=== PATIENT | male | born 1960 | race Caucasian/White ===

== ENCOUNTER 2019-05-05 16:19 | Inpatient (IN) | payer MEDICARE, OTHER ==
[2019-05-05 16:49] LABS: Basophils # (A) 0.1 k/uL (0-0.2); Basophils % (A) 1 %; Eosinophils # (A) 0.2 k/uL (0-0.7); Eosinophils % (A) 2 %; HCT 52.1 % (39.0-53.0); HGB 17.5 gm/dL (13.0-17.5); Lymphocytes # (A) 1.5 k/uL (1.0-4.8); Lymphocytes % (A) 15 %; MCH 31.5 pg (25.0-35.0); MCHC 33.6 g/dL (31.0-37.0); MCV 93.9 fL (80.0-100.0); Mean Platelet Volume 8.6; Monocytes # (A) 0.4 k/uL (0-1.0); Monocytes % (A) 4 %; Neutrophils # (A) 7.4 k/uL (1.3-7.7); Neutrophils % (A) 77 %; Platelet Count 171 k/uL (150-450); RBC 5.54 m/uL (4.30-5.90); RDW 13.1 % (11.5-15.5); WBC 9.6 k/uL (3.8-10.6)
[2019-05-05 16:59] LABS: Albumin 4.5 g/dL (3.5-5.0); Calcium 9.7 mg/dL (8.4-10.2); Potassium 4.3 mmol/L (3.5-5.1); Total Bilirubin 0.7 mg/dL (0.2-1.3); Total Protein 7.3 g/dL (6.3-8.2)
[2019-05-05 17:05] LABS: Prothrombin Time 10.9 sec (9.0-12.0)
[2019-05-05] MEDS ORDERED: NITROGLYCERIN OINT 1 INCH/GM PACKET TOPICAL STA (18:00)
[2019-05-05] MEDS ORDERED: ASPIRIN 81 MG PO STA (18:00)
--- NOTE | 2019-05-05 18:05 | ED ---
General Adult HPI - General Chief complaint: Chest Pain Stated complaint: chest pain Time Seen by Provider: 05/05/19 16:20 Source: patient, RN notes reviewed Mode of arrival: ambulatory Limitations: no limitations - History of Present Illness Initial comments: This is a 59-year-old male who presents emergency Department with a past history significant for diabetes hypertension high cholesterol as well as stent his right carotid. Patient comes in today stating that he's had chest pain on and off over the last 3 days but today it was very significant P patient states he was in the right he started having chest pain became very diaphoretic and short of breath and nauseated. Patient denies any radiation of the pain. Patient states this is similar to the pain is been having over the last couple of days however today's pain was much worse. Patient currently states he only has very minimal chest pain at this time. Patient denies any shortness of breath currently. Patient denies any recent fever chills or cough per patient denies lightheadedness or dizziness. Patient denies any headache patient denies numbness weakness. Patient denies any swelling to legs or calf tenderness. - Related Data Home Medications Medication Instructions Recorded Confirmed Atenolol [Tenormin] 50 mg PO DAILY 05/05/19 05/05/19 Atorvastatin [Lipitor] 20 mg PO HS 05/05/19 05/05/19 Fenofibric Acid (Choline) 45 mg PO HS 05/05/19 05/05/19 [Trilipix] Lisinopril [Zestril] 10 mg PO HS 05/05/19 05/05/19 Pantoprazole Sodium [Protonix] 40 mg PO HS 05/05/19 05/05/19 Venlafaxine HCl [Effexor XR] 75 mg PO DAILY 05/05/19 05/05/19 Allergies Allergy/AdvReac Type Severity Reaction Status Date / Time naproxen [From Naprosyn] Allergy Rash/Hives Verified 05/05/19 18:05 Review of Systems ROS Statement: Those systems with pertinent positive or pertinent negative responses have been documented in the HPI. ROS Other: All systems not noted in ROS Statement are negative. Past Medical History Past Medical History: Hyperlipidemia, Hypertension History of Any Multi-Drug Resistant Organisms: None Reported Past Surgical History: Heart Catheterization With Stent, Orthopedic Surgery Past Psychological History: No Psychological Hx Reported Smoking Status: Never smoker Past Alcohol Use History: None Reported Past Drug Use History: Marijuana General Exam - General Exam Comments Initial Comments: GENERAL: Patient is well-developed and well-nourished. Patient is nontoxic and well- hydrated and is in mild distress. ENT: Neck is soft and supple. No significant lymphadenopathy is noted. Oropharynx is clear. Moist mucous membranes. Neck has full range of motion without eliciting any pain. EYES: The sclera were anicteric and conjunctiva were pink and moist. Extraocular movements were intact and pupils were equal round and reactive to light. Eyelids were unremarkable. PULMONARY: Unlabored respirations. Good breath sounds bilaterally. No audible rales rhonchi or wheezing was noted. CARDIOVASCULAR: There is a regular rate and rhythm without any murmurs gallops or rubs. ABDOMEN: Soft and nontender with normal bowel sounds. No palpable organomegaly was noted. There is no palpable pulsatile mass. SKIN: Skin is clear with no lesions or rashes and otherwise unremarkable. NEUROLOGIC: Patient is alert and oriented x3. Cranial nerves II through XII are grossly intact. Motor and sensory are also intact. Normal speech, volume and content. Symmetrical smile. MUSCULOSKELETAL: Normal extremities with adequate strength and full range of motion. No lower extremity swelling or edema. No calf tenderness. LYMPHATICS: No significant lymphadenopathy is noted PSYCHIATRIC: Normal psychiatric evaluation. Limitations: no limitations Course Vital Signs 05/05/19 16:21 Temperature 97.7 F Pulse Rate 70 Respiratory 18 Rate Blood Pressure 127/81 O2 Sat by Pulse 100 Oximetry Medical Decision Making - Medical Decision Making EKG shows normal sinus rhythm at 60 bpm NV interval 262 QRS is 82 QT interval 400 QTC is 400. Patient's EKG shows T-wave inversions in the lateral leads II, III, and F aVF. Repeat EKG was done patient had sinus bradycardia 50 bpm NV interval is 164 QRS is 74 QT interval 418 QTC is 392. Patient's EKG no longer showed T-wave inversions in the inferior leads. EKG signs of inverted T waves has resolved the patient's pain is considerably better. Because of this I did place the patient on heparin. I spoke with Dr. Thomas he agreed to admit the patient admitted the patient I wrote admitting orders. I continued heparin and aspirin and Nitropaste were continued on the floor and troponins were repeated every 6 hours - Lab Data Result diagrams: 05/05/19 16:37 05/05/19 16:37 Lab Results 05/05/19 05/05/19 05/05/19 Range/Units 16:37 16:37 16:37 WBC 9.6 (3.8-10.6) k/uL RBC 5.54 (4.30-5.90) m/uL Hgb 17.5 (13.0-17.5) gm/dL Hct 52.1 (39.0-53.0) % MCV 93.9 (80.0-100.0) fL MCH 31.5 (25.0-35.0) pg MCHC 33.6 (31.0-37.0) g/dL RDW 13.1 (11.5-15.5) % Plt Count 171 (150-450) k/uL Neutrophils % 77 % Lymphocytes % 15 % Monocytes % 4 % Eosinophils % 2 % Basophils % 1 % Neutrophils # 7.4 (1.3-7.7) k/uL Lymphocytes # 1.5 (1.0-4.8) k/uL Monocytes # 0.4 (0-1.0) k/uL Eosinophils # 0.2 (0-0.7) k/uL Basophils # 0.1 (0-0.2) k/uL PT 10.9 (9.0-12.0) sec INR 1.0 (<1.2) APTT 22.0 (22.0-30.0) sec Sodium 143 (137-145) mmol/L Potassium 4.3 (3.5-5.1) mmol/L Chloride 109 H (98-107) mmol/L Carbon Dioxide 23 (22-30) mmol/L Anion Gap 11 mmol/L BUN 21 H (9-20) mg/dL Creatinine 1.06 (0.66-1.25) mg/dL Est GFR (CKD-EPI)AfAm 88 (>60 ml/min/1.73 sqM) Est GFR (CKD-EPI)NonAf 76 (>60 ml/min/1.73 sqM) Glucose 126 H (74-99) mg/dL Calcium 9.7 (8.4-10.2) mg/dL Magnesium (1.6-2.3) mg/dL Total Bilirubin 0.7 (0.2-1.3) mg/dL AST 21 (17-59) U/L ALT 25 (21-72) U/L Alkaline Phosphatase 50 (38-126) U/L Troponin I (0.000-0.034) ng/mL Total Protein 7.3 (6.3-8.2) g/dL Albumin 4.5 (3.5-5.0) g/dL 05/05/19 05/05/19 Range/Units 16:37 16:37 WBC (3.8-10.6) k/uL RBC (4.30-5.90) m/uL Hgb (13.0-17.5) gm/dL Hct (39.0-53.0) % MCV (80.0-100.0) fL MCH (25.0-35.0) pg MCHC (31.0-37.0) g/dL RDW (11.5-15.5) % Plt Count (150-450) k/uL Neutrophils % % Lymphocytes % % Monocytes % % Eosinophils % % Basophils % % Neutrophils # (1.3-7.7) k/uL Lymphocytes # (1.0-4.8) k/uL Monocytes # (0-1.0) k/uL Eosinophils # (0-0.7) k/uL Basophils # (0-0.2) k/uL PT (9.0-12.0) sec INR (<1.2) APTT (22.0-30.0) sec Sodium (137-145) mmol/L Potassium (3.5-5.1) mmol/L Chloride (98-107) mmol/L Carbon Dioxide (22-30) mmol/L Anion Gap mmol/L BUN (9-20) mg/dL Creatinine (0.66-1.25) mg/dL Est GFR (CKD-EPI)AfAm (>60 ml/min/1.73 sqM) Est GFR (CKD-EPI)NonAf (>60 ml/min/1.73 sqM) Glucose (74-99) mg/dL Calcium (8.4-10.2) mg/dL Magnesium 2.1 (1.6-2.3) mg/dL Total Bilirubin (0.2-1.3) mg/dL AST (17-59) U/L ALT (21-72) U/L Alkaline Phosphatase (38-126) U/L Troponin I <0.012 (0.000-0.034) ng/mL Total Protein (6.3-8.2) g/dL Albumin (3.5-5.0) g/dL Critical Care Time Critical Care Time: Yes Total Critical Care Time: 35 Disposition Clinical Impression: Unstable angina Disposition: ADMITTED IP TO THIS HOSP Referrals: Laly Mijares MD [Primary Care Provider] - 1-2 days Time of Disposition: 18:37
[2019-05-05] MEDS ORDERED: HEPARIN SODIUM,PORCINE 5,000 UNIT/ML 1 ML VIAL IV ONE (18:35)
[2019-05-05] MEDS ORDERED: NITROGLYCERIN SL TABS 0.4 MG TAB SUBLINGUAL PRN (18:44)
[2019-05-05] MEDS ORDERED: HEPARIN SOD,PORK IN 0.45% NACL 25,000 UNIT in 0.45% NACL 1 250ML.BAG IV SCH (18:45)
--- NOTE | 2019-05-05 19:12 | XR ---
EXAMINATION TYPE: XR chest 2V DATE OF EXAM: 05/05/2019 COMPARISON: NONE HISTORY: Chest pain TECHNIQUE: Frontal and lateral views of the chest are obtained. FINDINGS: Heart and mediastinum are normal. Lungs are clear. Diaphragm is normal. There are chest le ads. Bony thorax appears normal. IMPRESSION: Normal chest
[2019-05-05] MEDS ORDERED: ATORVASTATIN 20 MG TAB PO SCH (22:30)
[2019-05-05] MEDS: NITROGLYCERIN OINT 1 INCH/GM PACKET TOPICAL SCH (22:44)
[2019-05-06 00:08] VITALS: RESP 16
[2019-05-06 04:37] LABS: Cholesterol 136 mg/dL (<200); HDL Cholesterol 37 mg/dL (40-60); LDL Cholesterol,Calculated 63 mg/dL (0-99); Triglycerides 179 mg/dL (<150)
[2019-05-06] MEDS: NITROGLYCERIN OINT 1 INCH/GM PACKET TOPICAL SCH (06:48)
[2019-05-06 08:30] VITALS: PULSE 60; TEMP 96.4
--- NOTE | 2019-05-06 08:33 | HP ---
HISTORY AND PHYSICAL A 59-year-old white male with past medical history of diabetes, hypertension, high cholesterol, stent in his right carotid artery comes in with some chest pain over the past 3 days, mostly abdominal pain with nausea, vomiting. He things he has had stomach flu. Discussed with him. His troponins are negative x3. He maybe will need a stress test prior to going home. He has hyperactive bowel sounds, possibly he has some kind of bowel infection. HOME MEDICATIONS: Home medications include: 1. Tenormin 50 daily. 2. Lipitor 20 daily. 3. Trilipix 45 mg daily. 4. Zestril 10 mg daily. 5. Protonix 40 mg daily. 6. Effexor XR 75 mg daily. ALLERGIES: NAPROSYN. REVIEW OF SYSTEMS: Fourteen point review of systems negative except for mentioned in HPI. PAST MEDICAL HISTORY: Carotid stent, hypertension, hyperlipidemia, heart catheterization, orthopedic surgery. PHYSICAL EXAMINATION: VITAL SIGNS: Stable, afebrile. CARDIOVASCULAR: S1, S2. LUNGS: Clear. GI: Increased bowel sounds x4. HEMATOLOGY: Negative Homans. PSYCH: Fair mood and affect. NEUROLOGIC: Alert and oriented x3. ASSESSMENT: 1. Possible gastroenteritis with some nausea and vomiting and diarrhea. 2. Abnormal EKG with history of carotid stent. Possibly a stress test prior to going home. Wait for Cardiology input. Continue his home medications. Abdominal ultrasound and possibly stool cultures. MMODL / IJN: [id number] /
[2019-05-06] MEDS ORDERED: ASPIRIN 325 MG TAB PO SCH (09:00)
[2019-05-06] MEDS ORDERED: VENLAFAXINE HCL ER 75 MG CAP PO SCH (09:00)
[2019-05-06] MEDS ORDERED: ATENOLOL 50 MG TAB PO SCH (09:00)
[2019-05-06 12:16] VITALS: BP 142/73
--- NOTE | 2019-05-06 14:48 | P.CRDCN ---
History of Present Illness History of present illness: This is a pleasant 59-year-old male past medical history significant for paroxysmal atrial fibrillation, hypertension, dyslipidemia, peripheral vascular disease status post carotid stent placement and marijuana use. He does not follow with a apparel stock checker for any reason. The patient states he underwent a heart catheterization approximately 5 years ago that was normal. We have been asked him in consultation secondary to chest discomfort. The patient states for the previous 2 days he has been experiencing lower abdominal discomfort. This is associated with some mild nausea. His symptoms started after eating dinner out with his . He had been tolerating this pain without worsening intensity until yesterday when the pain in his abdomen radiated up into the epigastric region and was associated with nausea and diaphoresis. He denies chest pain, shortness of breath or palpitations. Initial EKG on arrival revealed sinus mechanism with ST changes in the inferior leads, heart rate 60. Repeat EKG 2 hours later showed some improvement in the ST changes. There is no old for comparison. He is seen and examined sitting up in bed in no acute distress. He continues to feel mild discomfort in his lower abdomen. He denies chest pain, shortness of breath, dizziness or palpitations. He states he was previously diagnosed with atrial fibrillation however it resolved when his hyperthyroidism was treated and resolved. He is not on hospital librarian anti-coagulation and never has been per the patient and his . Telemetry tracings reviewed and reveal persistent sinus mechanism. Chest x-ray is negative for an acute cardiopulmonary process. Laboratory data reviewed, WBC 9.6, hemoglobin 17.5, platelets 171, d-dimer 0.26, sodium 143, potassium 4.3, creatinine 1.06, magnesium 2.1, cardiac enzymes negative 3, proBNP 507, LDL 63. Current daily cardiac medications include atenolol 50 mg daily, atorvastatin 20 mg daily, lisinopril 10 mg daily. At the time of my exam: CONSTITUTIONAL: Denies fever. Denies chills. EYES: Denies blurred vision. Denies vision changes. Denies eye pain. EARS, NOSE, MOUTH & THROAT: Denies headache. Denies sore throat. Denies ear pain. CARDIOVASCULAR: Denies chest pain. Denies shortness of breath. Denies orthopnea. Denies PND. Denies palpitations. RESPIRATORY: Denies cough. GASTROINTESTINAL: Complains of vague mild abdominal pain. Denies diarrhea. Denies constipation. Denies nausea. Denies vomiting. MUSCULOSKELETAL: Denies myalgias. INTEGUMENTARY: Denies pruitis. Denies rash. NEUROLOGIC: Denies numbness. Denies tingling. Denies weakness. PSYCHIATRIC: Denies anxiety. Denies depression. ENDOCRINE: Denies fatigue. Denies weight change. Denies polydipsia. Denies polyurina. GENITOURINARY: Denies burning, hematuria or urgency with micturation. HEMATOLOGIC: Denies history of anemia. Denies bleeding. Blood pressure 142/73 heart rate 60 afebrile and maintaining oxygen saturation on room air GENERAL: This is a 59-year-old male in no apparent distress at the time of my examination. HEENT: Head is atraumatic, normocephalic. Pupils are equal, round. Sclerae anicteric. Conjunctivae are clear. Mucous membranes of the mouth are moist. Neck is supple. There is no jugular venous distention. No carotid bruit is heard. LUNGS: Clear to auscultation no wheezes, rales or rhonchi. No chest wall tenderness is noted on palpation or with deep breathing. HEART: Regular rate and rhythm with faint systolic ejection murmur at the left sternal border, no rubs or gallops. S1 and S2 heard. ABDOMEN: Soft, nontender. Bowel sounds are heard. No organomegaly noted. EXTREMITIES: No evidence of peripheral edema and no calf tenderness noted. VASCULAR: Radial and dorsalis pedis pulses palpated, no evidence of clubbing. NEUROLOGIC: Patient is awake, alert and oriented x3. ASSESSMENT Chest pain, atypical. An acute coronary event has been ruled out. Hypertension Dyslipidemia Peripheral vascular disease s/p right carotid stent placement 5 yrs ago. Dyslipidemia PLAN An acute coronary event has been ruled out. Discontinue heparin infusion and nitro-paste. Obtain 2D echocardiogram and doppler study to assess cardiac structure and func tion. Increase activity and ambulation. No documented a-fib on this admission. If in fact he has a-fib he would require hospital librarian anti-coagulation with CHADS-VASC score of 2. REcommend outpatient ev ent monitoring. This will be coordinated through the office. Decrease aspirin to 81 mg daily. Recommend outpatient stress testing. Thank you kindly for this consultation. Nurse Practitioner note has been reviewed, I agree with a documented findings and plan of care. Patient was seen and examined. Past Medical History Past Medical History: Atrial Fibrillation, Hyperlipidemia, Hypertension Additional Past Medical History / Comment(s): borderline diabetic History of Any Multi-Drug Resistant Organisms: None Reported Past Surgical History: Heart Catheterization, Orthopedic Surgery Additional Past Surgical History / Comment(s): Carotid stent right side 5 years ago Past Anesthesia/Blood Transfusion Reactions: No Reported Reaction Past Psychological History: No Psychological Hx Reported Smoking Status: Never smoker Past Alcohol Use History: None Reported Past Drug Use History: Marijuana - Past Family History Mother Family Medical History: CVA/TIA Additional Family Medical History / Comment(s): of stroke Father Family Medical History: Coronary Artery Disease (CAD) Additional Family Medical History / Comment(s): of heart attack Medications and Allergies Home Medications Medication Instructions Recorded Confirmed Type Atenolol [Tenormin] 50 mg PO DAILY 05/05/19 05/05/19 History Atorvastatin [Lipitor] 20 mg PO HS 05/05/19 05/05/19 History Fenofibric Acid (Choline) 45 mg PO HS 05/05/19 05/05/19 History [Trilipix] Lisinopril [Zestril] 10 mg PO HS 05/05/19 05/05/19 History Pantoprazole Sodium [Protonix] 40 mg PO HS 05/05/19 05/05/19 History Venlafaxine HCl [Effexor XR] 75 mg PO DAILY 05/05/19 05/05/19 History Allergies Allergy/AdvReac Type Severity Reaction Status Date / Time naproxen [From Naprosyn] Allergy Rash/Hives Verified 05/05/19 18:05 Physical Exam Vitals: Vital Signs Temp Pulse Pulse Resp BP BP Pulse Ox 05/06/19 12:00 60 16 142/73 99 05/06/19 11:55 16 05/06/19 08:00 96.4 F L 60 16 139/80 97 05/06/19 04:47 98.0 F 64 16 141/69 98 05/06/19 00:07 98.1 F 76 16 141/94 97 05/05/19 22:39 129/93 05/05/19 22:24 98.3 F 75 15 157/87 97 05/05/19 19:14 98.2 F 50 L 16 140/90 98 05/05/19 18:30 52 L 14 127/90 100 05/05/19 18:00 53 L 14 134/85 98 05/05/19 16:21 97.7 F 70 18 127/81 100 Intake and Output 05/05/19 05/06/19 05/06/19 22:59 06:59 14:59 Intake Total 50.546 Balance 50.546 Intake: Intake, IV Titration 50.546 Amount Heparin Sod,Pork in 0.45% 50.546 NaCl 25,000 unit In 0.45 % NaCl 1 250ml.bag @ 12 UNITS/KG/HR 7.62 mls/hr IV .Q24H [facility] Rx#: [id number] Other: Voiding Method Toilet Toilet # Voids 2 1 Weight 63.503 kg 70.3 kg Results 05/05/19 16:37 05/05/19 16:37 Cardiac Enzymes 05/05/19 05/05/19 05/05/19 Range/Units 16:37 16:37 22:16 AST 21 (17-59) U/L Troponin I <0.012 <0.012 (0.000-0.034) ng/mL 05/06/19 Range/Units 04:02 AST (17-59) U/L Troponin I <0.012 (0.000-0.034) ng/mL Coagulation 05/05/19 05/06/19 05/06/19 Range/Units 16:37 00:53 07:51 PT 10.9 (9.0-12.0) sec APTT 22.0 37.2 H 44.9 H (22.0-30.0) sec Lipids 05/06/19 Range/Units 04:02 Triglycerides 179 H (<150) mg/dL Cholesterol 136 (<200) mg/dL HDL Cholesterol 37 L (40-60) mg/dL CBC 05/05/19 Range/Units 16:37 WBC 9.6 (3.8-10.6) k/uL RBC 5.54 (4.30-5.90) m/uL Hgb 17.5 (13.0-17.5) gm/dL Hct 52.1 (39.0-53.0) % Plt Count 171 (150-450) k/uL Comprehensive Metabolic Panel 05/05/19 Range/Units 16:37 Sodium 143 (137-145) mmol/L Potassium 4.3 (3.5-5.1) mmol/L Chloride 109 H (98-107) mmol/L Carbon Dioxide 23 (22-30) mmol/L BUN 21 H (9-20) mg/dL Creatinine 1.06 (0.66-1.25) mg/dL Glucose 126 H (74-99) mg/dL Calcium 9.7 (8.4-10.2) mg/dL AST 21 (17-59) U/L ALT 25 (21-72) U/L Alkaline Phosphatase 50 (38-126) U/L Total Protein 7.3 (6.3-8.2) g/dL Albumin 4.5 (3.5-5.0) g/dL Current Medications Generic Name Dose Route Start Last Admin Trade Name Freq PRN Reason Stop Dose Admin Aspirin 325 mg 05/06/19 09:00 Aspirin PO DAILY [facility] Atenolol 50 mg 05/06/19 09:00 Tenormin PO DAILY [facility] Atorvastatin Calcium 20 mg 05/05/19 22:30 05/05/19 22:44 Lipitor PO 20 mg HS [facility] Administration Fenofibrate 54 mg 05/06/19 21:00 Lofibra PO HS [facility] Heparin Sodium/Sodium Chloride 250 mls @ 7.62 mls/hr 05/05/19 18:45 05/06/19 01:48 25,000 unit/ Sodium Chloride IV 15 units/kg/hr .Q24H MICHAEL 9.525 mls/hr Titration Protocol 12 UNITS/KG/HR Lisinopril 10 mg 05/06/19 21:00 Zestril PO HS [facility] Nitroglycerin 0.4 mg 05/05/19 18:44 Nitrostat SUBLINGUAL Q5M PRN Chest Pain Nitroglycerin 1 inch 05/06/19 00:00 05/06/19 06:48 Nitro-Bid Oint TOPICAL Not Given Q6HR [facility] Pantoprazole Sodium 40 mg 05/06/19 21:00 Protonix PO HS [facility] Venlafaxine HCl 75 mg 05/06/19 09:00 Effexor Xr PO DAILY [facility] Intake and Output 05/05/19 05/06/19 05/06/19 22:59 06:59 14:59 Intake Total 50.546 Balance 50.546 Intake: Intake, IV Titration 50.546 Amount Heparin Sod,Pork in 0.45% 50.546 NaCl 25,000 unit In 0.45 % NaCl 1 250ml.bag @ 12 UNITS/KG/HR 7.62 mls/hr IV .Q24H [facility] Rx#: [id number] Other: Voiding Method Toilet Toilet # Voids 2 1 Weight 63.503 kg 70.3 kg 05/05/19 16:37 05/05/19 16:37
--- NOTE | 2019-05-06 16:12 | P.DS ---
Providers Date of admission: 05/05/19 18:44 Expected date of discharge: 05/06/19 Attending physician: Jamin Thomas Consults: 05/05/19 18:44 Consult Physician Urgent Consulting Provider: [facility] Consult Reason/Comments: Unstable angina Do you want consulting provider notified?: Yes Primary care physician: Laly Mijares Hospital Course: Final Diagnoses: -Chest pain, atypical, acute coronary event ruled out as per cardiology -Abnormal EKG, history of carotid stent, normal echo reported with outpatient stress , event monitor recommended per cardiology -Possibly gastroenteritis, nausea vomiting diarrhea subsided. -Hypertension -Dyslipidemia -Peripheral vascular disease Hospital course this is 59-year-old gentleman admitted with chest pain, hypertension, peripheral vascular disease, dyslipidemia, nausea, vomiting. Other medical issues. Evaluated by cardiology, acute coronary event ruled out. 2-D echo Doppler verbal report as normal per cardiology SCALLOP CUTTER with cardiac clearance for discharge, recommending outpatient stress test and outpatient event monitoring. GI symptoms subsided. Significant clinical improvement. Patient will be discharged home today in a stable condition with guarded prognosis. EXAM: GENERAL: Alert and oriented 3, no acute distress CARDIOVASCULAR: S1, S2 regular. No murmur RESPIRATION: Breath sounds diminished in the bases. No rhonchi or crackles. No wheezing. ABDOMEN: Soft, nontender . No guarding. no masses palpable. Bowel sounds heard. NERVOUS SYSTEM: No focal deficits. The impression and plan of care has been dictated as directed. : I performed a history and examination of this patient, discussed the same with the dictator. I agree with the dictator's note ,documented as a scribe. Any additional findings or plans will be noted. Time taken: 35 minutes Patient Condition at Discharge: Stable Plan - Discharge Summary Discharge Rx Participant: No New Discharge Prescriptions: New Aspirin EC [Ecotrin Low Dose] 81 mg PO DAILY #1 tablet.dr Mcconnell Pantoprazole Sodium [Protonix] 40 mg PO HS Atorvastatin [Lipitor] 20 mg PO HS Venlafaxine HCl [Effexor XR] 75 mg PO DAILY Lisinopril [Zestril] 10 mg PO HS Fenofibric Acid (Choline) [Trilipix] 45 mg PO HS Atenolol [Tenormin] 50 mg PO DAILY Discharge Medication List Atenolol [Tenormin] 50 mg PO DAILY 05/05/19 [History] Atorvastatin [Lipitor] 20 mg PO HS 05/05/19 [History] Fenofibric Acid (Choline) [Trilipix] 45 mg PO HS 05/05/19 [History] Lisinopril [Zestril] 10 mg PO HS 05/05/19 [History] Pantoprazole Sodium [Protonix] 40 mg PO HS 05/05/19 [History] Venlafaxine HCl [Effexor XR] 75 mg PO DAILY 05/05/19 [History] Aspirin EC [Ecotrin Low Dose] 81 mg PO DAILY #1 tablet. 05/06/19 [Rx] Follow up Appointment(s)/Referral(s): Jamin Thomas MD [STAFF PHYSICIAN] - 1 Week David Rivero MD [STAFF PHYSICIAN] - 05/29/19 3:15 pm Activity/Diet/Wound Care/Special Instructions: Pending final DC recommendations/clearance from cardiology. Confirm cardiology follow-up appointment prior to discharge. 2-D echo Doppler pending. Outpatient event monitoring to be coordinated through the cardiology office.
--- NOTE | 2019-05-06 18:00 | ECHOF ---
Referral Reason:chest pain MEASUREMENTS -------- HEIGHT: 167.6 cm WEIGHT: 63.5 kg BP: RVIDd: 2.6 cm (< 3.3) IVSd: 0.8 cm (0.6 - 1.1) LVIDd: 4.7 cm (3.9 - 5.3) LVPWd: 0.8 cm (0.6 - 1.1) IVSs: 1.6 cm LVIDs: 2.0 cm LVPWs: 1.8 cm LAESV Index (A-L): 26.25 ml/m Ao Diam: 2.8 cm (2.0 - 3.7) AV Cusp: 2.0 cm (1.5 - 2.6) LA Diam: 3.7 cm (2.7 - 3.8) MV EXCURSION: 12.495 mm (> 18.000) MV EF SLOPE: 148 mm/s (70 - 150) EPSS: 0.6 cm MV E Catracho: 0.80 m/s MV DecT: 167 ms MV A [place]: 0.48 m/s MV E/A Ratio: 1.69 AR PHT: 456 ms RAP: 5.00 mmHg RVSP: 17.18 mmHg TAPSE: 20.13 mm FINDINGS -------- Sinus rhythm. This was a technically good study. The left ventricular size is normal. Left ventricular wall thickness is normal. Overall left vent ricular systolic function is normal with, an EF between 55 - 60 %. The diastolic filling pattern is normal for the age of the patient 14.77. The right ventricle is normal in size. The right ventricular wall thickness is normal measuring < 5 mm. Normal LA size by volume 22+/-6 ml/m2. The right atrial size is normal. The aortic valve is trileaflet and appears structurally normal. There is mild aortic regurgitation. The mitral valve is normal. Mild mitral regurgitation is present. The tricuspid valve appears structurally normal. Mild tricuspid regurgitation present. Right vent ricular systolic pressure is normal at < 35 mmHg. There is no pulmonic regurgitation present. The aortic root size is normal. Normal inferior vena cava with normal inspiratory collapse consistent with estimated right atrial pre ssure of 5 mmHg. There is no pericardial effusion. CONCLUSIONS -------- 1. Sinus rhythm. 2. This was a technically good study. 3. The left ventricular size is normal. 4. Left ventricular wall thickness is normal. 5. Overall left ventricular systolic function is normal with, an EF between 55 - 60 %. 6. The diastolic filling pattern is normal for the age of the patient 14.77 7. The right ventricle is normal in size. 8. Normal LA size by volume 22+/-6 ml/m2. 9. The aortic valve is trileaflet and appears structurally normal. 10. There is mild aortic regurgitation. 11. The mitral valve is normal. 12. Mild mitral regurgitation is present. 13. The tricuspid valve appears structurally normal. 14. Mild tricuspid regurgitation present. 15. Right ventricular systolic pressure is normal at < 35 mmHg. 16. There is no pulmonic regurgitation present. 17. The aortic root size is normal. 18. Normal inferior vena cava with normal inspiratory collapse consistent with estimated right atrial pressure of 5 mmHg. 19. There is no pericardial effusion. LABORATORY TECHNICIAN: Elvia Stephenson RDCS
[2019-05-06] MEDS ORDERED: PANTOPRAZOLE 40 MG TABLET PO SCH (21:00)
[2019-05-06] MEDS ORDERED: LISINOPRIL 10 MG TAB PO SCH (21:00)
[2019-05-06] MEDS ORDERED: FENOFIBRATE 54 MG TAB PO SCH (21:00)
[2019-05-07] MEDS ORDERED: ASPIRIN 81 MG PO SCH (09:00)
== END 2019-05-06 16:46 | disposition home or self-care (01) | DRG 313 ==
LOC: EC 16:19 → 3SCARD 18:44
PROVIDERS: ADMIT Family Medicine; ATTEND Family Medicine
DX: R07.89 Other chest pain (principal); E11.51 Type 2 diabetes mellitus with diabetic peripheral angiopathy without gangrene; E78.00 Pure hypercholesterolemia, unspecified; E78.5 Hyperlipidemia, unspecified; I10 Essential (primary) hypertension; K52.9 Noninfective gastroenteritis and colitis, unspecified; Z79.899 Other long term (current) drug therapy; Z88.6 Allergy status to analgesic agent; Z95.820 Peripheral vascular angioplasty status with implants and grafts; Z82.3 Family history of stroke; Z82.49 Family history of ischemic heart disease and other diseases of the circulatory system
CPT/HCPCS: 36415; 71046; 80053; 80061; 83735; 83880; 84484; 85025; 85379; 85610; 85730; 93005; 93306; 96365; 96366; 96376; 99291

== ENCOUNTER 2020-02-09 14:37 | Emergency (ER) | payer MEDICARE, OTHER ==
[2020-02-09 14:49] VITALS: BP 130/69; PULSE 63; RESP 18; TEMP 98.5
[2020-02-09] MEDS ORDERED: CEPHALEXIN 500 MG CAP PO STA (15:56)
--- NOTE | 2020-02-09 16:01 | ED ---
General Adult HPI - General Chief complaint: Skin/Abscess/Foreign Body Stated complaint: Bug Bite on L Hand/Swelling Time Seen by Provider: 02/09/20 15:44 Source: patient, RN notes reviewed, old records reviewed Mode of arrival: ambulatory Limitations: no limitations, physical limitation - History of Present Illness Initial comments: 59-year-old male patient presents to ED for possible hand injury or infection. Patient reports that he is always using his hands and working outside. He reports that today he woke up with redness to ED dorsal aspect of his third digit left sided as well as swelling to the dorsal aspect of the hand. Denies anything bite him or any penetrating trauma that she remembers occurring. Patient also reports that he was hospitalized back in August at [facility] and they never found out why he was sick, he is requesting a covid test. Systemic: Pt denies fatigue, fever/chills. Pt denies weakness, night sweats, w eight loss. Neuro: Pt denies headache, visual disturbances, syncope or pre-syncope. HEENT: Pt denies ocular discharge or irritation, otalgia, rhinorrhea, pharyngitis or notable lymphadenopathy. Cardiopulmonary: Pt denies chest pain, SOB, heart palpitations, dyspnea on exertion. Abdominal/GI: Pt denies abdominal pain, n/v/d. : Pt denies dysuria, burning w/ urination, frequency/urgency. Denies new onset urinary or bowel incontinence. MSK: Pt denies myalgia, loss of strength or function in extremities. Neuro: Pt denies new onset weakness, paresthesias. - Related Data Home Medications Medication Instructions Recorded Confirmed Atenolol [Tenormin] 50 mg PO DAILY 05/05/19 05/05/19 Atorvastatin [Lipitor] 20 mg PO HS 05/05/19 05/05/19 Fenofibric Acid (Choline) 45 mg PO HS 05/05/19 05/05/19 [Trilipix] Lisinopril [Zestril] 10 mg PO HS 05/05/19 05/05/19 Pantoprazole Sodium [Protonix] 40 mg PO HS 05/05/19 05/05/19 Venlafaxine HCl [Effexor XR] 75 mg PO DAILY 05/05/19 05/05/19 Previous Rx's Medication Instructions Recorded Aspirin EC [Ecotrin Low Dose] 81 mg PO DAILY #1 tablet. 05/06/19 Cephalexin [Keflex] 500 mg PO Q6HR 10 Days #40 cap 02/09/20 Allergies Allergy/AdvReac Type Severity Reaction Status Date / Time naproxen [From Naprosyn] Allergy Rash/Hives Verified 02/09/20 14:49 Review of Systems ROS Statement: Those systems with pertinent positive or pertinent negative responses have been documented in the HPI. ROS Other: All systems not noted in ROS Statement are negative. Past Medical History Past Medical History: Atrial Fibrillation, Hyperlipidemia, Hypertension Additional Past Medical History / Comment(s): borderline diabetic History of Any Multi-Drug Resistant Organisms: None Reported Past Surgical History: Heart Catheterization, Heart Catheterization With Stent, Orthopedic Surgery Additional Past Surgical History / Comment(s): Carotid stent right side 5 years ago Past Anesthesia/Blood Transfusion Reactions: No Reported Reaction Past Psychological History: No Psychological Hx Reported Smoking Status: Never smoker Past Alcohol Use History: None Reported Past Drug Use History: Marijuana - Past Family History Mother Family Medical History: CVA/TIA Additional Family Medical History / Comment(s): of stroke Father Family Medical History: Coronary Artery Disease (CAD) Additional Family Medical History / Comment(s): of heart attack General Exam - General Exam Comments Initial Comments: Constitutional: NAD, AOX3, Pt has pleasant affect. HEENT: NC/AT, trachea midline, neck supple, no lymphadenopathy. External ears appear normal, without discharge. Mucous membranes moist. EOM intact. There is no scleral icterus. No pallor noted. Cardiopulmonary: RRR, no murmurs, rubs or gallops, no JVD noted. Lungs CTAB in anterior and posterior irwin. No peripheral edema. Abdominal exam: Abdomen soft and non-distended. Abdomen non-tender to palpation in all 4 quadrants. Neuro: CN II-XII grossly intact. No nuchal rigidity. No raccon eyes, no mathur sign, MSK: Left hand small amount of erythema and drainage noted on the distal aspect of the dorsal third MCP joint. Small amount of soft tissue swelling erythema is noted of the dorsum of the hand. Full active range of motion of digits. Neurovascularly intact. No flexor tenderness. Limitations: no limitations, physical limitation Course Vital Signs 02/09/20 14:43 Temperature 98.5 F Pulse Rate 63 Respiratory 18 Rate Blood Pressure 130/69 O2 Sat by Pulse 100 Oximetry Medical Decision Making - Medical Decision Making 59-year-old male patient presents to ED for evaluation of possible left hand infection. Patient will signs are stable, afebrile. He states the symptoms began this morning. Physical exam doesn't display erythema and drainage to the dorsal aspect of the third MCP joint. Full active range of motion. Plain films displayed arthropathy of the third digit, small metallic density. Patient reports that he does not remember any sort of penetrating trauma recently. This is likely nonacute. Culture was obtained. Patient was placed on Keflex 4 times a day. We'll follow up with primary care provider and have strict return precautions. Patient will also be tested for coronavirus at his request. case discussed with and pt seen by Dr. Blackwood. Disposition Clinical Impression: Infection of hand Disposition: HOME SELF-CARE Condition: Stable Instructions (If sedation given, give patient instructions): Cellulitis (ED) Additional Instructions: Take antibiotics as directed. Follow-up with primary care provider tomorrow. Return to ER if symptoms do not improve or worsen after 24 hours. Prescriptions: Cephalexin [Keflex] 500 mg PO Q6HR 10 Days #40 cap Is patient prescribed a controlled substance at d/c from ED?: No Referrals: Laly Mijares MD [Primary Care Provider] - 1-2 days
--- NOTE | 2020-02-09 16:07 | XR ---
Left hand HISTORY: Pain, trauma, bitten 3 views of the left hand Bone mineralization, joint spaces and alignment are maintained. Hooked osteophytes present at the dis clemente third metacarpal. Small metallic density present at the volar aspect of the third digit at the di stal metacarpal level. Marginal spurring present at the third metacarpophalangeal joint. There is sof t tissue swelling. IMPRESSION: Probable arthropathy change third digit, correlate for puncture site level and possible f oreign body.
[2020-02-09] MEDS ORDERED: CEPHALEXIN 500MG STARTER PACK 4 CAP BTL PO STA (16:45)
== END 2020-02-09 16:58 | disposition home or self-care (01) ==
LOC: EC 14:37
DX: Z03.818 Encounter for observation for suspected exposure to other biological agents ruled out (principal); L08.9 Local infection of the skin and subcutaneous tissue, unspecified; M19.042 Primary osteoarthritis, left hand; I48.91 Unspecified atrial fibrillation; E78.5 Hyperlipidemia, unspecified; I10 Essential (primary) hypertension; R73.03 Prediabetes; Z95.5 Presence of coronary angioplasty implant and graft; Z79.899 Other long term (current) drug therapy; Z88.6 Allergy status to analgesic agent
CPT/HCPCS: 87070; 87205; 87077; 87186; 73130; 99284; U0003

== ENCOUNTER → 2022-03-03 | Outpatient (CLI) | payer MEDICARE, OTHER ==
[2022-03-03 22:20] LABS: Basophils # (A) 0.03 X 10*3/uL (0.00-0.10); Basophils % (A) 0.4 %; Eosinophils # (A) 0.09 X 10*3/uL (0.04-0.35); Eosinophils % (A) 1.2 %; HCT 43.8 % (39.6-50.0); HGB 14.5 g/dL (13.0-17.0); Immature Grans, Automated 0.4 %; Lymphocytes # (A) 2.47 X 10*3/uL (0.90-5.00); Lymphocytes % (A) 32.2 %; MCHC 33.1 g/dL (32.0-37.0); MCV 93.8 fL (80.0-97.0); Mean Platelet Volume 11.8 fL (9.5-12.2); Monocytes # (A) 0.61 X 10*3/uL (0.20-1.00); NRBC Per 100 WBC 0 /100 WBCS (0.0-0.0); Neutrophils # (A) 4.44 X 10*3/uL (1.80-7.70); Neutrophils % (A) 57.8 %; Platelet Count 186 X 10*3/uL (140-440); RBC 4.67 X 10*6/uL (4.40-5.60); RDW 12.6 % (11.5-14.5); WBC 7.67 X 10*3/uL (4.50-10.00)
[2022-03-03 22:33] LABS: African American GFR (CKD) 90.2 (60.0-200.0); Anion Gap 10.6 mmol/L (10.00-18.00); BUN/Creat Ratio 14.12 Ratio (12.00-20.00); Blood Urea Nitrogen 14.4 mg/dL (9.0-27.0); Calcium 9.4 mg/dL (8.7-10.3); Carbon Dioxide 25.4 mmol/L (20.0-27.5); Non-African American GFR(CKD) 77.9 (60.0-200.0); Potassium 4.4 mmol/L (3.5-5.5)
[2022-03-03 23:17] LABS: INR 0.95 (0.90-1.11); Prothrombin Time 10.8 sec (9.9-11.9)
== END | disposition home or self-care (01) ==
LOC: LABWHC1 13:56
PROVIDERS: ATTEND Internal Medicine Cardiovascular Disease
DX: Z01.812 Encounter for preprocedural laboratory examination (principal); I70.213 Atherosclerosis of native arteries of extremities with intermittent claudication, bilateral legs; R07.89 Other chest pain; E78.5 Hyperlipidemia, unspecified; R00.1 Bradycardia, unspecified; I65.23 Occlusion and stenosis of bilateral carotid arteries
CPT/HCPCS: 36415; 80048; 85025; 85610

== ENCOUNTER 2023-12-10 01:19 | Inpatient (IN) | payer MEDICARE, OTHER ==
[2023-12-10 01:26] LABS: Glucose,Whole Blood 266 mg/dL (70-110)
[2023-12-10] MEDS: MIDAZOLAM 1 MG/ML 5 ML VIAL IV STA ×2 (01:31→02:54)
[2023-12-10] MEDS: ONDANSETRON 4 MG/2 ML VIAL IVP STA (01:58)
[2023-12-10 01:59] LABS: Basophils # (A) 0.1 k/uL (0-0.2); Basophils % (A) 0 %; Eosinophils % (A) 0 %; HCT 48.4 % (39.0-53.0); HGB 15.2 gm/dL (13.0-17.5); Lymphocytes # (A) 2.2 k/uL (1.0-4.8); Lymphocytes % (A) 16 %; MCH 31.5 pg (25.0-35.0); MCHC 31.4 g/dL (31.0-37.0); MCV 100.1 fL (80.0-100.0); Mean Platelet Volume 9.3; Monocytes # (A) 0.5 k/uL (0-1.0); Monocytes % (A) 4 %; Neutrophils # (A) 11.1 k/uL (1.3-7.7); Neutrophils % (A) 79 %; Platelet Count 239 k/uL (150-450); RBC 4.83 m/uL (4.30-5.90); RDW 12.8 % (11.5-15.5); WBC 14.1 k/uL (3.8-10.6)
[2023-12-10 02:11] LABS: ALT 39 U/L (4-49); AST 31 U/L (17-59); African American GFR (CKD) >90 (>60 ml/min/1.73 sqM); Albumin 4.4 g/dL (3.5-5.0); Alcohol <10 mg/dL; Alkaline Phosphatase 80 U/L (38-126); Blood Urea Nitrogen 11 mg/dL (9-20); Calcium 8.1 mg/dL (8.4-10.2); Chloride 97 mmol/L (98-107); Glucose 295 mg/dL (74-99); Non-African American GFR(CKD) >90 (>60 ml/min/1.73 sqM); Potassium 3.5 mmol/L (3.5-5.1); Sodium 131 mmol/L (137-145); Total Bilirubin 0.6 mg/dL (0.2-1.3); Total Protein 6.8 g/dL (6.3-8.2)
[2023-12-10 02:21] LABS: Carbon Dioxide <5 mmol/L (22-30)
[2023-12-10 02:22] LABS: INR 0.9 (<1.2); Prothrombin Time 10.5 sec (10.0-12.5)
[2023-12-10 02:23] LABS: Partial Thromboplastin Time 18.1 sec (22.0-30.0)
[2023-12-10] MEDS: METOCLOPRAMIDE 5 MG/ML 2 ML VIAL IVP STA (02:26)
[2023-12-10] MEDS: diphenhydrAMINE 50 MG/ML 1 ML VIAL IVP STA (02:26)
[2023-12-10] MEDS: LORazepam 2 MG/ML INJ IV STA (02:35)
[2023-12-10 03:11] LABS: Acetaminophen <10.0 ug/mL; Salicylate <1.0 mg/dL
--- NOTE | 2023-12-10 03:32 | ED ---
Seizure HPI - General Chief Complaint: Seizure Stated Complaint: Seizure Time Seen by Provider: 12/10/23 01:30 Source: EMS Mode of arrival: EMS - History of Present Illness Initial Comments: 63-year-old male with past medical history of A-fib, hypertension, hyperlipidem ia, carotid disease with stent who presents emergency department after a seizure. Long-term significant other is at bedside and helps provide the history. States that he was complaining that he did not feel well last night and was having some nausea. He ambulated to the bathroom. When he came back and laid in bed he had a full tonic-clonic seizure which lasted approximately 3 minutes. She states he was foaming at the mouth. EMS was called. Upon EMS transport the patient was postictal and became extremely combative. He presents here and is agitated, kicking, attempting to leave. He was given 5 mg of IM Versed by EMS. No history of seizure-like activity. No history of recent alcohol use. Patient has no lateralizing weakness. No fevers. No head injury. Patient is on Plavix. No other alleviating, precipitating or modifying factors - Related Data Home Medications Medication Instructions Recorded Confirmed Atorvastatin [Lipitor] 20 mg PO HS 05/05/19 12/10/23 Venlafaxine HCl [Effexor XR] 150 mg PO DAILY 02/09/20 12/10/23 Aspirin 81 mg PO DAILY 12/10/23 12/10/23 Lisinopril-Hctz 20-25 mg 1 tab PO DAILY 12/10/23 12/10/23 [Zestoretic 20-25] Omeprazole Magnesium [PriLOSEC OTC] 20 mg PO DAILY 12/10/23 12/10/23 amLODIPine [Norvasc] 10 mg PO DAILY 12/10/23 12/10/23 Previous Rx's Medication Instructions Recorded Apixaban [Eliquis] 5 mg PO BID #90 tab 12/17/23 Metoprolol Tartrate [Lopressor] 50 mg PO BID #90 tab 12/17/23 ceFAZolin [Kefzol] 2 gm IVP Q8HR 10 Days ml 12/17/23 Allergies Allergy/AdvReac Type Severity Reaction Status Date / Time naproxen [From Naprosyn] Allergy Rash/Hives Verified 12/10/23 07:48 Review of Systems ROS Statement: Those systems with pertinent positive or pertinent negative responses have been documented in the HPI. ROS Other: All systems not noted in ROS Statement are negative. Past Medical History Past Medical History: Atrial Fibrillation, Hyperlipidemia, Hypertension Additional Past Medical History / Comment(s): borderline diabetic History of Any Multi-Drug Resistant Organisms: MRSA Date of last positivie culture/infection: 02/09/20 MDRO Source:: HAND MRSA Past Surgical History: Heart Catheterization, Heart Catheterization With Stent, Orthopedic Surgery Additional Past Surgical History / Comment(s): Carotid stent right side 5 years ago Past Anesthesia/Blood Transfusion Reactions: No Reported Reaction Past Psychological History: No Psychological Hx Reported Smoking Status: Never smoker Past Alcohol Use History: None Reported Past Drug Use History: Marijuana - Past Family History Mother Family Medical History: CVA/TIA Additional Family Medical History / Comment(s): of stroke Father Family Medical History: Coronary Artery Disease (CAD) Additional Family Medical History / Comment(s): of heart attack General Exam Limitations: altered mental status General appearance: in distress, other (Agitated) Head exam: Present: atraumatic, normocephalic, normal inspection Eye exam: Present: normal appearance, PERRL, EOMI. Absent: scleral icterus, conjunctival injection, periorbital swelling ENT exam: Present: normal exam, mucous membranes moist Neck exam: Present: normal inspection. Absent: tenderness, meningismus, lymphadenopathy Respiratory exam: Present: normal lung sounds bilaterally. Absent: respiratory distress, wheezes, rales, rhonchi, stridor Extremities exam: Present: normal inspection, full ROM, normal capillary refill. Absent: tenderness, pedal edema, joint swelling, calf tenderness Neurological exam: Present: altered Psychiatric exam: Present: agitated Course Vital Signs 12/10/23 12/10/23 12/10/23 01:27 01:37 02:37 Temperature 98.3 F Pulse Rate 124 H 141 H 135 H Respiratory 16 27 H 26 H Rate Blood Pressure 170/98 170/88 170/97 O2 Sat by Pulse 93 L 92 L 96 Oximetry 12/10/23 12/10/23 12/10/23 03:30 04:30 05:30 Temperature Pulse Rate 142 H 142 H 122 H Respiratory 24 21 24 Rate Blood Pressure 135/84 108/71 119/66 O2 Sat by Pulse 96 95 95 Oximetry 12/10/23 12/10/23 12/10/23 07:58 09:51 10:35 Temperature Pulse Rate 130 H 134 H 123 H Respiratory 18 18 18 Rate Blood Pressure 151/95 127/83 112/68 O2 Sat by Pulse 96 96 97 Oximetry 12/10/23 12/10/23 12/10/23 13:00 14:54 17:18 Temperature 99.5 F Pulse Rate 88 90 100 Respiratory 18 18 18 Rate Blood Pressure 104/55 105/60 120/74 O2 Sat by Pulse 97 96 97 Oximetry 12/10/23 12/10/23 12/10/23 19:42 20:00 21:00 Temperature Pulse Rate 106 H 63 73 Respiratory 14 20 17 Rate Blood Pressure 123/60 129/60 123/73 O2 Sat by Pulse 97 100 97 Oximetry 12/10/23 12/10/23 12/11/23 22:00 23:00 00:00 Temperature Pulse Rate 80 76 70 Respiratory 18 18 16 Rate Blood Pressure 114/81 132/80 111/53 O2 Sat by Pulse 97 97 97 Oximetry 12/11/23 12/11/23 12/11/23 01:00 02:00 03:00 Temperature Pulse Rate 74 83 76 Respiratory 16 16 18 Rate Blood Pressure 129/73 130/85 121/61 O2 Sat by Pulse 98 97 98 Oximetry 12/11/23 12/11/23 12/11/23 04:00 07:50 08:15 Temperature 98.6 F Pulse Rate 76 86 83 Respiratory 18 16 17 Rate Blood Pressure 138/79 168/81 142/66 O2 Sat by Pulse 98 97 99 Oximetry 12/11/23 12/11/23 12/11/23 09:00 10:15 11:02 Temperature Pulse Rate 74 64 78 Respiratory 17 17 18 Rate Blood Pressure 144/74 155/99 169/68 O2 Sat by Pulse 95 98 96 Oximetry 12/11/23 12/11/23 12/11/23 12:05 13:05 14:10 Temperature 98.6 F Pulse Rate 73 84 85 Respiratory 17 19 17 Rate Blood Pressure 148/75 146/71 O2 Sat by Pulse 97 98 97 Oximetry 12/11/23 12/11/23 12/11/23 15:03 16:08 17:04 Temperature 98.8 F Pulse Rate 75 85 71 Respiratory 17 18 19 Rate Blood Pressure 144/66 165/94 167/86 O2 Sat by Pulse 98 94 L 96 Oximetry 12/11/23 17:23 Temperature 97.6 F Pulse Rate Respiratory Rate Blood Pressure O2 Sat by Pulse Oximetry Medical Decision Making - Medical Decision Making Was pt. sent in by a medical professional or institution (GENTRY Castaneda, READING PROFESSOR, urgent care, hospital, or residential...) When possible be specific @ -No Did you speak to anyone other than the patient for history (EMS, parent, family, police, friend...)? What history was obtained from this source @ -Spoke with EMS for history Did you review nursing and triage notes (agree or disagree)? Why? @ -I reviewed and agree with nursing and triage notes Were old charts reviewed (outside hosp., previous admission, EMS record, old EKG, old radiological studies, urgent care reports/EKG's, residential records)? Report findings @ -No old charts were reviewed Differential Diagnosis (chest pain, altered mental status, abdominal pain women, abdominal pain men, vaginal bleeding, weakness, fever, dyspnea, syncope, headache, dizziness, GI bleed, back pain, seizure, CVA, palpatations, mental health, musculoskeletal)? @ -Differential Altered Mental Status: Hypoglycemia, DKA, hypercapnia, ETOH, overdose, CO poisoning, trauma, myxedema coma, HTN encephalopathy, infection, encephalitis, psychosis, intercranial hemorrhage, hepatic encephalopathy, meningitis, CVA, this is not meant to be an all-inclusive list EKG interpreted by me (3pts min.). @ -Yes and demonstrates a flutter with a rate of 131. QRS 90. QTc of 409. ST elevation aVL. ST depression 2, 3, aVF as well as V3 through V6 X-rays interpreted by me (1pt min.). @ -Yes and demonstrates no acute process CT interpreted by me (1pt min.). @ -Yes and demonstrates no acute process U/S interpreted by me (1pt. min.). @ -None done What testing was considered but not performed or refused? (CT, X-rays, U/S, labs)? Why? @ -None What meds were considered but not given or refused? Why? @ -None Did you discuss the management of the patient with other professionals (damion fried i.e. , GENTRY, READING PROFESSOR, lab, RT, psych nurse, director of social work, adventure education teacher, teacher, environmental protection officer, counseling case manager)? Give summary @ -Spoke with Dr. Mercedes at 5:18 AM Was smoking cessation discussed for >3mins.? @ -No Was critical care preformed (if so, how long)? @ -No Were there social determinants of health that impacted care today? How? (Homelessness, low income, unemployed, alcoholism, drug addiction, transportation, low edu. Level, literacy, decrease access to med. care, fci, rehab)? @ -No Was there de-escalation of care discussed even if they declined (Discuss DNR or withdrawal of care, Hospice)? DNR status @ -No What co-morbidities impacted this encounter? (DM, HTN, Smoking, COPD, CAD, Cancer, CVA, ARF, Chemo, Hep., AIDS, mental health diagnosis, sleep apnea, morbid obesity)? @ -None Was patient admitted / discharged? Hospital course, mention meds given and route, prescriptions, significant lab abnormalities, going to OR and other pertinent info. @ -Upon arrival patient was seen and evaluated in room 6. Thorough history and physical exam was performed. Patient is agitated and flailing through his whole exam and therefore he was given 10 mg of Versed by myself. He is taken for CT of his brain which is negative. He is placed back in the room and laboratory studies are conducted. Patient remains agitated throughout his whole stay and does not return to his baseline. I did speak with Dr. Hager in regards to him. He recommends an EEG which I ordered. I spoke with Dr. Kurtz who will admit the patient. Large differential at this time for patient's new onset seizure Undiagnosed new problem with uncertain prognosis? @ -Yes Drug Therapy requiring intensive monitoring for toxicity (Heparin, Nitro, Insulin, Cardizem)? @ -No Were any procedures done? @ -No Diagnosis/symptom? @ -Acute encephalopathy, new onset seizure, new onset A-fib with RVR, abnormal EKG, elevated troponin Acute, or Chronic, or Acute on Chronic? @ -Acute Uncomplicated (without systemic symptoms) or Complicated (systemic symptoms)? @ -Complicated Side effects of treatment? @ -No Exacerbation, Progression, or Severe Exacerbation? @ -No Poses a threat to life or bodily function? How? (Chest pain, USA, SD, pneumonia, PE, COPD, DKA, ARF, appy, cholecystitis, CVA, Diverticulitis, Homicidal, Suicidal, threat to staff... and all critical care pts) @ -Yes as patient has not returned to his baseline - Lab Data Result diagrams: 12/15/23 06:52 12/17/23 06:37 Lab Results 12/10/23 12/10/23 12/10/23 Range/Units 01:25 01:39 01:39 WBC 14.1 H (3.8-10.6) k/uL RBC 4.83 (4.30-5.90) m/uL Hgb 15.2 (13.0-17.5) gm/dL Hct 48.4 (39.0-53.0) % MCV 100.1 H (80.0-100.0) fL MCH 31.5 (25.0-35.0) pg MCHC 31.4 (31.0-37.0) g/dL RDW 12.8 (11.5-15.5) % Plt Count 239 (150-450) k/uL MPV 9.3 Neutrophils % 79 % Lymphocytes % 16 % Monocytes % 4 % Eosinophils % 0 % Basophils % 0 % Neutrophils # 11.1 H (1.3-7.7) k/uL Lymphocytes # 2.2 (1.0-4.8) k/uL Monocytes # 0.5 (0-1.0) k/uL Eosinophils # 0.0 (0-0.7) k/uL Basophils # 0.1 (0-0.2) k/uL PT 10.5 (10.0-12.5) sec INR 0.9 (<1.2) APTT 18.1 L (22.0-30.0) sec VBG pH (7.31-7.41) VBG pCO2 (37-51) mmHg VBG HCO3 (24-28) mmol/L Sodium (137-145) mmol/L Potassium (3.5-5.1) mmol/L Chloride (98-107) mmol/L Carbon Dioxide (22-30) mmol/L Anion Gap mmol/L BUN (9-20) mg/dL Creatinine (0.66-1.25) mg/dL Est GFR (CKD-EPI)AfAm (>60 ml/min/1.73 sqM) Est GFR (CKD-EPI)NonAf (>60 ml/min/1.73 sqM) Glucose (74-99) mg/dL POC Glucose (mg/dL) 266 H (70-110) mg/dL POC Glu Pony Ride Operator ID Romy Minaya Lactic Ac Sepsis Rflx Plasma Lactic Acid Abdias (0.7-2.0) mmol/L Calcium (8.4-10.2) mg/dL Total Bilirubin (0.2-1.3) mg/dL AST (17-59) U/L ALT (4-49) U/L Alkaline Phosphatase (38-126) U/L Troponin I (0.000-0.034) ng/mL Total Protein (6.3-8.2) g/dL Albumin (3.5-5.0) g/dL TSH (0.465-4.680) mIU/L Urine Color Urine Appearance (Clear) Urine pH (5.0-8.0) Ur Specific Diagonal (1.001-1.035) Urine Protein (Negative) Urine Glucose (UA) (Negative) Urine Ketones (Negative) Urine Blood (Negative) Urine Nitrite (Negative) Urine Bilirubin (Negative) Urine Urobilinogen (<2.0) mg/dL Ur Leukocyte Esterase (Negative) Urine RBC (0-5) /hpf Urine WBC (0-5) /hpf Ur Squamous Epith Cells (0-4) /hpf Hyaline Casts (0-2) /lpf Urine Mucus (None) /hpf Salicylates mg/dL Urine Opiates Screen (NotDetected) Ur Oxycodone Screen (NotDetected) Urine Methadone Screen (NotDetected) Acetaminophen ug/mL Ur Barbiturates Screen (NotDetected) U Tricyclic Antidepress (NotDetected) Ur Phencyclidine Scrn (NotDetected) Ur Amphetamines Screen (NotDetected) U Methamphetamines Scrn (NotDetected) U Benzodiazepines Scrn (NotDetected) Urine Cocaine Screen (NotDetected) U Marijuana (THC) Screen (NotDetected) Serum Alcohol mg/dL 12/10/23 12/10/23 12/10/23 Range/Units 01:39 01:39 01:39 WBC (3.8-10.6) k/uL RBC (4.30-5.90) m/uL Hgb (13.0-17.5) gm/dL Hct (39.0-53.0) % MCV (80.0-100.0) fL MCH (25.0-35.0) pg MCHC (31.0-37.0) g/dL RDW (11.5-15.5) % Plt Count (150-450) k/uL MPV Neutrophils % % Lymphocytes % % Monocytes % % Eosinophils % % Basophils % % Neutrophils # (1.3-7.7) k/uL Lymphocytes # (1.0-4.8) k/uL Monocytes # (0-1.0) k/uL Eosinophils # (0-0.7) k/uL Basophils # (0-0.2) k/uL PT (10.0-12.5) sec INR (<1.2) APTT (22.0-30.0) sec VBG pH (7.31-7.41) VBG pCO2 (37-51) mmHg VBG HCO3 (24-28) mmol/L Sodium 131 L (137-145) mmol/L Potassium 3.5 (3.5-5.1) mmol/L Chloride 97 L (98-107) mmol/L Carbon Dioxide <5 L* (22-30) mmol/L Anion Gap mmol/L BUN 11 (9-20) mg/dL Creatinine 0.80 (0.66-1.25) mg/dL Est GFR (CKD-EPI)AfAm >90 (>60 ml/min/1.73 sqM) Est GFR (CKD-EPI)NonAf >90 (>60 ml/min/1.73 sqM) Glucose 295 H (74-99) mg/dL POC Glucose (mg/dL) (70-110) mg/dL POC Glu Pony Ride Operator ID Lactic Ac Sepsis Rflx Plasma Lactic Acid Abdias 16.1 H* (0.7-2.0) mmol/L Calcium 8.1 L (8.4-10.2) mg/dL Total Bilirubin 0.6 (0.2-1.3) mg/dL AST 31 (17-59) U/L ALT 39 (4-49) U/L Alkaline Phosphatase 80 (38-126) U/L Troponin I 0.017 (0.000-0.034) ng/mL Total Protein 6.8 (6.3-8.2) g/dL Albumin 4.4 (3.5-5.0) g/dL TSH (0.465-4.680) mIU/L Urine Color Urine Appearance (Clear) Urine pH (5.0-8.0) Ur Specific Diagonal (1.001-1.035) Urine Protein (Negative) Urine Glucose (UA) (Negative) Urine Ketones (Negative) Urine Blood (Negative) Urine Nitrite (Negative) Urine Bilirubin (Negative) Urine Urobilinogen (<2.0) mg/dL Ur Leukocyte Esterase (Negative) Urine RBC (0-5) /hpf Urine WBC (0-5) /hpf Ur Squamous Epith Cells (0-4) /hpf Hyaline Casts (0-2) /lpf Urine Mucus (None) /hpf Salicylates mg/dL Urine Opiates Screen (NotDetected) Ur Oxycodone Screen (NotDetected) Urine Methadone Screen (NotDetected) Acetaminophen ug/mL Ur Barbiturates Screen (NotDetected) U Tricyclic Antidepress (NotDetected) Ur Phencyclidine Scrn (NotDetected) Ur Amphetamines Screen (NotDetected) U Methamphetamines Scrn (NotDetected) U Benzodiazepines Scrn (NotDetected) Urine Cocaine Screen (NotDetected) U Marijuana (THC) Screen (NotDetected) Serum Alcohol <10 mg/dL 12/10/23 12/10/23 12/10/23 Range/Units 01:39 02:23 03:15 WBC (3.8-10.6) k/uL RBC (4.30-5.90) m/uL Hgb (13.0-17.5) gm/dL Hct (39.0-53.0) % MCV (80.0-100.0) fL MCH (25.0-35.0) pg MCHC (31.0-37.0) g/dL RDW (11.5-15.5) % Plt Count (150-450) k/uL MPV Neutrophils % % Lymphocytes % % Monocytes % % Eosinophils % % Basophils % % Neutrophils # (1.3-7.7) k/uL Lymphocytes # (1.0-4.8) k/uL Monocytes # (0-1.0) k/uL Eosinophils # (0-0.7) k/uL Basophils # (0-0.2) k/uL PT (10.0-12.5) sec INR (<1.2) APTT (22.0-30.0) sec VBG pH (7.31-7.41) VBG pCO2 (37-51) mmHg VBG HCO3 (24-28) mmol/L Sodium (137-145) mmol/L Potassium (3.5-5.1) mmol/L Chloride (98-107) mmol/L Carbon Dioxide (22-30) mmol/L Anion Gap mmol/L BUN (9-20) mg/dL Creatinine (0.66-1.25) mg/dL Est GFR (CKD-EPI)AfAm (>60 ml/min/1.73 sqM) Est GFR (CKD-EPI)NonAf (>60 ml/min/1.73 sqM) Glucose (74-99) mg/dL POC Glucose (mg/dL) (70-110) mg/dL POC Glu Pony Ride Operator ID Lactic Ac Sepsis Rflx Y Plasma Lactic Acid Abdias (0.7-2.0) mmol/L Calcium (8.4-10.2) mg/dL Total Bilirubin (0.2-1.3) mg/dL AST (17-59) U/L ALT (4-49) U/L Alkaline Phosphatase (38-126) U/L Troponin I (0.000-0.034) ng/mL Total Protein (6.3-8.2) g/dL Albumin (3.5-5.0) g/dL TSH 2.280 (0.465-4.680) mIU/L Urine Color Colorless Urine Appearance Clear (Clear) Urine pH 5.0 (5.0-8.0) Ur Specific Diagonal 1.009 (1.001-1.035) Urine Protein Trace H (Negative) Urine Glucose (UA) 4+ H (Negative) Urine Ketones 1+ H (Negative) Urine Blood Small H (Negative) Urine Nitrite Negative (Negative) Urine Bilirubin Negative (Negative) Urine Urobilinogen <2.0 (<2.0) mg/dL Ur Leukocyte Esterase Negative (Negative) Urine RBC 5 (0-5) /hpf Urine WBC 3 (0-5) /hpf Ur Squamous Epith Cells <1 (0-4) /hpf Hyaline Casts 9 H (0-2) /lpf Urine Mucus Rare H (None) /hpf Salicylates <1.0 mg/dL Urine Opiates Screen Not Detected (NotDetected) Ur Oxycodone Screen Not Detected (NotDetected) Urine Methadone Screen Not Detected (NotDetected) Acetaminophen <10.0 ug/mL Ur Barbiturates Screen Not Detected (NotDetected) U Tricyclic Antidepress Not Detected (NotDetected) Ur Phencyclidine Scrn Not Detected (NotDetected) Ur Amphetamines Screen Not Detected (NotDetected) U Methamphetamines Scrn Not Detected (NotDetected) U Benzodiazepines Scrn Not Detected (NotDetected) Urine Cocaine Screen Not Detected (NotDetected) U Marijuana (THC) Screen Detected H (NotDetected) Serum Alcohol mg/dL 12/10/23 Range/Units 03:23 WBC (3.8-10.6) k/uL RBC (4.30-5.90) m/uL Hgb (13.0-17.5) gm/dL Hct (39.0-53.0) % MCV (80.0-100.0) fL MCH (25.0-35.0) pg MCHC (31.0-37.0) g/dL RDW (11.5-15.5) % Plt Count (150-450) k/uL MPV Neutrophils % % Lymphocytes % % Monocytes % % Eosinophils % % Basophils % % Neutrophils # (1.3-7.7) k/uL Lymphocytes # (1.0-4.8) k/uL Monocytes # (0-1.0) k/uL Eosinophils # (0-0.7) k/uL Basophils # (0-0.2) k/uL PT (10.0-12.5) sec INR (<1.2) APTT (22.0-30.0) sec VBG pH 7.18 L* (7.31-7.41) VBG pCO2 49 (37-51) mmHg VBG HCO3 18 L (24-28) mmol/L Sodium (137-145) mmol/L Potassium (3.5-5.1) mmol/L Chloride (98-107) mmol/L Carbon Dioxide (22-30) mmol/L Anion Gap mmol/L BUN (9-20) mg/dL Creatinine (0.66-1.25) mg/dL Est GFR (CKD-EPI)AfAm (>60 ml/min/1.73 sqM) Est GFR (CKD-EPI)NonAf (>60 ml/min/1.73 sqM) Glucose (74-99) mg/dL POC Glucose (mg/dL) (70-110) mg/dL POC Glu Pony Ride Operator ID Lactic Ac Sepsis Rflx Plasma Lactic Acid Abdias (0.7-2.0) mmol/L Calcium (8.4-10.2) mg/dL Total Bilirubin (0.2-1.3) mg/dL AST (17-59) U/L ALT (4-49) U/L Alkaline Phosphatase (38-126) U/L Troponin I (0.000-0.034) ng/mL Total Protein (6.3-8.2) g/dL Albumin (3.5-5.0) g/dL TSH (0.465-4.680) mIU/L Urine Color Urine Appearance (Clear) Urine pH (5.0-8.0) Ur Specific Diagonal (1.001-1.035) Urine Protein (Negative) Urine Glucose (UA) (Negative) Urine Ketones (Negative) Urine Blood (Negative) Urine Nitrite (Negative) Urine Bilirubin (Negative) Urine Urobilinogen (<2.0) mg/dL Ur Leukocyte Esterase (Negative) Urine RBC (0-5) /hpf Urine WBC (0-5) /hpf Ur Squamous Epith Cells (0-4) /hpf Hyaline Casts (0-2) /lpf Urine Mucus (None) /hpf Salicylates mg/dL Urine Opiates Screen (NotDetected) Ur Oxycodone Screen (NotDetected) Urine Methadone Screen (NotDetected) Acetaminophen ug/mL Ur Barbiturates Screen (NotDetected) U Tricyclic Antidepress (NotDetected) Ur Phencyclidine Scrn (NotDetected) Ur Amphetamines Screen (NotDetected) U Methamphetamines Scrn (NotDetected) U Benzodiazepines Scrn (NotDetected) Urine Cocaine Screen (NotDetected) U Marijuana (THC) Screen (NotDetected) Serum Alcohol mg/dL Disposition Clinical Impression: New onset seizure, Atrial fibrillation with RVR, Lactic acid acidosis Disposition: ADMITTED IP TO THIS HOSP Condition: Serious Is patient prescribed a controlled substance at d/c from ED?: No Time of Disposition: 05:30 Decision to Admit Reason: Admit from EC Decision Date: 12/10/23 Decision Time: 05:30
[2023-12-10 03:38] LABS: Appearance,Urine Clear (Clear); Bilirubin,Urine Negative (Negative); Blood,Urine Small (Negative); Color,Urine Colorless; Glucose,Urine (UA) 4+ (Negative); Hyaline Casts,Urine 9 /lpf (0-2); Ketones,Urine 1+ (Negative); Leukocyte Esterase,Urine Negative (Negative); Mucus,Urine Rare /hpf; Nitrite,Urine Negative (Negative); Protein,Urine Trace (Negative); RBC,Urine 5 /hpf (0-5); Specific Gravity,Urine 1.009 (1.001-1.035); Squamous Epithelial Cell,Urine <1 /hpf (0-4); Urobilinogen,Urine <2.0 mg/dL (<2.0); WBC,Urine 3 /hpf (0-5)
[2023-12-10 03:45] LABS: VBG PH 7.18 (7.31-7.41)
[2023-12-10] MEDS: SODIUM CHLORIDE 0.9% 2,000 ML IV STA (03:49)
[2023-12-10 03:55] LABS: Amphetamine Screen,Urine Not Detected (NotDetected); Barbiturate Screen,Urine Not Detected (NotDetected); Benzodiazepines Screen,Urine Not Detected (NotDetected); Cocaine Screen,Urine Not Detected (NotDetected); Methadone Screen, Urine Not Detected (NotDetected); Opiate Screen,Urine Not Detected (NotDetected); Oxycodone Screen, Urine Not Detected (NotDetected); Phencyclidine Screen,Urine Not Detected (NotDetected); Tricyclic Antidepressant,Urine Not Detected (NotDetected); Urn Cannabinoid Scrn Detected (NotDetected)
[2023-12-10] MEDS: METOPROLOL TARTRATE 5 MG/5 ML VIAL IVP SCH (04:27)
--- NOTE | 2023-12-10 04:32 | XR ---
EXAM: XR Chest, 1 View CLINICAL HISTORY: ITS.REASON XR Reason: altered mental status TECHNIQUE: Frontal view of the chest. COMPARISON: No relevant prior studies available. IMPRESSION: 1. No acute cardiopulmonary abnormality.
--- NOTE | 2023-12-10 04:49 | CT ---
EXAM: CT Head Without Intravenous Contrast CLINICAL HISTORY: ITS.REASON CT Reason: ams TECHNIQUE: Axial computed tomography images of the head/brain without intravenous contrast. This CT exam was performed using one or more of the following dose reduction techniques: automated exposure control, adjustment of the mA and/or kV according to patient size, and/or use of iterative reconstruction technique. COMPARISON: No relevant prior studies available. FINDINGS: Brain: Remote ischemic injury of the left capsule. No hemorrhage. No significant white matter disease. No edema. Ventricles: Mild ventricular megaly. Bones/joints: Unremarkable. No acute fracture. Soft tissues: Unremarkable. Sinuses: Unremarkable as visualized. No acute sinusitis. Mastoid air cells: Unremarkable as visualized. No mastoid effusion. IMPRESSION: No evidence of acute intracranial pathology. EXAM: CT Cervical Spine Without Intravenous Contrast CLINICAL HISTORY: ITS.REASON CT Reason: ams TECHNIQUE: Axial computed tomography images of the cervical spine without intravenous contrast. This CT exam was performed using one or more of the following dose reduction techniques: automated exposure control, adjustment of the mA and/or kV according to patient size, and/or use of iterative reconstruction technique. COMPARISON: No relevant prior studies available. FINDINGS: Vertebrae: Unremarkable. No acute fracture. Discs/spinal canal/neural foramina: No acute findings. There is a critical spinal canal stenosis at C3-4 and C5-6. Soft tissues: Unremarkable. IMPRESSION: No evidence of acute cervical spine pathology. Critical spinal canal stenosis at C3-4 and C5-6. Recommend MRI of the cervical spine to evaluate for myelopathy.
[2023-12-10] MEDS ORDERED: NALOXONE 0.4 MG/ML 1 ML VIAL IV PRN (05:31)
[2023-12-10] MEDS ORDERED: ONDANSETRON 4 MG/2 ML VIAL IVP PRN (05:31)
--- NOTE | 2023-12-10 05:51 | P.HPIM ---
History of Present Illness H&P Date: 12/10/23 Patient is a 63-year-old male with a PMH of A-fib not on anticoagulation, carotid artery disease status post stenting, hypertension, and hyperlipidemia who was brought to the emergency room via EMS after a witnessed seizure at home. The history is obtained by the patient's long-term girlfriend at the bedside who reports that the patient was doing well until this evening when he complained of feeling somewhat nauseous and not quite like himself. When he reportedly came back into bed, he proceeded to have a tonic-clonic seizure lasting 3 to 4 minutes during which time he was foaming at the mouth. The patient's girlfriend activated EMS who upon arrival found the patient to be in a postictal state, confused and agitated. Upon arrival in the ED, the patient was reportedly very combative and had to be sedated via Versed and Ativan IV push. No meaningful history could be obtained from the patient is that he was continuing to be altered and combative. The patient's partner also report that he has a prior history of alcohol abuse but has been sober for 9 years. Head/cervical spine CT in the emergency room revealed no acute abnormalities aside from cervical spine stenosis at C3-4 and C5-6 with MRI C-spine recommended. EKG revealed A-fib at 131 bpm with findings consistent with LVH as reviewed by me. Chest x-ray was unremarkable. Laboratory evaluation was remarkable for leukocytosis of 14.1, VBG pH 7.18, sodium 131, chloride 97, CO2 less than 5, lactic acid 16.1, with urine toxicology positive for marijuana. ED documentation reviewed and case discussed with ED provider. Review of systems: Unable to obtain, patient agitated and confused Physical examination: Vital signs reviewed General: non toxic, no distress, appears at stated age, normal weight Derm: no unusual rashes/lesions, warm Head: atraumatic, normocephalic, symmetric Eyes: EOMI, no lid lag, anicteric sclera, pupils equal round reactive to light ENT: Nose and ears atraumatic Neck: No cervical lymphadenopathy, trachea midline, supple Mouth: no lip lesion, mucus membranes moist Cardiovascular: S1S2 reg, no murmur, positive dorsalis pedis pulse bilateral, no edema Lungs: CTA bilateral, no rhonchi, no rales, no accessory muscle use Abdominal: soft, nontender to palpation, no guarding Ext: muscle strength 5 out of 5 in all 4 extremities grossly, no gross muscle atrophy, no contractures, Neuro: Patient in restraints, oriented only to self but moving all extremities with no obvious focal deficits noted Psych: Oriented only to self, lethargic Assessment: Seizure, new onset Altered mental status, likely due to postictal state Lactic acidosis Anion gap acidosis Leukocytosis, likely due to acute stressor with no signs of active infection at this time Cervical canal stenosis Chronic conditions: Hypertension, hyperlipidemia, A-fib Imaging: Head/cervical spine CT in the emergency room revealed no acute abnormalities aside from cervical spine stenosis at C3-4 and C5-6 with MRI C-spine recommende d. EKG revealed A-fib at 131 bpm with findings consistent with LVH as reviewed by me. Chest x-ray was unremarkable. Data Review: Laboratory evaluation was remarkable for leukocytosis of 14.1, VBG pH 7.18, sodium 131, chloride 97, CO2 less than 5, lactic acid 16.1, with urine toxicology positive for marijuana. Plan: Neurology consulted Neurochecks and fall precautions Monitor lactic acid levels for resolution Consider cervical spine MRI Continue with home medications once reconciled DVT prophylaxis: Lovenox subcu The patient is admitted with an anticipated less than 2 midnight stay for evaluation of seizure CODE STATUS: Full Code Discussed with: Girlfriend Anticipated discharge place: Home Past Medical History Past Medical History: Atrial Fibrillation, Hyperlipidemia, Hypertension Additional Past Medical History / Comment(s): borderline diabetic History of Any Multi-Drug Resistant Organisms: MRSA Date of last positivie culture/infection: 02/09/20 MDRO Source:: HAND MRSA Past Surgical History: Heart Catheterization, Heart Catheterization With Stent, Orthopedic Surgery Additional Past Surgical History / Comment(s): Carotid stent right side 5 years ago Past Anesthesia/Blood Transfusion Reactions: No Reported Reaction Past Psychological History: No Psychological Hx Reported Smoking Status: Never smoker Past Alcohol Use History: None Reported Past Drug Use History: Marijuana - Past Family History Mother Family Medical History: CVA/TIA Additional Family Medical History / Comment(s): of stroke Father Family Medical History: Coronary Artery Disease (CAD) Additional Family Medical History / Comment(s): of heart attack Medications and Allergies Home Medications Medication Instructions Recorded Confirmed Type Atorvastatin [Lipitor] 20 mg PO HS 05/05/19 02/09/20 History Fenofibric Acid (Choline) 45 mg PO HS 05/05/19 02/09/20 History [Trilipix] atenoloL [Tenormin] 50 mg PO DAILY 05/05/19 02/09/20 History lisinopriL [Zestril] 15 mg PO HS 05/05/19 02/09/20 History Aspirin EC [Ecotrin Low Dose] 81 mg PO DAILY #1 tablet. 05/06/19 02/09/20 Rx Cephalexin [Keflex] 500 mg PO Q6HR 10 Days #40 cap 02/09/20 Rx Omeprazole [PriLOSEC] 40 mg PO DAILY 02/09/20 02/09/20 History Venlafaxine HCl [Effexor XR] 150 mg PO DAILY 02/09/20 02/09/20 History Allergies Allergy/AdvReac Type Severity Reaction Status Date / Time naproxen [From Naprosyn] Allergy Rash/Hives Verified 09/25/22 15:34 Physical Exam Vitals: Vital Signs Temp Pulse Resp BP Pulse Ox 12/10/23 01:27 98.3 F 124 H 16 170/98 93 L Intake and Output 12/09/23 12/09/23 12/10/23 14:59 22:59 06:59 Other: Weight 58.967 kg Results CBC & Chem 7: 12/10/23 01:39 12/10/23 01:39 Labs: Abnormal Lab Results - Last 24 Hours (Table) 12/10/23 12/10/23 12/10/23 Range/Units 01:25 01:39 01:39 WBC 14.1 H (3.8-10.6) k/uL MCV 100.1 H (80.0-100.0) fL Neutrophils # 11.1 H (1.3-7.7) k/uL APTT 18.1 L (22.0-30.0) sec VBG pH (7.31-7.41) VBG HCO3 (24-28) mmol/L Sodium (137-145) mmol/L Chloride (98-107) mmol/L Carbon Dioxide (22-30) mmol/L Glucose (74-99) mg/dL POC Glucose (mg/dL) 266 H (70-110) mg/dL Plasma Lactic Acid Abdias (0.7-2.0) mmol/L Calcium (8.4-10.2) mg/dL Urine Protein (Negative) Urine Glucose (UA) (Negative) Urine Ketones (Negative) Urine Blood (Negative) Hyaline Casts (0-2) /lpf Urine Mucus (None) /hpf U Marijuana (THC) Screen (NotDetected) 12/10/23 12/10/23 12/10/23 Range/Units 01:39 01:39 03:15 WBC (3.8-10.6) k/uL MCV (80.0-100.0) fL Neutrophils # (1.3-7.7) k/uL APTT (22.0-30.0) sec VBG pH (7.31-7.41) VBG HCO3 (24-28) mmol/L Sodium 131 L (137-145) mmol/L Chloride 97 L (98-107) mmol/L Carbon Dioxide <5 L* (22-30) mmol/L Glucose 295 H (74-99) mg/dL POC Glucose (mg/dL) (70-110) mg/dL Plasma Lactic Acid Abdias 16.1 H* (0.7-2.0) mmol/L Calcium 8.1 L (8.4-10.2) mg/dL Urine Protein Trace H (Negative) Urine Glucose (UA) 4+ H (Negative) Urine Ketones 1+ H (Negative) Urine Blood Small H (Negative) Hyaline Casts 9 H (0-2) /lpf Urine Mucus Rare H (None) /hpf U Marijuana (THC) Screen Detected H (NotDetected) 12/10/23 Range/Units 03:23 WBC (3.8-10.6) k/uL MCV (80.0-100.0) fL Neutrophils # (1.3-7.7) k/uL APTT (22.0-30.0) sec VBG pH 7.18 L* (7.31-7.41) VBG HCO3 18 L (24-28) mmol/L Sodium (137-145) mmol/L Chloride (98-107) mmol/L Carbon Dioxide (22-30) mmol/L Glucose (74-99) mg/dL POC Glucose (mg/dL) (70-110) mg/dL Plasma Lactic Acid Abdias (0.7-2.0) mmol/L Calcium (8.4-10.2) mg/dL Urine Protein (Negative) Urine Glucose (UA) (Negative) Urine Ketones (Negative) Urine Blood (Negative) Hyaline Casts (0-2) /lpf Urine Mucus (None) /hpf U Marijuana (THC) Screen (NotDetected)
[2023-12-10] MEDS: DILTIAZEM 125 MG in SODIUM CHLORIDE 0.9% 100 ML IV SCH (06:13)
[2023-12-10] MEDS: DILTIAZEM DRIP BOLUS FROM BAG 1 MG SOLN IV ONE (06:13)
[2023-12-10] MEDS: SODIUM BICARB 8.4% 50 ML SYR (1 MEQ/ML) IV STA (08:16)
[2023-12-10] MEDS: ENOXAPARIN 40 MG/0.4 ML SYRINGE SQ SCH (08:17)
[2023-12-10] MEDS: ASPIRIN 81 MG PO STA (10:47)
[2023-12-10] MEDS: HEPARIN SODIUM 1,000 UN/ML (10ML VL) IV ONE (10:50)
[2023-12-10] MEDS: HEPARIN SOD,PORK IN 0.45% NACL 25,000 UNIT in 0.45% NACL 1 250ML.BAG IV SCH (10:51)
[2023-12-10 11:48] LABS: Basophils % (A) 0 %; Eosinophils # (A) 0.1 k/uL (0-0.7); Eosinophils % (A) 0 %; HGB 14.3 gm/dL (13.0-17.5); Lymphocytes # (A) 1.3 k/uL (1.0-4.8); Lymphocytes % (A) 7 %; MCH 30.9 pg (25.0-35.0); MCHC 32.4 g/dL (31.0-37.0); MCV 95.4 fL (80.0-100.0); Mean Platelet Volume 8.4; Monocytes # (A) 0.8 k/uL (0-1.0); Monocytes % (A) 5 %; Neutrophils # (A) 15.6 k/uL (1.3-7.7); Neutrophils % (A) 87 %; Platelet Count 183 k/uL (150-450); RBC 4.61 m/uL (4.30-5.90); RDW 12.8 % (11.5-15.5)
[2023-12-10 11:57] LABS: Prothrombin Time 11.3 sec (10.0-12.5)
[2023-12-10 12:03] LABS: ALT 25 U/L (4-49); AST 75 U/L (17-59); African American GFR (CKD) >90 (>60 ml/min/1.73 sqM); Albumin 3.8 g/dL (3.5-5.0); Alkaline Phosphatase 70 U/L (38-126); Anion Gap 8 mmol/L; Blood Urea Nitrogen 11 mg/dL (9-20); Calcium 8.7 mg/dL (8.4-10.2); Carbon Dioxide 24 mmol/L (22-30); Chloride 104 mmol/L (98-107); Glucose 108 mg/dL (74-99); Non-African American GFR(CKD) >90 (>60 ml/min/1.73 sqM); Potassium 3.5 mmol/L (3.5-5.1); Sodium 136 mmol/L (137-145); Total Bilirubin 0.7 mg/dL (0.2-1.3); Total Protein 6.5 g/dL (6.3-8.2)
--- NOTE | 2023-12-10 12:29 | P.CNNES ---
History of Present Illness Consult date: 12/10/23 Requesting physician: Rena Abdalla Reason for Consult: New onset seizure History of Present Illness: Patient is a 63-year-old male came to the hospital by ambulance early this morning at 1:19 AM for new onset seizure. Patient's was also present, who provided with a history. Patient's mentioned that patient was feeling tired all day yesterday and slept most of the time. He took 2 hours nap during the day, and then slept again from 4 to 6 PM. He got up at 7 PM and felt like will throw up. He has not eaten all day since breakfast. From 7 PM until about 2 AM, he woke up a few times to pass urine. At around 1:30 AM to 2 AM, patient's heard him throwing up in the bathroom. She checked on him in the bathroom and he was bumping into the hernandez, but shuffling gait. She laid him in the bed. Shortly after while he was in the bed, patient had a seizure, in which his left arm clenched up by the cheek and the right arm straightened up, his both legs were locked. He was sweating, foaming out of the mouth, mumbling. The seizure-like activity lasted for about 2 minutes. There was no tongue bite or loss of control of urine. Subsequently he became postictal, very confused, agitated, mumbling incoherent words. He called his with other names like "joseph, Spring Amado". She called 911. As per EMS flowsheet, when they arrived, found patient laying in his bed. Patient's states he was not feeling well today so he did not eat much. Patient's states that he got up to go to the bathroom and began vomiting. Patient got back into the bed and she states that he "stiffened up to the point where I could not even move his legs or arms". Patient remained in that state for approximately 3 minutes. Patient began drooling and "foaming at the mouth" according to the . When EMS arrived patient was unresponsive and withdraws to pain. Patient was not speaking and extremely agitated rolling [id number] in bed. Patient's mentioned that he has no history of seizures and patient does not drink alcohol in 9 years. Patient was vomiting multiple times. Patient was postictal, being physically violent by punching gargling, scratching and kicking. Patient randomly screams "mommy", or "daddy" but nothing else coherent was said. Patient's vitals at the scene was blood pressure not able to check because patient not cooperative. Pulse was 145 respiration 24 saturation 94%, EKG shows atrial fibrillation. Temperature 98.0 axillary. GCS was 9. Blood glucose 176. Patient was given oxygen, Versed 5 mg IM, Zofran. Vital signs arrival blood pressure 170/98, subsequent 170/88, pulse rate 124 temperature 98.3. Blood test shows sodium 131 potassium 3.5, renal functions and hepatic panel is normal. Lactate was 16.1. Troponin negative TSH normal. UA negative. Urine drug screen positive for marijuana. Blood alcohol level negative. CT head showed no acute intracranial process. I personally reviewed CT head agree with the findings. CT of the cervical spine showed no evidence of acute cervical spine pathology. Critical spinal canal stenosis at C3-4 and C5- 6. Recommend MRI of the cervical spine to evaluate for myelopathy. EKG showed atrial flutter/tachycardia. Home medications include Lipitor 20 mg, Effexor 150 mg daily, Zestoretic, Plavix 75 mg, aspirin 81 mg, Prilosec and amlodipine. Patient denies any family history of epilepsy. No personal history of concussions, or febrile seizures in childhood. Patient's mom had a stroke. Patient has history of smoking 1 pack/day for 10 years, quit 15 years ago. He has stopped drinking alcohol about 7 or 8 years ago. He used to be a heavy drinker before. He smokes marijuana occasionally. Review of Systems Constitutional: Reports sweats, Denies chills, Denies fever Eyes: bilateral blurred vision (Glasses), denies diplopia, denies pain, denies loss of vision Ears: bilateral: decreased hearing (Played in the [employer] 4 years.), deny: earache Ears, nose, mouth and throat: Denies headache, Denies sore throat, Denies vertigo Cardiovascular: Reports lightheadedness (Little bit), Denies chest pain, Denies shortness of breath Respiratory: Denies cough, Denies excessive sputum Gastrointestinal: Reports diarrhea, Reports nausea, Reports vomiting (Only yesterday, not today), Denies abdominal pain Genitourinary: Reports urinary frequency, Denies incontinence, Denies urinary he sitancy Musculoskeletal: Denies gait dysfunction, Denies low back pain, Denies muscle weakness, Denies neck pain Integumentary: Denies pruritus, Denies rash Neurological: Reports as per HPI Psychiatric: Reports anxiety, Reports depression Hematologic/Lymphatic: Denies easy bleeding, Denies easy bruising Past Medical History Past Medical History: Atrial Fibrillation, Hyperlipidemia, Hypertension Additional Past Medical History / Comment(s): borderline diabetic History of Any Multi-Drug Resistant Organisms: MRSA Date of last positivie culture/infection: 02/09/20 MDRO Source:: HAND MRSA Past Surgical History: Heart Catheterization, Heart Catheterization With Stent, Orthopedic Surgery Additional Past Surgical History / Comment(s): Carotid stent right side 5 years ago Past Anesthesia/Blood Transfusion Reactions: No Reported Reaction Past Psychological History: No Psychological Hx Reported Smoking Status: Never smoker Past Alcohol Use History: None Reported Past Drug Use History: Marijuana - Past Family History Mother Family Medical History: CVA/TIA Additional Family Medical History / Comment(s): of stroke Father Family Medical History: Coronary Artery Disease (CAD) Additional Family Medical History / Comment(s): of heart attack Medications and Allergies Home Medications Medication Instructions Recorded Confirmed Type Atorvastatin [Lipitor] 20 mg PO HS 05/05/19 12/10/23 History Venlafaxine HCl [Effexor XR] 150 mg PO DAILY 02/09/20 12/10/23 History Aspirin 81 mg PO DAILY 12/10/23 12/10/23 History Clopidogrel [Plavix] 75 mg PO DAILY 12/10/23 12/10/23 History Lisinopril-Hctz 20-25 mg 1 tab PO DAILY 12/10/23 12/10/23 History [Zestoretic 20-25] Omeprazole Magnesium [PriLOSEC OTC] 20 mg PO DAILY 12/10/23 12/10/23 History amLODIPine [Norvasc] 10 mg PO DAILY 12/10/23 12/10/23 History Allergies Allergy/AdvReac Type Severity Reaction Status Date / Time naproxen [From Naprosyn] Allergy Rash/Hives Verified 12/10/23 07:48 Physical Examination - Vital Signs Vital Signs: Vital Signs Temp Pulse Resp BP Pulse Ox 12/10/23 07:58 130 H 18 151/95 96 04/29/24 05:30 122 H 24 119/66 95 12/10/23 04:30 142 H 21 108/71 95 12/10/23 03:30 142 H 24 135/84 96 12/10/23 02:37 135 H 26 H 170/97 96 12/10/23 01:37 141 H 27 H 170/88 92 L 12/10/23 01:27 98.3 F 124 H 16 170/98 93 L Intake and Output 12/09/23 12/10/23 12/10/23 22:59 06:59 14:59 Other: Weight 58.967 kg Patient is an elderly male, who is alert and awake, but slightly encephalopathic. Patient is alert awake oriented to time place and person. He states it is December 2023 and that he is in [facility] imported on [place] and knows name of the current president. Speech and language functions are normal. Speech sometimes appears slurred, mumbling, but no obvious aphasia or dysarthria. Patient can name and repeat very well. Attention, concentration is slightly decreased and fund of knowledge is adequate. On cranial nerve examination, pupils are equal, round and reacting to light, visual irwin are full on confrontation, with no neglect on double simultaneous stimulation. Extraocular muscles are intact with no nystagmus. Face is symmetr ic, tongue protrudes to the midline. Palatal elevation and sensation normal, hearing is slightly decreased and shoulder shrug normal, facial sensation normal. On muscle strength testing, there is no pronator drift and the strength is normal in arms and legs distally and proximally, except hip flexion which is 5- bilaterally. Deep tendon reflexes are symmetric 1+ in the biceps, 1+ brachioradialis, 2+ at the knees, plantars are upgoing bilaterally. Sensory to touch is equal with no neglect on double simultaneous stimulation. Cerebellar function showed no ataxia for [id number] testing. No dysdiadochokinesia. No ataxia for [id number] testing on either side. Tone and bulk of muscles normal. Gait deferred.. On general examination, there is no carotid bruit or murmur, S1-S2 audible. Chest is clear on consultation. Abdomen is soft nontender. No organomegaly, bowel sounds present. Peripheral pulses are present. No peripheral edema. Patient does have some scabs/bruises. Results - Laboratory Findings CBC and BMP: 12/10/23 11:27 12/10/23 11:27 Abnormal Lab Findings: Abnormal Labs 12/10/23 12/10/23 12/10/23 01:25 01:39 01:39 WBC 14.1 H MCV 100.1 H Neutrophils # 11.1 H APTT 18.1 L VBG pH VBG HCO3 Sodium Chloride Carbon Dioxide Glucose POC Glucose (mg/dL) 266 H Plasma Lactic Acid Abdias Calcium Troponin I Urine Protein Urine Glucose (UA) Urine Ketones Urine Blood Hyaline Casts Urine Mucus U Marijuana (THC) Screen 12/10/23 12/10/23 12/10/23 01:39 01:39 03:15 WBC MCV Neutrophils # APTT VBG pH VBG HCO3 Sodium 131 L Chloride 97 L Carbon Dioxide <5 L* Glucose 295 H POC Glucose (mg/dL) Plasma Lactic Acid Abdias 16.1 H* Calcium 8.1 L Troponin I Urine Protein Trace H Urine Glucose (UA) 4+ H Urine Ketones 1+ H Urine Blood Small H Hyaline Casts 9 H Urine Mucus Rare H U Marijuana (THC) Screen Detected H 12/10/23 12/10/23 03:23 08:13 WBC MCV Neutrophils # APTT VBG pH 7.18 L* VBG HCO3 18 L Sodium Chloride Carbon Dioxide Glucose POC Glucose (mg/dL) Plasma Lactic Acid Abdias Calcium Troponin I 0.255 H* Urine Protein Urine Glucose (UA) Urine Ketones Urine Blood Hyaline Casts Urine Mucus U Marijuana (THC) Screen Assessment and Plan Assessment: * New onset seizure with prolonged postictal state. Exact cause of seizure remains uncertain. * History of atrial fibrillation/flutter, currently not on anticoagulation. * Lactic acidosis, likely due to seizure. * Hyponatremia sodium 131 * Elevated troponin 0.255 * Abnormal CT cervical spine, with reported critical stenosis at C3-4 and C5-6. * Marijuana use * Ex tobacco use Plan: * Patient has presented with new onset seizure of unclear etiology. Patient does have mild hyponatremia but probably would not result in a seizure. Patient has been feeling lightheaded and somnolent whole day before seizure. * MRI of the brain with and without contrast rule out any structural abnormality. * CT of the cervical spine showed critical spinal stenosis at C3-4 and C5-6. We will check MRI of the cervical spine. * EEG was performed today, which is mildly abnormal due to intermittent background slowing, suggestive of mild encephalopathy. No focal, lateralized or epileptiform activity was seen. * Hold off on antiepileptic medication at this time because of normal EEG. * Cardiology consultation for reported possible atrial flutter/fibrillation, currently not on anticoagulation. Patient also has elevated cardiac enzymes. We will defer to cardiology regarding anticoagulation. * Patient takes aspirin and Plavix at home it appears. He does not remember if he takes Plavix, although as per medication bottle, the last 30 days refill was done on 11/04/2023, and only 3 tablets are left in the bottle. He sometimes forgets to taking the medication. * Patient and his informed of [place] state law of no driving unless seizure-free for 6 months, climbing ladders, operating dangerous machinery or unsupervised swimming. * Neurology will follow. Thank you for the consult. Time with Patient: Greater than 30
[2023-12-10 12:38] LABS: Creatine Kinase 3275 U/L (55-170)
[2023-12-10] MEDS: METOPROLOL TARTRATE 25 MG TAB PO SCH (13:24)
[2023-12-10] MEDS: LACTATED RINGERS 1,000 ML IV SCH (13:24)
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
[2023-12-10] MEDS: HEPARIN SODIUM 1,000 UN/ML (10ML VL) IV PRN (17:47)
--- NOTE | 2023-12-10 20:32 | EEG ---
ELECTROENCEPHALOGRAM REPORT PREAMBLE: This is a 63-year-old male with new-onset seizure. The patient was given Ativan, was also given some Versed. EEG FINDINGS: This is a 21-channel digital EEG recorded with video component, utilizing 10/20 international system with referential and bipolar montages. Background consists of moderately well-developed and regulated, predominantly 8-9 hertz alpha activity, low amplitude, seen in posterior head region. Background is posterior dominant and seems to be slightly reactive to eye opening and closing. Intermittent 2 to 3 hertz generalized delta waves were seen sporadically. The patient was somewhat restless and agitated during the study as well. Hyperventilation and photic stimulation were not done. Deeper stages of sleep were not seen. No focal or generalized epileptiform activity was seen. IMPRESSION: Mildly abnormal EEG due to intermittent background slowing, suggestive of mild encephalopathy. No focal, lateralized, or epileptiform activity was seen. MMGAL / EVELINN: [id number] /
[2023-12-10] MEDS: ATORVASTATIN 20 MG TAB PO SCH (21:10)
[2023-12-11] MEDS: ASPIRIN 81 MG PO SCH (08:16)
[2023-12-11] MEDS: APIXABAN 5 MG TAB PO SCH (09:13)
[2023-12-11] MEDS: lisinopriL 10 MG TAB PO SCH (09:14)
[2023-12-11 09:27] LABS: Basophils % (A) 0 %; Eosinophils % (A) 0 %; HCT 41.5 % (39.0-53.0); HGB 13.9 gm/dL (13.0-17.5); Lymphocytes # (A) 1.7 k/uL (1.0-4.8); Lymphocytes % (A) 20 %; MCH 31.6 pg (25.0-35.0); MCHC 33.4 g/dL (31.0-37.0); MCV 94.5 fL (80.0-100.0); Monocytes # (A) 0.6 k/uL (0-1.0); Monocytes % (A) 7 %; Neutrophils # (A) 6.2 k/uL (1.3-7.7); Neutrophils % (A) 72 %; Platelet Count 158 k/uL (150-450); RBC 4.39 m/uL (4.30-5.90); RDW 13.1 % (11.5-15.5); WBC 8.7 k/uL (3.8-10.6)
[2023-12-11 09:32] LABS: INR 1.1 (<1.2); Partial Thromboplastin Time 52.8 sec (22.0-30.0); Prothrombin Time 11.4 sec (10.0-12.5)
[2023-12-11 10:00] LABS: African American GFR (CKD) >90 (>60 ml/min/1.73 sqM); Anion Gap 8 mmol/L; Blood Urea Nitrogen 16 mg/dL (9-20); Calcium 8.4 mg/dL (8.4-10.2); Carbon Dioxide 24 mmol/L (22-30); Chloride 105 mmol/L (98-107); Glucose 102 mg/dL (74-99); Non-African American GFR(CKD) >90 (>60 ml/min/1.73 sqM); Potassium 3.4 mmol/L (3.5-5.1); Sodium 137 mmol/L (137-145)
[2023-12-11 10:11] LABS: Creatine Kinase 2258 U/L (55-170)
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
--- NOTE | 2023-12-11 14:24 | P.PN ---
Subjective Progress Note Date: 12/11/23 Hospital Course: 63-year-old male with history of hypertension, CAD status post stent, A-fib, h ypertension, dyslipidemia presented after witnessed seizure. Head/cervical spine CT in the emergency room revealed no acute abnormalities aside from cervical spine stenosis at C3-4 and C5-6 with MRI C-spine recommended. EKG revealed A- fib at 131 bpm with findings consistent with LVH. Chest x-ray was unremarkable. Laboratory evaluation was remarkable for leukocytosis of 14.1, VBG pH 7.18, sodium 131, chloride 97, CO2 less than 5, lactic acid 16.1, with urine toxicology positive for marijuana. Patient also had elevated troponin, CK elevated at 3000. Started on IV fluids, heparin drip, cardiology consulted. EEG did not show any epileptiform activity. MRI pending. Echocardiogram pending. Patient started on Eliquis. Heparin drip discontinued. Subjective: Patient seen and examined at bedside. No acute events overnight. Pertinent positives and negatives as discussed above, a complete review of systems was performed and all other systems are negative. Vitals Signs Reviewed. General: Nontoxic, no distress, appears at stated age Derm: Warm, dry Head: Atraumatic, normocephalic, symmetric Eyes: EOMI, no lid lag, anicteric sclera Mouth: No lip lesion, mucus membranes moist Cardiovascular: S1S2 reg, no murmur Lungs: CTA bilateral, no rhonchi, no rales, no accessory muscle use Abdominal: Soft, nontender to palpation, no guarding, no appreciable organomegaly Ext: No gross muscle atrophy, no edema, no contractures Neuro: CN II-XI grossly intact, no focal neuro deficits Psych: Alert, oriented, appropriate affect Data Reviewed Today: Pertinent Labs: WBC 8.7, hemoglobin 13.9, potassium 3.4, creatinine 0.73, magnesium 2, CK 2258 Imaging: EKG independently interpreted from last night, shows normal sinus rhythm. Assessment and Plan: Active: New onset seizures Acute rhabdomyolysis Atrial fibrillation with RVR Hypokalemia Elevated troponin likely nonischemic - Discussed management with neurology, pending MRI - Cardiology note reviewed, heparin drip discontinued, started on Eliquis 5 twice daily, continue aspirin 81 mg, Plavix discontinued, started on lisinopril 10 mg, echocardiogram pending - Continue metoprolol 25 twice daily - Potassium 20 mill equivalent given today - Continue on lactated Ringer's 150 cc an hour - Continue to monitor BMP and magnesium Resolved: Leukocytosis Lactic acidosis Metabolic acidosis Chronic: History of CAD status post stent Dyslipidemia Hypertension DVT ppx: Eliquis Code status: Full code Anticipated discharge place: Pending clinical course Anticipated discharge time: Pending clinical course Objective - Vital Signs Vital signs: Vital Signs Temp 98.6 F 12/11/23 14:10 Pulse 85 12/11/23 14:10 Resp 17 12/11/23 14:10 BP 146/71 12/11/23 14:10 Pulse Ox 97 12/11/23 14:10 FiO2 Intake & Output 12/10/23 12/11/23 12/11/23 18:59 06:59 18:59 Intake Total 71.379 52.419 0 Balance 71.379 52.419 0 Intake: Intake, IV Titration 71.379 52.419 0 Amount Diltiazem 125 mg In 22.083 0 Sodium Chloride 0.9% 100 ml @ 5 MG/HR 5 mls/hr IV .Q24H [facility] Rx#:[id number] Heparin Sod,Pork in 0.45% 49.296 52.419 NaCl 25,000 unit In 0.45 % NaCl 1 250ml.bag @ 12 UNITS/KG/HR 7.076 mls/hr IV .Q24H [facility] Rx#: [id number] - Labs CBC & Chem 7: 12/11/23 08:41 12/11/23 08:41 Labs: Abnormal Lab Results - Last 24 Hours (Table) 12/10/23 12/11/23 12/11/23 Range/Units 15:56 00:05 08:41 APTT 42.6 H 40.3 H (22.0-30.0) sec Potassium 3.4 L (3.5-5.1) mmol/L Glucose 102 H (74-99) mg/dL Creatine Kinase 2258 H* (55-170) U/L 12/11/23 Range/Units 08:41 APTT 52.8 H (22.0-30.0) sec Potassium (3.5-5.1) mmol/L Glucose (74-99) mg/dL Creatine Kinase (55-170) U/L Microbiology - Last 24 Hours (Table) 12/10/23 08:28 Blood Culture Gram Stain - Preliminary Blood Blood Culture - Preliminary Molecular ID
[2023-12-11] MEDS: POTASSIUM CHLORIDE ER 20 MEQ TAB.ER PO STA (14:38)
--- NOTE | 2023-12-11 16:46 | P.PN ---
Subjective Progress Note Date: 12/11/23 Patient was seen for follow-up. Patient is doing much better. He walked to the bathroom with no issues. He is noticing some blood in the urine. His speech is back to normal. Patient is still awaiting test results. Objective - Vital Signs Vital signs: Vital Signs Temp 98.8 F 12/11/23 16:08 Pulse 85 12/11/23 16:08 Resp 18 12/11/23 16:08 BP 165/94 12/11/23 16:08 Pulse Ox 94 L 12/11/23 16:08 FiO2 Intake & Output 12/10/23 12/11/23 12/11/23 18:59 06:59 18:59 Intake Total 71.379 52.419 0 Balance 71.379 52.419 0 Intake: Intake, IV Titration 71.379 52.419 0 Amount Diltiazem 125 mg In 22.083 0 Sodium Chloride 0.9% 100 ml @ 5 MG/HR 5 mls/hr IV .Q24H [facility] Rx#:[id number] Heparin Sod,Pork in 0.45% 49.296 52.419 NaCl 25,000 unit In 0.45 % NaCl 1 250ml.bag @ 12 UNITS/KG/HR 7.076 mls/hr IV .Q24H [facility] Rx#: [id number] - Exam Patient's mental status, speech and language functions are normal. Affect is normal. Rest of the examination is nonfocal. - Labs CBC & Chem 7: 12/11/23 08:41 12/11/23 08:41 Labs: Abnormal Lab Results - Last 24 Hours (Table) 12/11/23 12/11/23 12/11/23 Range/Units 00:05 08:41 08:41 APTT 40.3 H 52.8 H (22.0-30.0) sec Potassium 3.4 L (3.5-5.1) mmol/L Glucose 102 H (74-99) mg/dL Creatine Kinase 2258 H* (55-170) U/L Microbiology - Last 24 Hours (Table) 12/10/23 08:28 Blood Culture Gram Stain - Preliminary Blood Blood Culture - Preliminary Molecular ID Assessment and Plan Assessment: * New onset seizure with prolonged postictal state. Exact cause of seizure remains uncertain. * History of atrial fibrillation/flutter, currently not on anticoagulation. * Lactic acidosis, likely due to seizure. * Rhabdomyolysis, likely due to seizure. Most recent CPK 2258. * Hyponatremia sodium 131 * Elevated troponin 0.255 * Abnormal CT cervical spine, with reported critical stenosis at C3-4 and C5-6. * Marijuana use * Ex tobacco use Plan: * Patient has presented with new onset seizure of unclear etiology. Patient does have mild hyponatremia but probably would not result in a seizure. Patient has been feeling lightheaded and somnolent whole day before seizure. * MRI of the brain with and without contrast rule out any structural abnormal ity. * CT of the cervical spine showed critical spinal stenosis at C3-4 and C5-6. We will check MRI of the cervical spine. * 2D echo completed, results pending. * EEG 12/10/2023, which is mildly abnormal due to intermittent background slowing, suggestive of mild encephalopathy. No focal, lateralized or epileptiform activity was seen. * Hold off on antiepileptic medication at this time because of normal EEG. * Cardiology input appreciated. Patient was initially placed on heparin for elevated cardiac enzymes. Now the heparin has been discontinued and patient started on Eliquis 5 mg twice daily. Also on aspirin 81 mg daily. Plavix discontinued. (Prior to arrival patient was on aspirin and Plavix) * Patient and his informed of [place] state law of no driving unless seizure-free for 6 months, climbing ladders, operating dangerous machinery or unsupervised swimming.
[2023-12-11] MEDS: amLODIPine 10 MG TAB PO SCH (21:13)
[2023-12-11] MEDS: ACETAMINOPHEN TAB 325 MG TAB PO PRN (21:13)
--- NOTE | 2023-12-12 06:53 | CA ---
Transthoracic Echo Report Name: Reagan Lloyd Age: 63 Gender: M : 1960 Exam Date: 12/11/2023 10:48 Exam Location: [facility] Ht (in): 66 Wt (lb): 130 Ordering Physician: Xiomara Dixon Attending/Referring Phys: [id number], Zack Db2 Developer Susan Yates RDCS Procedure CPT: Indications: Elevated troponins, AF Cardiac Hx: Technical Quality: Fair Contrast 1: Total Dose (mL): Contrast 2: Total Dose (mL): MEASUREMENTS (Male / Female) Normal Values 2D ECHO LV Diastolic Diameter PLAX 3.6 cm 4.2 - 5.9 / 3.9 - 5.3 cm LV Systolic Diameter PLAX 2.3 cm IVS Diastolic Thickness 1.4 cm 0.6 - 1.0 / 0.6 - 0.9 cm LVPW Diastolic Thickness 1.4 cm 0.6 - 1.0 / 0.6 - 0.9 cm LV Relative Wall Thickness 0.8 RV Internal Dim ED PLAX 3.6 cm LA Volume 54.6 cm??? 18 - 58 / 22 - 52 cm??? LA Volume Index 33.0 cm???/m??? 16 - 28 cm???/m??? M-MODE Aortic Root Diameter MM 3.2 cm LA Systolic Diameter MM 4.5 cm LA Ao Ratio MM 1.4 AV Cusp Separation MM 1.5 cm DOPPLER AV Peak Velocity 148.0 cm/s AV Peak Gradient 8.8 mmHg AV Mean Velocity 89.2 cm/s AV Mean Gradient 3.7 mmHg AV Velocity Time Integral 25.8 cm LVOT Peak Velocity 99.7 cm/s LVOT Peak Gradient 4.0 mmHg LVOT Velocity Time Integral 22.0 cm MV Area PHT 3.9 cm??? Mitral E Point Velocity 86.6 cm/s Mitral A Point Velocity 70.2 cm/s Mitral E to A Ratio 1.2 MV Deceleration Time 192.5 ms MV E' Velocity 6.7 cm/s Mitral E to MV E' Ratio 12.9 TR Peak Velocity 152.1 cm/s TR Peak Gradient 9.3 mmHg Right Ventricular Systolic Press 14.3 mmHg FINDINGS Left Ventricle Mildly increased left ventricular wall thickness. Left ventricular cavity size normal. Normal left ventricular systolic function with no obvious regional wall motion abnormalities. Left ventricular ejection fraction is estimated at 55-60 %. Grade 1 diastolic dysfunction. Right Ventricle Normal right ventricular size and function. Right ventricular systolic pressure within normal limits. Right Atrium Normal right atrial size. Left Atrium Mildly increased left atrial volume. Mitral Valve Structurally normal mitral valve. Mild mitral annular calcification. Mild mitral regurgitation. Aortic Valve Trileaflet aortic valve. No aortic valve stenosis or regurgitation. Tricuspid Valve Structurally normal tricuspid valve. Mild tricuspid regurgitation. Pulmonic Valve Structurally normal pulmonic valve. Pericardium No pericardial effusion. Aorta Normal size aortic root and proximal ascending aorta. CONCLUSIONS Normal LV systolic function with impaired relaxation of the LV Mild mitral regurgitation No evidence of pericardial effusion Normal pulmonary artery systolic pressure Previewed by: Dr. Phil Jessica MD (Electronically Signed) Final Date: 12 Dec 2023 06:52
[2023-12-12] MEDS: POTASSIUM CHLORIDE ER 20 MEQ TAB.ER PO STA (12:21)
[2023-12-12] MEDS: hydroCHLOROthiazide 25 MG TAB PO SCH (12:21)
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
--- NOTE | 2023-12-12 16:44 | P.PN ---
Subjective Progress Note Date: 12/12/23 Hospital Course: 63-year-old male with history of hypertension, CAD status post stent, A-fib, hypertension, dyslipidemia presented after witnessed seizure. Head/cervical spine CT in the emergency room revealed no acute abnormalities aside from cervical spine stenosis at C3-4 and C5-6 with MRI C-spine recommended. EKG revealed A-fib at 131 bpm with findings consistent with LVH. Chest x-ray was unremarkable. Laboratory evaluation was remarkable for leukocytosis of 14.1, VBG pH 7.18, sodium 131, chloride 97, CO2 less than 5, lactic acid 16.1, with urine toxicology positive for marijuana. Patient also had elevated troponin, CK elevated at 3000. Started on IV fluids, heparin drip, cardiology consulted. EEG did not show any epileptiform activity. Echo showed EF55-60% with G1DD. MRI brain and C-spine pending. Patient started on Eliquis and heparin drip discontinued. Repeat BCx are also positive for gram positive cocci in clusters. Patient seen and examined at bedside. No acute events overnight. Vitals Signs Reviewed. General: Nontoxic, no distress, appears at stated age Derm: Warm, dry Head: Atraumatic, normocephalic, symmetric Eyes: EOMI, no lid lag, anicteric sclera Mouth: No lip lesion, mucus membranes moist Cardiovascular: S1S2 reg, no murmur Lungs: CTA bilateral, no rhonchi, no rales, no accessory muscle use Ext: No gross muscle atrophy, no edema, no contractures Neuro: no focal neuro deficits Psych: Alert, oriented, appropriate affect Assessment and Plan: Active: New onset seizures Acute rhabdomyolysis Atrial fibrillation with RVR Hypokalemia Elevated troponin likely nonischemic - Pending MRI brain and c-spine - Cardiology note reviewed, heparin drip discontinued, started on Eliquis 5 twice daily, continue aspirin 81 mg, Plavix discontinued, started on lisinopril 10 mg, add HCTZ 25 mg PO QD - Continue metoprolol 25 twice daily - DC IVF and encourage hydration by mouth - 40 meq PO KCl ordered today - Continue to monitor BMP and magnesium Positive blood culture - x2 - Likely contaminant - Repeat BCx ordered for tomorrow Resolved: Leukocytosis Lactic acidosis Metabolic acidosis Chronic: History of CAD status post stent Dyslipidemia Hypertension DVT ppx: Eliquis Code status: Full code Anticipated discharge place: Pending clinical course Anticipated discharge time: Pending clinical course Objective - Vital Signs Vital signs: Vital Signs Temp 98.8 F 12/12/23 12:20 Pulse 83 12/12/23 12:20 Resp 16 12/12/23 12:20 BP 169/80 12/12/23 12:20 Pulse Ox 98 12/12/23 12:20 FiO2 Intake & Output 12/11/23 12/12/23 12/12/23 18:59 06:59 18:59 Intake Total 0 240 Balance 0 240 Weight 58.967 kg Intake: Intake, IV Titration 0 Amount Diltiazem 125 mg In 0 Sodium Chloride 0.9% 100 ml @ 5 MG/HR 5 mls/hr IV .Q24H [facility] Rx#:[id number] Oral 240 Other: Voiding Method Toilet Toilet # Voids 1 - Labs CBC & Chem 7: 12/11/23 08:41 12/11/23 08:41 Labs: Microbiology - Last 24 Hours (Table) 12/11/23 14:36 Blood Culture Gram Stain - Preliminary Blood 12/10/23 08:28 Blood Culture Gram Stain - Preliminary Blood Blood Culture - Preliminary Coagulase Negative Staph Molecular ID 12/10/23 08:30 Blood Culture - Preliminary Blood
--- NOTE | 2023-12-12 16:49 | MR ---
EXAMINATION TYPE: MR brain wo/w shane cat DATE OF EXAM: 12/12/2023 4:35 PM CLINICAL INDICATION:Male, 63 years old with history of New onset seizure, spinal stenosis.; PHH, New onset seizure, spinal stenosis. COMPARISON: 12/10/2023. TECHNIQUE: Multi planar, multi sequence imaging was performed through the brain including: T1, T2, Inversion rec overy, Diffusion weighted imaging, and gradient echo imaging. No gadolinium was given. Multi planar, multi sequence imaging was performed utilizing: T1-weighted, T2-weighted, and turbo inv ersion recovery imaging of the cervical spine. IV Contrast: 6 cc Gadavist FINDINGS: The cordero-white junctions, ventricular system, basal cisterns appear unremarkable. Scattered foci ar eas of high T2 signal intensity are seen within the periventricular white matter. Midline structures show no abnormality. Diffusion-weighted imaging shows no evidence of restricted diffusion. The suscep tibility weighted images do not reveal any evidence for micro-hemorrhage. The bone marrow signal is within normal limits. Paranasal sinuses and mastoid air cells: Left maxillary sinus retention cyst Visualized orbits: Orbital contents are intact. Alignment: The cervical vertebral bodies have preserved heights. Alignment is within normal limits gi lety patient positioning. Bones: Multilevel disc space narrowing and osteophyte formation with facet and uncovertebral joint ar thropathy. Cord: The spinal cord is unremarkable with regards to their signal intensity and morphology. Discs: Multilevel disc desiccation is present. C2-C3: No significant disc pathology. The spinal canal is patent. No neural foraminal stenosis. C3-C4: A disc osteophyte complex is present with mild to moderate spinal canal stenosis. Bilateral f acet and uncovertebral joint arthropathy are present with moderate to severe right and mild to modera te left neural foraminal stenosis. C4-C5: A disc osteophyte complex is present with moderate spinal canal stenosis. Bilateral facet and uncovertebral joint arthropathy are present with mild to moderate left and moderate right neural for aminal stenosis. C5-C6: No significant disc pathology. The spinal canal is patent. Bilateral facet and uncovertebral joint arthropathy are present with severe bilateral neural foraminal stenosis. C6-C7: No significant disc pathology. The spinal canal is patent. Bilateral facet and uncovertebral joint arthropathy are present with mild to moderate bilateral neural foraminal stenosis. C7-T1: No significant disc pathology. The spinal canal is patent. No neural foraminal stenosis. Other: None. IMPRESSION: 1. No evidence of intracranial mass or acute/subacute infarct. 2. Nonspecific white matter changes, likely secondary to small vessel ischemic disease. 3. No evidence for disc herniation. 4. Moderate disc degeneration with associated osteoarthritic changes with multilevel neural foramina l stenosis worse at C5-6 with severe bilateral, C4-C5 with moderate right, moderate severe right C3-C 4. 5. Moderate spinal canal stenosis at C4-C5 cord signal is maintained.
[2023-12-12] MEDS: lisinopriL 10 MG TAB PO SCH (20:54)
[2023-12-13 09:40] LABS: African American GFR (CKD) >90 (>60 ml/min/1.73 sqM); Anion Gap 13 mmol/L; Blood Urea Nitrogen 15 mg/dL (9-20); Calcium 9.1 mg/dL (8.4-10.2); Carbon Dioxide 23 mmol/L (22-30); Chloride 98 mmol/L (98-107); Glucose 115 mg/dL (74-99); Non-African American GFR(CKD) >90 (>60 ml/min/1.73 sqM); Potassium 3.7 mmol/L (3.5-5.1); Sodium 134 mmol/L (137-145)
[2023-12-13 09:48] LABS: Creatine Kinase 2494 U/L (55-170)
--- NOTE | 2023-12-13 10:31 | P.PN ---
Subjective Progress Note Date: 12/12/23 Patient was seen for follow-up. Patient is laying in the bed. He appears very comfortable. States he is back to normal. Patient does having a mild headache 2/10, but nothing bothering. His also admits that he is back to baseline. Objective - Vital Signs Vital signs: Vital Signs Temp 98.8 F 12/12/23 12:20 Pulse 83 12/12/23 17:10 Resp 16 12/12/23 17:10 BP 163/73 12/12/23 17:10 Pulse Ox 98 12/12/23 17:10 FiO2 Intake & Output 12/11/23 12/12/23 12/12/23 18:59 06:59 18:59 Intake Total 0 1510 Balance 0 1510 Weight 58.967 kg Intake: Intake, IV Titration 0 Amount Diltiazem 125 mg In 0 Sodium Chloride 0.9% 100 ml @ 5 MG/HR 5 mls/hr IV .Q24H [facility] Rx#:[id number] Oral 1510 Other: Voiding Method Toilet Toilet # Voids 1 3 - Exam Patient's mental status, speech and language functions are normal. Affect is normal. Rest of the examination is nonfocal. - Labs CBC & Chem 7: 12/11/23 08:41 12/13/23 08:11 Labs: Microbiology - Last 24 Hours (Table) 12/10/23 08:30 Blood Culture - Preliminary Blood 12/11/23 14:36 Blood Culture Gram Stain - Preliminary Blood 12/10/23 08:28 Blood Culture Gram Stain - Preliminary Blood Blood Culture - Preliminary Coagulase Negative Staph Molecular ID Assessment and Plan Assessment: * New onset seizure with prolonged postictal state. Exact cause of seizure remains uncertain. 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 * Lactic acidosis, likely due to seizure. * Rhabdomyolysis, likely due to seizure. Most recent CPK 2258. * Hyponatremia sodium 131, now resolved * Elevated troponin 0.255 * Abnormal CT cervical spine, with reported critical stenosis at C3-4 and C5-6. * Marijuana use * Ex tobacco use Plan: * Patient has presented with new onset seizure of unclear etiology. Patient does have mild hyponatremia but probably would not result in a seizure. Patient has been feeling lightheaded and somnolent whole day before seizure. * MRI of the brain with and without contrast was performed, which is normal with no evidence of intracranial mass or acute/subacute infarct. Nonspecific white matter changes, likely secondary to small vessel ischemic disease. I personally reviewed MRI agree with the findings. * EEG 12/10/2023, which is mildly abnormal due to intermittent background slowing, suggestive of mild encephalopathy. No focal, lateralized or epileptiform activity was seen. * As patient's workup is normal including EEG and MRI, therefore recommendation is not to place on antiepileptic medication. * Patient was suggested that if he wants further testing, he may follow-up with neurologist and undergo prolonged, 2-1/2 or even 24 hours EEG for further evaluation. * We discussed about lumbar puncture, but patient just recently discontinued Plavix on arrival. He has to be off Plavix for 7 days before LP can be considered. His believes that he is back to baseline. MRI of the brain normal. * If he has a second unprovoked seizure, then would be an indication for antiepileptic medication. * Patient and his informed of [place] state law of no driving unless seizure-free for 6 months, climbing ladders, operating dangerous machinery or unsupervised swimming. * Patient was recommended to avoid seizure triggers like sleep deprivation, alcohol or use of any medication that lowers seizure threshold. Patient denies any alcohol use. * MRI of the cervical spine revealed no evidence of disc herniation. Moderate disc degeneration with associated osteoarthritic changes with multilevel neural foraminal stenosis worse at C5-6 with severe bilateral, C4-5 with moderate right, moderate to severe right C3-4. Moderate spinal canal stenosis at C4-5, however cord signal is maintained. I personally reviewed MRI agree with the findings. Patient may follow-up with orthopedic spine as needed, outpatient. * 2D echo revealed normal left ventricular systolic function with impaired relaxation. EF is 55 to 60%. Grade 1 diastolic dysfunction. No obvious regional wall motion abnormalities. Mildly increased left atrial volume. * Check carotid Doppler to cover the syncopal/syncope workup * Patient has rhabdomyolysis, most recent CPK 2258. Will recheck in the morning. * Cardiology input appreciated. Patient was initially placed on heparin for elevated cardiac enzymes. Now the heparin has been discontinued and patient started on Eliquis 5 mg twice daily. Also on aspirin 81 mg daily. Plavix discontinued. (Prior to arrival patient was on aspirin and Plavix)
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
--- NOTE | 2023-12-13 11:17 | US ---
EXAMINATION TYPE: US carotid duplex BILAT DATE OF EXAM: 12/13/2023 Exam done portable COMPARISON: NONE CLINICAL INDICATION: Male, 63 years old with history of Syncope vs seizure; TECHNIQUE: Carotid duplex ultrasound examination. Indirect Doppler criteria was utilized. FINDINGS: EXAM MEASUREMENTS: RIGHT: Peak Systolic Velocity (PSV) cm/sec ----- Right CCA: 51.1 ----- Right ICA: 79.4 stent stent appears patent. ----- Right ECA: 88.7 ICA/CCA ratio: 1.6 RIGHT: End Diastole cm/sec ----- Right CCA: 18.8 ----- Right ICA: 28.6 ----- Right ECA: 12.0 LEFT: Peak Systolic Velocity (PSV) cm/sec ----- Left CCA: 92.7 ----- Left ICA: 138.4 ----- Left ECA: 116.7 ICA/CCA ratio: 1.5 LEFT: End Diastole cm/sec ----- Left CCA: 16.3 ----- Left ICA: 32.8 ----- Left ECA: 14.6 VERTEBRALS (direction of flow): Right Vertebral: Antegrade Left Vertebral: Antegrade Rhythm: Normal No significant stenosis IMPRESSION: 1. Less than 50% stenosis of the right carotid bifurcations. 2. 50-69% stenosis of the left carotid bifurcation by peak systolic velocity. Criteria for Assigning % of Stenosis / Diameter reduction (Estimation based on the indirect measurements of the internal carotid artery velocities (ICA PSV). 1. Normal (no stenosis)=ICA PSV < 125 cm/s: ratio < 2.0: ICA EDV<40 cm/s. 2. Less than 50% stenosis=ICA PSV < 125 cm/s: ratio < 2.0: ICA EDV<40 cm/s. 3. 50 to 69% stenosis=ICA PSV of 125 to 230 cm/s: ration 2.0 ? 4.0: ICA EDV 40-100 cm/s. 4. Greater than 70% stenosis to near occlusion= ICA PSV > 230 cm/s: ratio > 4.0: ICA EDV > 100 cm/s. 5. Near occlusion= ICA PSV velocities may be low or undetectable: variable ratio and ICA EDV. 6. Total occlusion=unable to detect flow.
--- NOTE | 2023-12-13 12:04 | P.PN ---
Subjective Progress Note Date: 12/13/23 63-year-old male with history of hypertension, CAD status post stent, A-fib, hypertension, dyslipidemia presented after witnessed seizure. Head/C-spine CT in the emergency room revealed no acute abnormalities aside from cervical spine stenosis at C3-4 and C5-6 with MRI C-spine recommended. EKG revealed A-fib at 131 bpm with findings consistent with LVH. Chest x-ray was unremarkable. Laboratory evaluation was remarkable for leukocytosis of 14.1, VBG pH 7.18, sodium 131, chloride 97, CO2 less than 5, lactic acid 16.1, with urine toxicology positive for marijuana. Patient also had elevated troponin, CK elevated at 3000. Started on IV fluids, heparin drip, cardiology consulted. EEG did not show any epileptiform activity. Echo showed EF55-60% with G1DD. MRI brain and C-spine showed no acute infarct moderate spinal canal stenosis C4-C5. Patient started on Eliquis and heparin drip discontinued. Initial blood cultures coagulase negative staph, repeat blood cultures are positive for presumptive staph. Patient started on Cefzolin 1g IV TID and ID consulted. Patient seen and examined at bedside. No acute events overnight. Feeling well. Carotid doppler shows < 50% R carotid and 50-69% L carotid stenosis. BMP shows Na 134, Cr 0.64, glu 115. CPK 2494. Vitals Signs Reviewed. General: Nontoxic, no distress, appears at stated age Derm: Warm, dry Head: Atraumatic, normocephalic, symmetric Eyes: EOMI, no lid lag, anicteric sclera Mouth: No lip lesion, mucus membranes moist Cardiovascular: S1S2 reg, no murmur Lungs: CTA bilateral, no rhonchi, no rales, no accessory muscle use Ext: No gross muscle atrophy, no edema, no contractures Neuro: no focal neuro deficits Psych: Alert, oriented, appropriate affect New onset seizures: Neurology recommends no antiepileptic medication. Patient a nd his informed of [place] state law of no driving unless seizure-free for 6 months, climbing ladders, operating dangerous machinery or unsupervised swimming. Acute rhabdomyolysis: Trending down. Renal function within normal limits. Encourage hydration by mouth. Atrial fibrillation with RVR: Metoprolol 25 mg PO BID. Eliquis 5 mg PO BID. Elevated troponin likely nonischemic: Likely due to acute rhabdomyolysis. Cardiology cleared the patient for discharge. Gram positive bacteremia: Most recent BCx presumptive staph. Started on Cefzolin 1g IV TID. ID consulted. Cervical spinal canal stenosis: No FND. Orthopedic Sx outpatient follow up. Carotid stenosis: Outpatient Vascular Sx follow up. Resolved: Leukocytosis, Lactic acidosis, Hypokalemia Chronic: History of CAD, HLD, HTN CODE STATUS: FULL CODE DVT Prophylaxis: Eliquis GI Prophylaxis: Designated medical POA if patient is not able to make medical decisions for themselves: I have reviewed the following splunk consultant notes: Cardiology, Neurology I have reviewed the results of the following tests: Carotid doppler, BMP. CPK. I have ordered the following tests: Repeat BCx taken today. I have discussed the care of this patient with the following independent historian: Significant other I have independently interpreted the following test below: I have discussed the management of this patient with the following physician: Objective - Vital Signs Vital signs: Vital Signs Temp 98.1 F 12/13/23 08:00 Pulse 88 12/13/23 08:00 Resp 16 12/13/23 08:00 BP 157/60 12/13/23 08:00 Pulse Ox 100 12/13/23 08:00 FiO2 Intake & Output 12/12/23 12/13/23 12/13/23 18:59 06:59 18:59 Intake Total 1510 Balance 1510 Intake: Oral 1510 Other: Voiding Method Toilet Toilet Toilet # Voids 3 - Labs CBC & Chem 7: 12/11/23 08:41 12/13/23 08:11 Labs: Abnormal Lab Results - Last 24 Hours (Table) 12/13/23 Range/Units 08:11 Sodium 134 L (137-145) mmol/L Creatinine 0.64 L (0.66-1.25) mg/dL Glucose 115 H (74-99) mg/dL Creatine Kinase 2494 H* (55-170) U/L Microbiology - Last 24 Hours (Table) 12/10/23 08:28 Blood Culture Gram Stain - Final Blood Blood Culture - Final Coagulase Negative Staph Molecular ID 12/11/23 14:36 Blood Culture Gram Stain - Preliminary Blood Blood Culture - Preliminary Presumptive Staph aureus 12/11/23 14:44 Blood Culture - Preliminary Blood 12/10/23 08:30 Blood Culture - Preliminary Blood
[2023-12-13 13:30] LABS: Basophils % (A) 0 %; Eosinophils % (A) 0 %; HCT 43.9 % (39.0-53.0); HGB 14.6 gm/dL (13.0-17.5); Lymphocytes # (A) 0.8 k/uL (1.0-4.8); Lymphocytes % (A) 10 %; MCHC 33.3 g/dL (31.0-37.0); MCV 96.1 fL (80.0-100.0); Mean Platelet Volume 9.3; Monocytes # (A) 0.4 k/uL (0-1.0); Monocytes % (A) 5 %; Neutrophils # (A) 6.1 k/uL (1.3-7.7); Neutrophils % (A) 83 %; Platelet Count 165 k/uL (150-450); RBC 4.56 m/uL (4.30-5.90); RDW 12.7 % (11.5-15.5); WBC 7.4 k/uL (3.8-10.6)
[2023-12-13] MEDS: VENLAFAXINE HCL ER 150 MG CAP PO SCH (16:33)
--- NOTE | 2023-12-13 21:45 | P.CONS ---
History of Present Illness - Reason for Consult Consult date: 12/13/23 Bacteremia Requesting physician: Carline Natarajan - Chief Complaint Seizures not feeling well x few days - History of Present Illness Patient is a 63-year-old male past medical history significant for hypertension hyperlipidemia atrial fibrillation previous history of MRSA infection to the hand presenting to the hospital for 10/20/2023 after apparently the patient did have a seizure activity patient apparently woke up from a deep sleep went to the bathroom did have an episode of vomiting and subsequently patient was noted to be thrashing around concerning for a tonic-clonic seizure EMS was called and patient was noticed to be postictal and become extremely combative while the patient has been brought into the hospital on arrival to the ER patient did have a low-grade fever of 99.5 F no fever have been noted subsequently to that patient was not tachycardic hypotensive or hypoxic and no need for supplemental oxygen he did have a white count of 18,000 on admission subsequent normalized kidney function was normal liver isms are normal CK and troponin mildly elevated urine was negative urine testing was positive for marijuana patient did have a blood cultures obtained one of them came back positive with a coagulase-negative staph blood culture repeated the next day on 12/11/2023 coming back positive for Staph aureus, that has prompted this infect ious disease consultation patient currently denies having any headache or URI symptoms no chest pain or shortness with occasional cough no further nausea vomiting abdominal pain denies any diarrhea or constipation patient apparently mentioned has been working outside working on giftee and has some skin maceration patient upper back area with the patient attributing to wasp bites currently denies having any significant pain itching or drainage to those area or any drainage patient workup so far include chest x-ray that was negative for acute cardiopulmonary disease process patient did have a echocardiogram that was negative for any vegetation Review of Systems Positive point and negatives has been mentioned in the HPI, complete review of systems was performed and all other systems are negative Past Medical History Past Medical History: Atrial Fibrillation, Hyperlipidemia, Hypertension Additional Past Medical History / Comment(s): borderline diabetic History of Any Multi-Drug Resistant Organisms: MRSA Year Discovered:: 02/09/20 MDRO Source:: HAND MRSA Past Surgical History: Heart Catheterization, Heart Catheterization With Stent, Orthopedic Surgery Additional Past Surgical History / Comment(s): Carotid stent right side, [facility] for femur fracture and removed later Past Anesthesia/Blood Transfusion Reactions: No Reported Reaction Date of Last Stent Placement:: 2007 Past Psychological History: No Psychological Hx Reported Smoking Status: Former smoker Past Alcohol Use History: None Reported Past Drug Use History: Marijuana - Past Family History Mother Family Medical History: CVA/TIA Additional Family Medical History / Comment(s): of stroke Father Family Medical History: Coronary Artery Disease (CAD) Additional Family Medical History / Comment(s): of heart attack Medications and Allergies Home Medications Medication Instructions Recorded Confirmed Type Atorvastatin [Lipitor] 20 mg PO HS 05/05/19 12/10/23 History Venlafaxine HCl [Effexor XR] 150 mg PO DAILY 02/09/20 12/10/23 History Aspirin 81 mg PO DAILY 12/10/23 12/10/23 History Lisinopril-Hctz 20-25 mg 1 tab PO DAILY 12/10/23 12/10/23 History [Zestoretic 20-25] Omeprazole Magnesium [PriLOSEC OTC] 20 mg PO DAILY 12/10/23 12/10/23 History amLODIPine [Norvasc] 10 mg PO DAILY 12/10/23 12/10/23 History Apixaban [Eliquis] 5 mg PO BID #90 tab 12/17/23 Rx Metoprolol Tartrate [Lopressor] 50 mg PO BID #90 tab 12/17/23 Rx ceFAZolin [Kefzol] 2 gm IVP Q8HR 10 Days ml 12/17/23 Rx Allergies Allergy/AdvReac Type Severity Reaction Status Date / Time naproxen [From Naprosyn] Allergy Rash/Hives Verified 12/10/23 07:48 Physical Exam Vitals: Vital Signs Temp Pulse Pulse Resp BP Pulse Ox 12/13/23 08:00 98.1 F 88 16 157/60 100 12/13/23 04:00 98.2 F 91 18 149/70 98 12/13/23 02:00 84 19 12/13/23 00:00 98.5 F 84 18 148/73 99 12/12/23 20:00 98.4 F 87 19 181/92 98 12/12/23 17:10 83 16 163/73 98 12/12/23 12:20 98.8 F 83 16 169/80 98 Intake and Output 12/12/23 12/13/2324 22:59 06:59 14:59 Intake Total 480 Balance 480 Intake: Oral 480 Other: Voiding Method Toilet Toilet Toilet # Voids 3 GENERAL DESCRIPTION: Elderly male lying in bed, no distress. No tachypnea or accessory muscle of respiration use. HEENT: Shows Pallor , no scleral icterus. Oral mucous membrane is dry. No pharyngeal erythema or thrush NECK: Trachea central, no thyromegaly. LUNGS: Unlabored breathing. Clear to auscultation anteriorly. No wheeze or crackle. HEART: S1, S2, regular rate and rhythm. No loud murmur ABDOMEN: Soft, no tenderness , guarding or rigidity, no organomegaly EXTREMITIES: No edema of feet. SKIN: Upper back area did have some bite spence and some surrounding redness NEUROLOGICAL: The patient is awake, alert, oriented x3, mood and affect normal. Results CBC & Chem 7: 12/15/23 06:52 12/17/23 06:37 Labs: Abnormal Lab Results - Last 24 Hours (Table) 12/13/23 Range/Units 08:11 Sodium 134 L (137-145) mmol/L Creatinine 0.64 L (0.66-1.25) mg/dL Glucose 115 H (74-99) mg/dL Creatine Kinase 2494 H* (55-170) U/L Microbiology - Last 24 Hours (Table) 12/10/23 08:28 Blood Culture Gram Stain - Final Blood Blood Culture - Final Coagulase Negative Staph Molecular ID 12/11/23 14:36 Blood Culture Gram Stain - Preliminary Blood Blood Culture - Preliminary Presumptive Staph aureus 12/11/23 14:44 Blood Culture - Preliminary Blood 12/10/23 08:30 Blood Culture - Preliminary Blood Assessment and Plan (1) MSSA bacteremia Status: Acute Code(s): R78.81 - BACTEREMIA; B95.61 - METHICILLIN SUSCEP STAPH INFCT CAUSING DIS CLASSD [id number] SNOMED Code(s): 863841818 Plan: 1patient with bacteremia one of the blood which grew staph epi could be a skin contaminant however patient is also growing Staph aureus which is never a contaminant source could be skin and soft tissue as the patient did have multiple scratches and bite spence on the upper back area and so far workup has been negative for any deep infection chest x-ray was negative echocardiogram did not show any evidence of vegetation abdominal soft on clinical examination 2-blood cultures will be repeated document clearance of bacteremia and check inflammatory markers 3-cefazolin 2 g every 8 hour antibiotic dose adjusted 4-we will check a WBC scan to guide further diagnostic procedure Multiple question concern answered We will follow on clinical condition and cultures to further adjust medication if needed Thank you for this consultation we will follow the patient along with you Dictation was produced using D[employer] dictation software. please excuse any gra mmatical, word or spelling errors. Time with Patient: Greater than 30
[2023-12-14] MEDS: METOPROLOL TARTRATE 25 MG TAB PO STA (09:08)
--- NOTE | 2023-12-14 10:56 | P.PN ---
Subjective Progress Note Date: 12/13/23 Patient was seen for follow-up. Patient is laying in the bed. He appears very comfortable. States he is back to normal. Patient continues to have headache 5/10. He believes it is from the stress. Also believes that because he has not been taking his Effexor, therefore may be withdrawal from that. He has been resumed on Effexor. No fever or chills. Patient has positive blood cultures therefore still in the hospital. ID has been consulted. Patient has multiple small wounds on the body. One of them is in the posterior neck region, which he states that sometimes drains. No real abscess was noticed. Also has some rash over the left thigh region, and smaller area in the right thigh region. Overall it appears more like herpetic lesion, but it is bilateral. Patient believes these lesions are from from the wasp stung, when it happened while he was working outside. Objective - Vital Signs Vital signs: Vital Signs Temp 98.1 F 12/13/23 08:00 Pulse 86 12/13/23 16:00 Resp 16 12/13/23 16:00 BP 136/71 12/13/23 16:00 Pulse Ox 97 12/13/23 16:00 FiO2 Intake & Output 12/12/23 12/13/23 12/13/23 18:59 06:59 18:59 Intake Total 1510 118 Balance 1510 118 Intake: Oral 1510 118 Other: Voiding Method Toilet Toilet Toilet # Voids 3 3 - Exam Patient's mental status, speech and language functions are normal. Affect is normal. Rest of the examination is nonfocal. - Labs CBC & Chem 7: 12/13/23 08:11 12/13/23 08:11 Labs: Abnormal Lab Results - Last 24 Hours (Table) 12/13/23 12/13/23 12/13/23 Range/Units 08:11 08:11 08:11 Lymphocytes # 0.8 L (1.0-4.8) k/uL Sodium 134 L (137-145) mmol/L Creatinine 0.64 L (0.66-1.25) mg/dL Glucose 115 H (74-99) mg/dL Creatine Kinase 2494 H* (55-170) U/L C-Reactive Protein 1.1 H (<1.0) mg/dL Microbiology - Last 24 Hours (Table) 12/10/23 08:30 Blood Culture - Preliminary Blood 12/10/23 08:28 Blood Culture Gram Stain - Final Blood Blood Culture - Final Coagulase Negative Staph Molecular ID 12/11/23 14:36 Blood Culture Gram Stain - Preliminary Blood Blood Culture - Preliminary Presumptive Staph aureus 12/11/23 14:44 Blood Culture - Preliminary Blood Assessment and Plan Assessment: * New onset seizure with prolonged postictal state. Exact cause of seizure remains uncertain. 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 * Lactic acidosis, likely due to seizure. * Positive blood cultures with presumptive Staph aureus. Exact source is uncertain. * Rhabdomyolysis, likely due to seizure. Most recent CPK 2258. * Hyponatremia sodium 131, now resolved * Elevated troponin 0.255 * Abnormal CT cervical spine, with reported critical stenosis at C3-4 and C5-6. * Marijuana use * Ex tobacco use Plan: * Patient has presented with new onset seizure of unclear etiology. Patient does have mild hyponatremia but probably would not result in a seizure. Patient has been feeling lightheaded and somnolent whole day before seizure. * MRI of the brain with and without contrast was performed, which is normal with no evidence of intracranial mass or acute/subacute infarct. Nonspecific white matter changes, likely secondary to small vessel ischemic disease. I personally reviewed MRI agree with the findings. * EEG 12/10/2023, which is mildly abnormal due to intermittent background slowing, suggestive of mild encephalopathy. No focal, lateralized or epileptiform activity was seen. * As patient's workup is normal including EEG and MRI, therefore recommendation is not to place on antiepileptic medication. * Patient was suggested that if he wants further testing, he may follow-up with neurologist and undergo prolonged, 2-1/2 or even 24 hours EEG for further evaluation. * We discussed about lumbar puncture, but patient just recently discontinued Plavix on arrival. He has to be off Plavix for 7 days before LP can be considered. His believes that he is back to baseline. MRI of the brain normal. * If he has a second unprovoked seizure, then would be an indication for antiepileptic medication. * Patient and his were informed of [place] state law of no driving unless seizure-free for 6 months, climbing ladders, operating dangerous machinery or unsupervised swimming. * Patient was recommended to avoid seizure triggers like sleep deprivation, alcohol or use of any medication that lowers seizure threshold. Patient denies any alcohol use. * MRI of the cervical spine revealed no evidence of disc herniation. Moderate disc degeneration with associated osteoarthritic changes with multilevel neural foraminal stenosis worse at C5-6 with severe bilateral, C4-5 with moderate right, moderate to severe right C3-4. Moderate spinal canal stenosis at C4-5, however cord signal is maintained. I personally reviewed MRI agree with the findings. Patient may follow-up with orthopedic spine as needed, outpatient. * 2D echo revealed normal left ventricular systolic function with impaired relaxation. EF is 55 to 60%. Grade 1 diastolic dysfunction. No obvious regional wall motion abnormalities. Mildly increased left atrial volume. * Carotid Doppler revealed less than 50% stenosis of the right carotid bifurcation. 50 to 69% stenosis of the left carotid bifurcation. Antegrade flow in both vertebral arteries. * Patient on aspirin and Eliquis. * Patient has positive blood cultures and Staph aureus is suspected. Infectious disease on board. Patient on cefazolin. WBC scan ordered. * Patient has rhabdomyolysis, most recent CPK 2258. Will recheck in the morning. * Cardiology input appreciated. Patient was initially placed on heparin for elevated cardiac enzymes. Now the heparin has been discontinued and patient started on Eliquis 5 mg twice daily. Also on aspirin 81 mg daily. Plavix discontinued. (Prior to arrival patient was on aspirin and Plavix)
--- NOTE | 2023-12-14 11:45 | P.PN ---
Subjective Progress Note Date: 12/14/23 63-year-old male with history of hypertension, CAD status post stent, A-fib, hypertension, dyslipidemia presented after witnessed seizure. Head/C-spine CT in the emergency room revealed no acute abnormalities aside from cervical spine stenosis at C3-4 and C5-6 with MRI C-spine recommended. EKG revealed A-fib at 131 bpm with findings consistent with LVH. Chest x-ray was unremarkable. Laboratory evaluation was remarkable for leukocytosis of 14.1, VBG pH 7.18, sodium 131, chloride 97, CO2 less than 5, lactic acid 16.1, with urine toxicology positive for marijuana. Patient also had elevated troponin, CK elevated at 3000. Started on IV fluids, heparin drip, cardiology consulted. EEG did not show any epileptiform activity. Echo showed EF55-60% with G1DD. MRI brain and C-spine showed no acute infarct moderate spinal canal stenosis C4-C5. Patient started on Eliquis and heparin drip discontinued. Initial blood cultures coagulase negative staph, repeat blood cultures are positive for presumptive staph. Patient started on Cefzolin 1g IV TID and ID consulted. ID recommended WBC scan. Patient seen and examined at bedside. No acute events overnight. Tachycardic with HR in the 120s this morning, given Metoprolol 25 mg PO by Cardiology. EKG ordered, sinus bradycardia with ST depression. Repeat blood cultures have been ordered. WBC scan is pending. General: Nontoxic, no distress, appears at stated age Derm: Warm, dry Head: Atraumatic, normocephalic, symmetric Eyes: EOMI, no lid lag, anicteric sclera Mouth: No lip lesion, mucus membranes moist Cardiovascular: S1S2 reg, no murmur Lungs: CTA bilateral, no rhonchi, no rales, no accessory muscle use Ext: No gross muscle atrophy, no edema, no contractures Neuro: no focal neuro deficits Psych: Alert, oriented, appropriate affect New onset seizures: Neurology recommends no antiepileptic medication. Patient and his informed of [place] state law of no driving unless seizure-free for 6 months, climbing ladders, operating dangerous machinery or unsupervised swimming. Acute rhabdomyolysis: Trending down. Renal function within normal limits. Encourage hydration by mouth. Atrial fibrillation with RVR: Metoprolol 25 mg PO BID. Eliquis 5 mg PO BID. Elevated troponin likely nonischemic: Likely due to acute rhabdomyolysis. Cardiology cleared the patient for discharge. Gram positive bacteremia: Most recent BCx presumptive staph. Started on Cefzolin 2g IV TID. Repeat BCx. WBC scan. ID consulted. Cervical spinal canal stenosis: No FND. Orthopedic Sx outpatient follow up. Carotid stenosis: Outpatient Vascular Sx follow up. Resolved: Leukocytosis, Lactic acidosis, Hypokalemia Chronic: History of CAD, HLD, HTN Patient will likely need PICC line and IV antibiotics on discharge. ID on board. PICC line unable to be done until Sunday. CODE STATUS: FULL CODE DVT Prophylaxis: Eliquis GI Prophylaxis: Designated medical POA if patient is not able to make medical decisions for themselves: I have reviewed the following [employer] consultant notes: Cardiology, Neurology, ID I have reviewed the results of the following tests: I have ordered the following tests: Repeat BCx pending. I have discussed the care of this patient with the following independent historian: I have independently interpreted the following test below: EKG I have discussed the management of this patient with the following physician: Dr. Stanford Objective - Vital Signs Vital signs: Vital Signs Temp 98.7 F 12/14/23 07:42 Pulse 120 H 12/14/23 07:42 Resp 16 12/14/23 07:42 BP 119/66 12/14/23 07:42 Pulse Ox 93 L 12/14/23 07:42 FiO2 Intake & Output 12/13/23 12/14/23 12/14/23 18:59 06:59 18:59 Intake Total 118 Balance 118 Intake: Oral 118 Other: Voiding Method Toilet Toilet # Voids 3 2 - Labs CBC & Chem 7: 12/13/23 08:11 12/13/23 08:11 Labs: Abnormal Lab Results - Last 24 Hours (Table) 12/13/23 12/13/23 12/13/23 Range/Units 08:11 08:11 08:11 Lymphocytes # 0.8 L (1.0-4.8) k/uL ESR 23 H (0-20) mm/Hr Sodium 134 L (137-145) mmol/L Creatinine 0.64 L (0.66-1.25) mg/dL Glucose 115 H (74-99) mg/dL Creatine Kinase 2494 H* (55-170) U/L C-Reactive Protein (<1.0) mg/dL 12/13/23 Range/Units 08:11 Lymphocytes # (1.0-4.8) k/uL ESR (0-20) mm/Hr Sodium (137-145) mmol/L Creatinine (0.66-1.25) mg/dL Glucose (74-99) mg/dL Creatine Kinase (55-170) U/L C-Reactive Protein 1.1 H (<1.0) mg/dL Microbiology - Last 24 Hours (Table) 12/11/23 14:44 Blood Culture - Preliminary Blood 12/10/23 08:30 Blood Culture - Preliminary Blood
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
--- NOTE | 2023-12-14 15:58 | NM ---
EXAMINATION TYPE: NM WBC whole body DATE OF EXAM: 12/14/2023 COMPARISON: NONE CLINICAL INDICATION: Male, 63 years old with history of bacteremia , source; TECHNIQUE: Following administration of 15.3 mCi Tc99m Ceretec. Images obtained 3 hours post injecti on. FINDINGS: Normal physiological tracer activity is noted in the liver and spleen and in the bone marrow of the a xial and appendicular skeleton. No suspicious additional focus of radiotracer accumulation. IMPRESSION: Normal white blood cell scan. No evidence for abnormal tracer activity. No discrete abnormality for fever of unknown origin location.
[2023-12-14] MEDS: METOPROLOL TARTRATE 50 MG TAB PO SCH (20:03)
--- NOTE | 2023-12-15 07:44 | P.PN ---
Subjective Progress Note Date: 12/14/23 Principal diagnosis: Reason for follow-up is MSSA bacteremia Patient is a 63-year-old male past medical history significant for hypertension hyperlipidemia atrial fibrillation previous history of MRSA infection to the hand presenting to the hospital for 10/20/2023 after apparently the patient did have a seizure activity, patient also have a positive blood culture with MSSA prompting this consultation. On today's evaluation that is 12/14/2023, patient has been afebrile, patient is breathing comfortably and is currently on room air, patient denies having any significant cough no chest pain shortness of breath, patient denies nausea vomiting or diarrhea and no abdominal pain. No CBC was done today blood culture repeat currently pending 1 blood culture with coagulase-negative staph underwent with MSSA Objective - Vital Signs Vital signs: Vital Signs Temp 98.1 F 12/14/23 12:00 Pulse 67 12/14/23 12:00 Resp 16 12/14/23 12:00 BP 108/68 12/14/23 12:00 Pulse Ox 98 12/14/23 12:00 FiO2 Intake & Output 12/13/23 12/14/23 12/14/23 18:59 06:59 18:59 Intake Total 118 118 Balance 118 118 Intake: Oral 118 118 Other: Voiding Method Toilet Toilet Toilet # Voids 3 2 3 - Exam GENERAL DESCRIPTION: An elderly male lying in bed in no distress RESPIRATORY SYSTEM: Unlabored breathing , decreased breath sounds at bases HEART: S1 S2 regular rate and rhythm , ABDOMEN: Soft , no tenderness EXTREMITIES: No edema feet - Labs CBC & Chem 7: 12/13/23 08:11 12/13/23 08:11 Labs: Abnormal Lab Results - Last 24 Hours (Table) 12/13/23 12/13/23 12/13/23 Range/Units 08:11 08:11 08:11 Lymphocytes # 0.8 L (1.0-4.8) k/uL ESR 23 H (0-20) mm/Hr C-Reactive Protein 1.1 H (<1.0) mg/dL Microbiology - Last 24 Hours (Table) 12/11/23 14:36 Blood Culture Gram Stain - Final Blood Blood Culture - Final Staphylococcus aureus 12/11/23 14:44 Blood Culture - Preliminary Blood 12/10/23 08:30 Blood Culture - Preliminary Blood Assessment and Plan (1) MSSA bacteremia Current Visit: Yes Status: Acute Code(s): R78.81 - BACTEREMIA; B95.61 - METHICILLIN SUSCEP STAPH INFCT CAUSING DIS CLASSD [id number] SNOMED Code(s): 580611046 Plan: 1patient with bacteremia one of the blood which grew staph epi could be a skin contaminant however patient is also growing Staph aureus which is never a contaminant source could be skin and soft tissue as the patient did have multiple scratches and bite spence on the upper back area and so far workup has been negative for any deep infection chest x-ray was negative echocardiogram did not show any evidence of vegetation abdominal soft on clinical examination 2-blood cultures has been repeated to document clearance of bacteremia, WBC scan is currently in progress 3-cefazolin 2 g every 8 hour while waiting for the workup to be completed Dictation was produced using [employer] dictation software. please excuse any grammatical, word or spelling errors. Time with Patient: Less than 30
[2023-12-15 07:46] LABS: HCT 45.5 % (39.0-53.0); HGB 15.1 gm/dL (13.0-17.5); MCH 31.2 pg (25.0-35.0); MCHC 33.2 g/dL (31.0-37.0); MCV 93.8 fL (80.0-100.0); Mean Platelet Volume 8.8; Platelet Count 195 k/uL (150-450); RBC 4.85 m/uL (4.30-5.90); RDW 12.6 % (11.5-15.5); WBC 7.6 k/uL (3.8-10.6)
[2023-12-15 07:50] LABS: African American GFR (CKD) >90 (>60 ml/min/1.73 sqM); Anion Gap 9 mmol/L; Blood Urea Nitrogen 29 mg/dL (9-20); Carbon Dioxide 27 mmol/L (22-30); Chloride 97 mmol/L (98-107); Glucose 109 mg/dL (74-99); Non-African American GFR(CKD) >90 (>60 ml/min/1.73 sqM); Potassium 4.2 mmol/L (3.5-5.1); Sodium 133 mmol/L (137-145)
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
--- NOTE | 2023-12-15 13:23 | P.PN ---
Subjective Progress Note Date: 12/15/23 Hospital Course: 63-year-old male with history of hypertension, CAD status post stent, A-fib, h ypertension, dyslipidemia presented after witnessed seizure. Head/C-spine CT in the emergency room revealed no acute abnormalities aside from cervical spine stenosis at C3-4 and C5-6 with MRI C-spine recommended. EKG revealed A-fib at 131 bpm with findings consistent with LVH. Chest x-ray was unremarkable. Laboratory evaluation was remarkable for leukocytosis of 14.1, VBG pH 7.18, sodium 131, chloride 97, CO2 less than 5, lactic acid 16.1, with urine toxicology positive for marijuana. Patient also had elevated troponin, CK elevated at 3000. Started on IV fluids, heparin drip, cardiology consulted. Renal function stable. EEG did not show any epileptiform activity. Echo showed EF55-60% with G1DD. MRI brain and C-spine showed no acute infarct moderate spinal canal stenosis C4-C5. Patient started on Eliquis and heparin drip discontinued. Initial blood cultures coagulase negative staph, repeat blood cultures are positive for presumptive staph. Patient started on Cefzolin 1g IV TID and ID consulted. ID recommended WBC scan, which was normal. Pending PICC line placement. Subjective: Patient seen and examined at bedside. No acute events overnight. Pertinent positives and negatives as discussed above, a complete review of systems was performed and all other systems are negative. Vitals Signs Reviewed. General: Nontoxic, no distress, appears at stated age Derm: Warm, dry Head: Atraumatic, normocephalic, symmetric Eyes: EOMI, no lid lag, anicteric sclera Mouth: No lip lesion, mucus membranes moist Cardiovascular: S1S2 reg, no murmur Lungs: CTA bilateral, no rhonchi, no rales, no accessory muscle use Abdominal: Soft, nontender to palpation, no guarding, no appreciable organomegaly Ext: No gross muscle atrophy, no edema, no contractures Neuro: CN II-XI grossly intact, no focal neuro deficits Psych: Alert, oriented, appropriate affect Data Reviewed Today: Pertinent Labs: Hemoglobin 15.1, sodium 133, creatinine 0.83 Imaging: No new imaging Assessment and Plan: MSSA bacteremia -Repeat blood cultures negative -On Cefzolin 2g IV TID -WBC scan negative -ID following, recommending PICC line, placement on Sunday New onset seizures -Neurology recommends no antiepileptic medication. Patient and his informed of [place] state law of no driving unless seizure-free for 6 months, climbing ladders, operating dangerous machinery or unsupervised swimming. Acute rhabdomyolysis -Initially down trended, then up trended slightly, repeat CK pending -Renal function within normal limits. Encourage hydration by mouth Atrial fibrillation with RVR Elevated troponin, likely secondary to acute rhabdo Hypertension -Metoprolol 50 mg PO BID. Eliquis 5 mg PO BID. -Cardiology note reviewed, stable from their standpoint -On amlodipine 10, hydrochlorothiazide 25, lisinopril 10 twice daily Cervical spinal canal stenosis -Orthopedic Sx outpatient follow up. Carotid stenosis -Outpatient Vascular Sx follow up. Resolved: Leukocytosis, Lactic acidosis, Hypokalemia Chronic: History of CAD, HLD, depression DVT ppx: Eliquis Code status: Full code Anticipated discharge place: Home Anticipated discharge time: Likely Sunday Objective - Vital Signs Vital signs: Vital Signs Temp 97.8 F 12/15/23 12:39 Pulse 55 L 12/15/23 12:39 Resp 18 12/15/23 12:39 BP 101/57 12/15/23 12:39 Pulse Ox 98 12/15/23 12:39 FiO2 Intake & Output 12/14/23 12/15/23 12/15/23 18:59 06:59 18:59 Intake Total 118 20 Balance 118 20 Intake: IV 20 Invasive Line 4 20 Oral 118 Other: Voiding Method Toilet Toilet Toilet # Voids 3 2 - Labs CBC & Chem 7: 12/15/23 06:52 12/15/23 06:52 Labs: Abnormal Lab Results - Last 24 Hours (Table) 12/15/23 Range/Units 06:52 Sodium 133 L (137-145) mmol/L Chloride 97 L (98-107) mmol/L BUN 29 H (9-20) mg/dL Glucose 109 H (74-99) mg/dL Microbiology - Last 24 Hours (Table) 12/11/23 14:44 Blood Culture - Preliminary Blood 12/13/23 08:11 Blood Culture - Preliminary Blood 12/11/23 14:36 Blood Culture Gram Stain - Final Blood Blood Culture - Final Staphylococcus aureus
[2023-12-15 15:46] VITALS: BMI 20.9
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
--- NOTE | 2023-12-16 10:49 | P.PN ---
Subjective Progress Note Date: 12/16/23 Patient is a patient is a 63-year-old male with a history of hypertension, coronary artery disease, A-fib, hypertension, and dyslipidemia who initially presented for witnessed seizure. Patient's hospital course was complicated by MSSA bacteremia. Currently awaiting PICC line placement. Patient seen and examined at bedside. He has no complaints. Feeling well. Anxious to go home. Denies any chest pain, shortness of breath, nausea, vomiting, diarrhea Vital signs reviewed General: Nontoxic, no distress, appears at stated age Cardiovascular: S1S2 reg, no murmur Lungs: CTA bilateral, no rhonchi, no rales, no accessory muscle use Abdominal: Soft, nontender to palpation, no guarding Ext: No gross muscle atrophy, no edema b/l lower extremities, no contractures Neuro: CN II-XI grossly intact, no focal neuro deficits Psych: Alert, oriented, appropriate affect Assessment/Plan: MSSA bacteremia, felt to be related to multiple superficial wounds -Repeat blood cultures negative -On Cefzolin 2g IV piggyback every 8 hours day #4 -WBC scan negative -Plan is for PICC line on 12/17/2023 -Patient has 100% coverage for office treatment with [facility] and should be able to receive outpatient IV antibiotics -Await further infectious disease recommendations. Note reviewed from 12/13 continue with cefazolin 2 g IV every 8 hours New onset seizures -Neurology recommends no antiepileptic medication. They have signed off -Patient and his have been informed of [place] law of no driving unless seizure-free for 6 months. Atrial fibrillation with RVR Elevated troponin, likely secondary to acute rhabdo Hypertension HLD -Metoprolol 50 mg PO BID. Eliquis 5 mg PO BID. Lipitor 20 mg HS. -Amlodipine 10mg daily, hydrochlorothiazide 25, lisinopril 10 twice daily -Cardiology note reviewed: Stable for discharge from cardiac standpoint Cervical spinal canal stenosis -follow-up if symptoms develop with ortho spine Carotid stenosis -F/U outpatient with Dr. kruger Resolved: Leukocytosis, Lactic acidosis, Hypokalemia, Acute rhabdomyolysis Chronic: History of CAD, HLD, depression Imaging Reviewed: Tagged white blood cell scan: Normal, no evidence of tracer activity Carotid Dopplers: 50-60 (send stenosis in the left carotid bifurcation, less than 50% in the right MRI brain and cervical spine: No acute intracranial mass, acute/subacute infarct, small vessel ischemic disease, moderate disc degeneration with arthritic changes at C5-6, C4-5, and C3-4 with moderate spinal canal stenosis at C4-C5 with cord signal maintained Echocardiogram: Ejection fraction 55 to 60% with grade 1 diastolic dysfunction EEG: Mildly abnormal due to intermittent background slowing suggestive of encephalopathy. No epileptiform activity Data Review: No new labs available for today. Will repeat basic metabolic profile in a.m. due to worsening hyponatremia noted from 12/14 DVT prophylaxis: Eliquis Anticipated discharge date: In a.m. Anticipated discharge place: Home This dictation was prepared using [employer] voice recognition software. Though every attempt is made to correct errors during dictation some may still exist. Objective - Vital Signs Vital signs: Vital Signs Temp 98.2 F 12/16/23 08:00 Pulse 74 12/16/23 08:00 Resp 20 12/16/23 08:00 BP 132/72 12/16/23 08:00 Pulse Ox 99 12/16/23 08:00 FiO2 Intake & Output 12/15/23 12/16/23 12/16/23 18:59 06:59 18:59 Intake Total 20 540 Balance 20 540 Weight 58.967 kg Intake: IV 20 Invasive Line 4 20 Oral 540 Other: Voiding Method Toilet Toilet # Voids 2 2 - Labs CBC & Chem 7: 12/15/23 06:52 12/15/23 06:52 Labs: Abnormal Lab Results - Last 24 Hours (Table) 12/15/23 Range/Units 06:52 Creatine Kinase 657 H (55-170) U/L Microbiology - Last 24 Hours (Table) 12/13/23 08:11 Blood Culture - Preliminary Blood 12/10/23 08:30 Blood Culture - Final Blood
--- NOTE | 2023-12-16 17:34 | P.PN ---
Subjective Progress Note Date: 12/15/23 Principal diagnosis: Reason for follow-up is MSSA bacteremia Patient is a 63-year-old male past medical history significant for hypertension hyperlipidemia atrial fibrillation previous history of MRSA infection to the hand presenting to the hospital for 10/20/2023 after apparently the patient did have a seizure activity, patient also have a positive blood culture with MSSA prompting this consultation. On today's evaluation that is 12/15/2023,the patient denies any fever or any chills, patient is breathing comfortably on room air, the patient denies chest pain shortness of breath and no significant cough, patient denies abdominal pain, no nausea vomiting or diarrhea. Patient white count is 7.6, creatinine 0.83 Objective - Vital Signs Vital signs: Vital Signs Temp 97.8 F 12/15/23 08:54 Pulse 86 12/15/23 08:54 Resp 18 12/15/23 08:54 BP 145/76 12/15/23 08:54 Pulse Ox 97 12/15/23 08:54 FiO2 Intake & Output 12/14/23 12/15/23 12/15/23 18:59 06:59 18:59 Intake Total 118 10 Balance 118 10 Intake: IV 10 Invasive Line 4 10 Oral 118 Other: Voiding Method Toilet Toilet Toilet # Voids 3 2 - Exam GENERAL DESCRIPTION: An elderly male lying in bed in no distress RESPIRATORY SYSTEM: Unlabored breathing , decreased breath sounds at bases HEART: S1 S2 regular rate and rhythm , ABDOMEN: Soft , no tenderness EXTREMITIES: No edema feet - Labs CBC & Chem 7: 12/15/23 06:52 12/15/23 06:52 Labs: Abnormal Lab Results - Last 24 Hours (Table) 12/15/23 Range/Units 06:52 Sodium 133 L (137-145) mmol/L Chloride 97 L (98-107) mmol/L BUN 29 H (9-20) mg/dL Glucose 109 H (74-99) mg/dL Microbiology - Last 24 Hours (Table) 12/11/23 14:44 Blood Culture - Preliminary Blood 12/13/23 08:11 Blood Culture - Preliminary Blood 12/11/23 14:36 Blood Culture Gram Stain - Final Blood Blood Culture - Final Staphylococcus aureus Assessment and Plan (1) MSSA bacteremia Current Visit: Yes Status: Acute Code(s): R78.81 - BACTEREMIA; B95.61 - METHICILLIN SUSCEP STAPH INFCT CAUSING DIS CLASSD [id number] SNOMED Code(s): 709232171 Plan: 1patient with bacteremia one of the blood which grew staph epi could be a skin contaminant however patient is also growing Staph aureus which is never a contaminant source could be skin and soft tissue as the patient did have multiple scratches and bite spence on the upper back area and so far workup has been negative for any deep infection chest x-ray was negative echocardiogram did not show any evidence of vegetation abdominal soft on clinical examination 2-blood cultures has been repeated to document clearance of bacteremia, WBC scan negative 3-cefazolin 2 g every 8 hour plan will be for a midline once he clear his bacteremia Dictation was produced using [employer] dictation software. please excuse any grammatical, word or spelling errors. Time with Patient: Less than 30
--- NOTE | 2023-12-16 17:35 | P.PN ---
Subjective Progress Note Date: 12/16/23 Principal diagnosis: Reason for follow-up is MSSA bacteremia Patient is a 63-year-old male past medical history significant for hypertension hyperlipidemia atrial fibrillation previous history of MRSA infection to the hand presenting to the hospital for 10/20/2023 after apparently the patient did have a seizure activity, patient also have a positive blood culture with MSSA prompting this consultation. On today's evaluation that is 12/16/2023,the patient remains to be afebrile, patient is on room air not requiring supplemental oxygen and denies any shortness of breath no chest pain or cough.Patient denies having any nausea or vomiting, no abdominal pain and no diarrhea has been reported. No new diet has been obtained today blood culture repeat has been negative so far Objective - Vital Signs Vital signs: Vital Signs Temp 98.3 F 12/16/23 16:00 Pulse 60 12/16/23 16:00 Resp 20 12/16/23 16:00 BP 114/68 12/16/23 16:00 Pulse Ox 100 12/16/23 16:00 FiO2 Intake & Output 12/15/23 12/16/23 12/16/23 18:59 06:59 18:59 Intake Total 20 758 Balance 20 758 Weight 58.967 kg Intake: IV 20 Invasive Line 4 20 Intake, IV Titration 100 Amount ceFAZolin 2 gm In Sodium 100 Chloride 0.9% 50 ml @ 100 mls/hr IVPB Q8HR [facility] Rx# :[id number] Oral 658 Other: Voiding Method Toilet Toilet # Voids 2 2 - Exam GENERAL DESCRIPTION: An elderly male lying in bed in no distress RESPIRATORY SYSTEM: Unlabored breathing , decreased breath sounds at bases HEART: S1 S2 regular rate and rhythm , ABDOMEN: Soft , no tenderness EXTREMITIES: No edema feet - Labs CBC & Chem 7: 12/15/23 06:52 12/15/23 06:52 Labs: Microbiology - Last 24 Hours (Table) 12/13/23 08:11 Blood Culture - Preliminary Blood 12/10/23 08:30 Blood Culture - Final Blood Assessment and Plan (1) MSSA bacteremia Current Visit: Yes Status: Acute Code(s): R78.81 - BACTEREMIA; B95.61 - METHICILLIN SUSCEP STAPH INFCT CAUSING DIS CLASSD ELSR SNOMED Code(s): 115832481 Plan: 1patient with bacteremia one of the blood which grew staph epi could be a skin contaminant however patient is also growing Staph aureus which is never a contaminant source could be skin and soft tissue as the patient did have multiple scratches and bite spence on the upper back area and so far workup has been negative for any deep infection chest x-ray was negative echocardiogram did not show any evidence of vegetation abdominal soft on clinical examination 2-WBC scan negative and the patient to be blood culture has been negative 3-patient to continue with cefazolin we will get a midline in the a.m. plan is for total course of IV cefazolin on discharge Dictation was produced using [employer] dictation software. please excuse any grammatical, word or spelling errors. Time with Patient: Less than 30
--- NOTE | 2023-12-17 00:51 | P.PN ---
Subjective Progress Note Date: 12/16/23 Patient was seen for follow-up. Patient is laying in the bed. He appears very comfortable. States he is back to normal. Patient denies any headache at this time. No fever or chills. Patient has positive blood cultures therefore still in the hospital. ID has been consulted. Patient currently on cefazolin. Patient has multiple small wounds on the body. One of them is in the posterior neck region, which he states that sometimes drains. No real abscess was noticed. Also has some rash over the left thigh region, and smaller area in the right thigh region. Overall it appears more like herpetic lesion, but it is bilateral. Patient believes these lesions are from from the wasp stung, when it happened while he was working outside. Objective - Vital Signs Vital signs: Vital Signs Temp 98.2 F 12/16/23 19:24 Pulse 74 12/16/23 19:24 Resp 16 12/16/23 19:24 BP 136/74 12/16/23 19:24 Pulse Ox 97 12/16/23 19:24 FiO2 Intake & Output 12/16/23 12/16/23 12/17/23 06:59 18:59 06:59 Intake Total 758 Balance 758 Intake: Intake, IV Titration 100 Amount ceFAZolin 2 gm In Sodium 100 Chloride 0.9% 50 ml @ 100 mls/hr IVPB Q8HR [facility] Rx# :[id number] Oral 658 Other: Voiding Method Toilet Toilet # Voids 2 - Exam Patient's mental status, speech and language functions are normal. Affect is normal. Rest of the examination is nonfocal. - Labs CBC & Chem 7: 12/15/23 06:52 12/15/23 06:52 Labs: Microbiology - Last 24 Hours (Table) 12/11/23 14:44 Blood Culture - Final Blood 12/13/23 08:11 Blood Culture - Preliminary Blood Assessment and Plan Assessment: * New onset seizure with prolonged postictal state. Exact cause of seizure remains uncertain. Possibly due to metabolic encephalopathy, which is of multifactorial etiology as mentioned below. 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 * Lactic acidosis, likely due to seizure. * Positive blood cultures with presumptive Staph aureus. Exact source is uncertain. * Rhabdomyolysis, likely due to seizure. Most recent CPK 657. * Hyponatremia sodium 131, fluctuating, most recent 133 * Elevated troponin 0.255 * Abnormal CT cervical spine, with reported critical stenosis at C3-4 and C5-6. * Marijuana use * Ex tobacco use Plan: * Patient has presented with new onset seizure of unclear etiology. Patient does have mild hyponatremia but probably would not result in a seizure. Patient has been feeling lightheaded and somnolent whole day before seizure. * MRI of the brain with and without contrast was performed, which is normal with no evidence of intracranial mass or acute/subacute infarct. Nonspecific white matter changes, likely secondary to small vessel ischemic disease. I personally reviewed MRI agree with the findings. * EEG 12/10/2023, which is mildly abnormal due to intermittent background slowing, suggestive of mild encephalopathy. No focal, lateralized or epileptiform activity was seen. * As patient's workup is normal including EEG and MRI, therefore recommendation is not to place on antiepileptic medication. * Patient was suggested that if he wants further testing, he may follow-up with neurologist and undergo prolonged, 2-1/2 or even 24 hours EEG for further evaluation. * We discussed about lumbar puncture, but patient is currently on Eliquis for atrial fibrillation. MRI of the brain normal. Patient's headache has resolved. Do not believe need for lumbar puncture at this time. ID also following. * If he has a second unprovoked seizure, then would be an indication for antiepileptic medication. * Patient and his were informed of [place] state law of no driving unless seizure-free for 6 months, climbing ladders, operating dangerous machinery or unsupervised swimming. * Patient was recommended to avoid seizure triggers like sleep deprivation, alcohol or use of any medication that lowers seizure threshold. Patient denies any alcohol use. * MRI of the cervical spine revealed no evidence of disc herniation. Moderate disc degeneration with associated osteoarthritic changes with multilevel neural foraminal stenosis worse at C5-6 with severe bilateral, C4-5 with moderate right, moderate to severe right C3-4. Moderate spinal canal stenosis at C4-5, however cord signal is maintained. I personally reviewed MRI agree with the findings. Patient may follow-up with orthopedic spine as needed, outpatient. * 2D echo revealed normal left ventricular systolic function with impaired relaxation. EF is 55 to 60%. Grade 1 diastolic dysfunction. No obvious regional wall motion abnormalities. Mildly increased left atrial volume. * Carotid Doppler revealed less than 50% stenosis of the right carotid bifurcation. 50 to 69% stenosis of the left carotid bifurcation. Antegrade flow in both vertebral arteries. * Recommend follow-up carotid Doppler in 6 months. * Patient on Eliquis. * Patient has positive blood cultures and Staph aureus is suspected. Infectious disease on board. Patient on cefazolin. WBC scan negative. * Patient has rhabdomyolysis, most recent CPK 2258. Most recent 657. * Cardiology input appreciated. Patient was initially placed on heparin for elevated cardiac enzymes. Now the heparin has been discontinued and patient started on Eliquis 5 mg twice daily. Aspirin has been discontinued by cardiology due to hematuria. Start Pepcid. * Neurologically, no further workup indicated. We will sign off. Please reconsult neurology if any concerns. Dr. Mercedes starting service in the morning.
[2023-12-17 07:23] LABS: African American GFR (CKD) >90 (>60 ml/min/1.73 sqM); Anion Gap 5 mmol/L; Blood Urea Nitrogen 26 mg/dL (9-20); Calcium 8.8 mg/dL (8.4-10.2); Carbon Dioxide 27 mmol/L (22-30); Chloride 102 mmol/L (98-107); Glucose 147 mg/dL (74-99); Non-African American GFR(CKD) >90 (>60 ml/min/1.73 sqM); Potassium 3.6 mmol/L (3.5-5.1); Sodium 134 mmol/L (137-145)
[2023-12-17] MEDS: FAMOTIDINE 20 MG TAB PO SCH (08:36)
[2023-12-17 10:34] VITALS: TEMP 98.2
--- NOTE | 2023-12-17 11:14 | P.DS ---
Providers Date of admission: 12/10/23 07:50 Expected date of discharge: 12/17/23 Attending physician: Felicity Kurtz MD Consults: 12/10/23 05:31 Consult Physician Urgent Consulting Provider: Justus Mercedes Consult Reason/Comments: new onset seizure Do you want consulting provider notified?: Already Contacted 12/13/23 08:24 Consult Physician Routine Consulting Provider: Michelle Stanford Consult Reason/Comments: bacteremia Do you want consulting provider notified?: Yes 12/14/23 10:43 Consult Physician Routine Consulting Provider: Marcial Tomas Consult Reason/Comments: afib Do you want consulting provider notified?: Already Contacted Primary care physician: Laly Mijares Hospital Course: Discharge Diagnosis: MSSA bacteremia New onset seizures Acute rhabdomyolysis Atrial fibrillation with RVR Elevated troponin, likely secondary to acute rhabdo Hypertension Cervical spinal canal stenosis Carotid stenosis Leukocytosis Lactic acidosis Hypokalemia Hospital Course: 63-year-old male with history of hypertension, CAD status post stent, A-fib, hypertension, dyslipidemia presented after witnessed seizure. Head/C-spine CT in the emergency room revealed no acute abnormalities aside from cervical spine stenosis at C3-4 and C5-6 with MRI C-spine recommended. EKG revealed A-fib at 131 bpm with findings consistent with LVH. Chest x-ray was unremarkable. Laboratory evaluation was remarkable for leukocytosis of 14.1, VBG pH 7.18, sodium 131, chloride 97, CO2 less than 5, lactic acid 16.1, with urine toxicology positive for marijuana. Patient also had elevated troponin, CK elevated at 3000. Started on IV fluids, heparin drip, cardiology consulted. Renal function stable. EEG did not show any epileptiform activity. Echo showed EF55-60% with G1DD. MRI brain and C-spine showed no acute infarct moderate spinal canal stenosis C4-C5. Patient started on Eliquis and heparin drip discontinued. Initial blood cultures coagulase negative staph, repeat blood c ultures are positive for presumptive staph. Patient started on Cefzolin 1g IV TID and ID consulted. ID recommended WBC scan, which was normal. Midline placed. Patient being discharged home with IV antibiotics. CK down trended with IV fluids. Renal function stable. Outpatient follow-up with neurology, cardiology, vascular surgery. Patient seen and examined at bedside. Vital signs reviewed and stable. General: Nontoxic, no distress, appears at stated age Derm: Warm, dry Head: Atraumatic, normocephalic, symmetric Eyes: EOMI, no lid lag, anicteric sclera Mouth: No lip lesion, mucus membranes moist Cardiovascular: S1S2 reg, no murmur Lungs: CTA bilateral, no rhonchi, no rales, no accessory muscle use Abdominal: Soft, nontender to palpation, no guarding, no appreciable organomegaly Ext: No gross muscle atrophy, no edema, no contractures Neuro: CN II-XI grossly intact, no focal neuro deficits Psych: Alert, oriented, appropriate affect A total of 33 minutes of time were spent preparing this complex discharge summary. Patient was discharged on 12/17/2023 at 1025. Patient Condition at Discharge: Serious Plan - Discharge Summary Discharge Rx Participant: Yes New Discharge Prescriptions: New Metoprolol Tartrate [Lopressor] 50 mg PO BID #90 tab Apixaban [Eliquis] 5 mg PO BID #90 tab ceFAZolin [Kefzol] 2 gm IVP Q8HR 10 Days ml Continue Atorvastatin [Lipitor] 20 mg PO HS Venlafaxine HCl [Effexor XR] 150 mg PO DAILY Lisinopril-Hctz 20-25 mg [Zestoretic 20-25] 1 tab PO DAILY Omeprazole Magnesium [PriLOSEC OTC] 20 mg PO DAILY amLODIPine [Norvasc] 10 mg PO DAILY Aspirin 81 mg PO DAILY Discontinued Clopidogrel [Plavix] 75 mg PO DAILY Discharge Medication List Atorvastatin [Lipitor] 20 mg PO HS 05/05/19 [History] Venlafaxine HCl [Effexor XR] 150 mg PO DAILY 02/09/20 [History] Aspirin 81 mg PO DAILY 12/10/23 [History] Lisinopril-Hctz 20-25 mg [Zestoretic 20-25] 1 tab PO DAILY 12/10/23 [History] Omeprazole Magnesium [PriLOSEC OTC] 20 mg PO DAILY 12/10/23 [History] amLODIPine [Norvasc] 10 mg PO DAILY 12/10/23 [History] Apixaban [Eliquis] 5 mg PO BID #90 tab 12/17/23 [Rx] Metoprolol Tartrate [Lopressor] 50 mg PO BID #90 tab 12/17/23 [Rx] ceFAZolin [Kefzol] 2 gm IVP Q8HR 10 Days ml 12/17/23 [Rx] Follow up Appointment(s)/Referral(s): Marcial Tomas MD [STAFF PHYSICIAN] - 1 Week Manuel Díaz MD [REFERRING] - 1 Week Laly Mijares MD [Primary Care Provider] - 1-2 days Sav Marquez DO [STAFF PHYSICIAN] - 1 Week [facility], [REFERRING] - [facility] Visiting Nurse, [NON-STAFF] - Patient Instructions/Handouts: Seizure/Epilepsy Discharge Instructions & Follow-Up, A-fib (Atrial Fibrillation) (DC) Activity/Diet/Wound Care/Special Instructions: [place] state law of no driving unless seizure-free for 6 months, Do not climbing ladders, operating dangerous machinery or swim unsupervised . Discharge Disposition: HOME WITH HOME HEALTH SERVICES
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
[2023-12-17 13:37] VITALS: BP 119/64; PULSE 49; RESP 18
--- NOTE | 2023-12-19 11:35 | CDI ---
Documentation Clarification Form Date: 12/19/2023 From: Deisy Olmstead Admit Date: 12/10/2023 07:50:00 AM Patient Name: Reagan Lloyd Visit Number: [id number] Discharge Date: 12/17/2023 04:19:00 PM ATTENTION: The Clinical Documentation Specialists (CDI) and [facility] Coding Staff appreciate your assistance in clarifying documentation. Please respond to the clarification below the line at the bottom and electronically sign. The CDI & [facility] Coding staff will review the response and follow-up if needed. Please note: Queries are made part of the Legal Health Record. If you have any questions, please contact the author of this message via ITS. Dr. Wayne Toledo, Your patient has troponin level(s) of: 12/09 - 0.017, 0.255, 0.244. Please clarify if there is an additional diagnosis and/or clinical significance related to this value. Patient history/risk factors: seizure, metabolic encephalopathy, acidosis, hyponatremia, typical atrial flutter, HTN, PAF Clinical indicators: Per DS, Elevated troponin, likely secondary to acute rhabdo. PN 12/11, likely nonischemic. Treatment: IV Cardizem, monitor BMP Is there an additional diagnosis and/or clinical significance related to the above lab result/information: [ ] Type 2 NV due to (specify cause ____) [ ] Non-ischemic with acute myocardial injury [ ] No additional diagnosis/Not clinically significant [ x ] Other, please specify ___elevated troponin without acute myocardial injury [ ] Unable to determine __ Reference: [employer] Fourth [place] Definition of Myocardial Infraction Elevated Cardiac Troponin >99th percentile with Troponin rise and/or fall With Acute ischemia Acute Myocardial Infarction Atherosclerosis thrombosis Type I NV Oxygen supply and demand imbalance Type II NV (Please indicate etiology) Without acute ischemia Acute Myocardial Injury MTDD
--- NOTE | 2023-12-19 11:48 | CDI ---
Documentation Clarification Form Date: 12/19/2023 From: Deisy Olmstead Admit Date: 12/10/2023 07:50:00 AM Patient Name: Reagan Lloyd Visit Number: [id number] Discharge Date: 12/17/2023 04:19:00 PM ATTENTION: The Clinical Documentation Specialists (CDI) and [facility] Coding Staff appreciate your assistance in clarifying documentation. Please respond to the clarification below the line at the bottom and electronically sign. The CDI & [facility] Coding staff will review the response and follow-up if needed. Please note: Queries are made part of the Legal Health Record. If you have any questions, please contact the author of this message via ITS. Dr. Wayne Toldeo, There is documentation of bacteremia is documented in 12/12 PN. Bacteremia is considered a lab finding. Additional clarification regarding bacteremia is requested. Patient history/risk factors: seizure, metabolic encephalopathy, acidosis, hyponatremia, typical atrial flutter, HTN, PAF Clinical Indicators: T 12/09 99.5, P 124, 141, 135,142,142, R 12/09 16, 27, 26, 24, 21 WBC: 12/09 14.1 & 18.0 Left Shift: 11.1 & 15.6 Lactic acid: 16.1 Blood Culture: 12/09 coagulase negative Staph molecular ID 12/09 Staphylococcus aureus 12/[address] Stanford - patient withbacteremiaone of the blood which grewstaphepi could be a skin contaminant however patient is also growingStaphaureus which is never a contaminant sourcecould beskin and soft tissue as the patient did have multiple scratches andbitemarks on the upper back area and so far workuphas been negative forany deepinfectionchest x-raywas negativeechocardiogramdid not show any evidence ofvegetationabdominal soft on clinical examination Treatment: Midline cath placed, IV Kefzol for days Please provide additional clarification regarding the etiology/cause and/or clinical significance of the bacteremia: [ ] Bacteremia is related to sepsis, POA [ ] Bacteremia is related to sepsis, Not POA [x ] Bacteremia is due to infectious process, please specify: __with likely source being skin infection___ [ ] Bacteremia is not clinically significant [ ] Other, please specify [ ] Unable to determine MTDD
--- NOTE | 2023-12-24 14:06 | P.PN ---
Subjective Progress Note Date: 12/17/23 Principal diagnosis: Reason for follow-up is MSSA bacteremia Patient is a 63-year-old male past medical history significant for hypertension hyperlipidemia atrial fibrillation previous history of MRSA infection to the hand presenting to the hospital for 10/20/2023 after apparently the patient did have a seizure activity, patient also have a positive blood culture with MSSA prompting this consultation. On today's evaluation that is 12/17/2023, Patient is afebrile patient is currently on room air and denies having any shortness of breath, the patient denies any chest pain or cough, the patient denies any nausea vomiting did not have any abdominal pain and no diarrhea, feeling better wants to go home. Patient did have a creatinine 0.66 blood culture repeat from 12/11/2023 as well as 12/13/2023 has been negative Objective - Vital Signs Vital signs: Vital Signs Temp 98.2 F 12/17/23 08:35 Pulse 97 12/17/23 08:35 Resp 17 12/17/23 08:35 BP 132/67 12/17/23 08:35 Pulse Ox 99 12/17/23 08:35 FiO2 Intake & Output 12/16/23 12/17/23 12/17/23 18:59 06:59 18:59 Intake Total 758 Balance 758 Intake: Intake, IV Titration 100 Amount ceFAZolin 2 gm In Sodium 100 Chloride 0.9% 50 ml @ 100 mls/hr IVPB Q8HR ON LICENSE OF [facility] Rx# :[id number] Oral 658 Other: Voiding Method Toilet Toilet # Voids 1 - Exam GENERAL DESCRIPTION: An elderly male lying in bed in no distress RESPIRATORY SYSTEM: Unlabored breathing , decreased breath sounds at bases HEART: S1 S2 regular rate and rhythm , ABDOMEN: Soft , no tenderness EXTREMITIES: No edema feet - Labs CBC & Chem 7: 12/15/23 06:52 12/17/23 06:37 Labs: Abnormal Lab Results - Last 24 Hours (Table) 12/17/23 Range/Units 06:37 Sodium 134 L (137-145) mmol/L BUN 26 H (9-20) mg/dL Glucose 147 H (74-99) mg/dL Microbiology - Last 24 Hours (Table) 12/11/23 14:44 Blood Culture - Final Blood 12/13/23 08:11 Blood Culture - Preliminary Blood Assessment and Plan (1) MSSA bacteremia Status: Acute Code(s): R78.81 - BACTEREMIA; B95.61 - METHICILLIN SUSCEP STAPH INFCT CAUSING DIS CLASSD ELSWHR SNOMED Code(s): 420762373 Plan: 1patient with bacteremia one of the blood which grew staph epi could be a skin contaminant however patient is also growing Staph aureus which is never a contaminant source could be skin and soft tissue as the patient did have multip le scratches and bite spence on the upper back area and so far workup has been negative for any deep infection chest x-ray was negative echocardiogram did not show any evidence of vegetation abdominal soft on clinical examination 2-WBC scan negative and the patient to be blood culture has been negative 3-patient did have a midline placement will advise another 10-day course of IV cefazolin on discharge to finish 2-week course from negative blood culture and close outpatient follow-up Dictation was produced using [employer] dictation software. please excuse any grammatical, word or spelling errors. Time with Patient: Less than 30
== END 2023-12-17 16:19 | disposition home health service (06) | DRG 100 ==
LOC: EC 01:19 → 1SOBS 05:32 → OBSVTOIN 07:50 → 3SCARD 12:36
PROVIDERS: ADMIT Internal Medicine; ATTEND Internal Medicine
PROC: 3E033RZ Introduction of Antiarrhythmic into Peripheral Vein, Percutaneous Approach (ICD-10-PCS; principal; 2023-12-10)
PROC: 05HB33Z Insertion of Infusion Device into Right Basilic Vein, Percutaneous Approach (ICD-10-PCS; 2023-12-17 11:20)
DX: R56.9 Unspecified convulsions (principal); G93.41 Metabolic encephalopathy; R78.81 Bacteremia; E87.1 Hypo-osmolality and hyponatremia; E87.20 Acidosis, unspecified; M62.82 Rhabdomyolysis; I48.3 Typical atrial flutter; I10 Essential (primary) hypertension; F10.11 Alcohol abuse, in remission; I65.22 Occlusion and stenosis of left carotid artery; Z95.828 Presence of other vascular implants and grafts; F32.A Depression, unspecified; I48.0 Paroxysmal atrial fibrillation; M48.02 Spinal stenosis, cervical region; L08.9 Local infection of the skin and subcutaneous tissue, unspecified; B95.61 Methicillin susceptible Staphylococcus aureus infection as the cause of diseases classified elsewhere; F12.90 Cannabis use, unspecified, uncomplicated; R73.03 Prediabetes; E87.6 Hypokalemia; I25.10 Atherosclerotic heart disease of native coronary artery without angina pectoris; T63.461A Toxic effect of venom of wasps, accidental (unintentional), initial encounter; R21 Rash and other nonspecific skin eruption; E78.5 Hyperlipidemia, unspecified; R31.9 Hematuria, unspecified; R79.89 Other specified abnormal findings of blood chemistry; Z79.02 Long term (current) use of antithrombotics/antiplatelets; Z79.82 Long term (current) use of aspirin; Z79.899 Other long term (current) drug therapy; Z95.5 Presence of coronary angioplasty implant and graft; Z86.14 Personal history of Methicillin resistant Staphylococcus aureus infection; Z87.891 Personal history of nicotine dependence; Z88.6 Allergy status to analgesic agent
CPT/HCPCS: 36410; 36415; 70450; 70553; 71045; 72125; 72141; 76937; 78306; 80048; 80053; 80143; 80179; 80306; 80320; 81001; 82550; 82803; 83605; 83735; 84443; 84484; 85025; 85027; 85610; 85652; 85730; 86140; 87040; 87077; 87186; 93005; 93306; 93880; 95816; 96361; 96365; 96366; 96372; 96375; 96376; 99285

== ENCOUNTER → 2024-01-02 | Outpatient (CLI) | payer MEDICARE, OTHER | END | disposition home or self-care (01) | LOC: LABWHC1 14:21 | PROVIDERS: ATTEND Internal Medicine Infectious Disease | DX: R78.81 Bacteremia (principal) | CPT/HCPCS: 87040 ==

== ENCOUNTER 2024-01-17 10:16 | Day surgery (SDC) | payer MEDICARE, OTHER ==
[~2024-01-17 10:16] MED LIST: ALPRAZolam 0.25 MG TAB PO PRN; ALPRAZolam 0.5 MG TAB PO PRN; ASPIRIN 325 MG TAB PO STA; ATORVASTATIN 80 MG TAB PO STA; HEPARIN SODIUM,PORCINE (1 ML) 2,500 UNIT in SODIUM CHLORIDE 0.9% 250 ML IRRIGATION PRN; HEPARIN SODIUM,PORCINE 10,000 UNIT in SODIUM CHLORIDE 0.9% 1,000 ML IRRIGATION PRN; NITROGLYCERIN SL TABS 0.4 MG TAB SUBLINGUAL PRN
[2024-01-17 10:47] VITALS: RESP 18; TEMP 98.2
[2024-01-17] MEDS: SODIUM CHLORIDE 0.9% 1,000 ML in EMPTY BAG 1 BAG IV SCH (10:47)
[2024-01-17] MEDS: IV FLUID CONTINUATION 1,000 ML IV ONE (10:47)
[2024-01-17] MEDS ORDERED: LIDOCAINE 1% INJ 10MG/ML (20 ML MDV) ONE (11:38)
[2024-01-17] MEDS ORDERED: VERAPAMIL 2.5 MG/ML 2 ML AMP ONE (11:38)
[2024-01-17] MEDS ORDERED: fentaNYL (PF) 50 MCG/ML 2 ML AMP ONE (11:55)
[2024-01-17] MEDS ORDERED: HEPARIN SODIUM 1,000 UN/ML (10ML VL) ONE (11:59)
[2024-01-17] MEDS: LIDOCAINE 1% INJ 10MG/ML (20 ML MDV) SQ ONE (12:37)
[2024-01-17] MEDS: fentaNYL (PF) 50 MCG/1 ML VIAL IVP ONE (12:38)
[2024-01-17] MEDS: VERAPAMIL 2.5 MG/ML 4 ML VIAL INTRAARTER ONE (12:39)
[2024-01-17] MEDS: NITROGLYCERIN 1000MCG/10ML SYRINGE INTRACORON ONE (12:53)
[2024-01-17] MEDS: IOPAMIDOL-370 100ML BTL INTRATHECA ONE (13:04)
[2024-01-17] MEDS ORDERED: RX INFO: IV CONTRAST WAS GIVEN 1 EACH MISC MISCELLANE PRN (13:07)
--- NOTE | 2024-01-17 13:15 | P.CARDCATH ---
Date of Procedure: 01/17/24 Description of Procedure: Cardiac Catheterization: The patient is a 63-year-old male with known history of hypertension, hyperlipidemia, carotid disease who was found to have episodes of nonsustained ventricular tachycardia as well as paroxysmal atrial fibrillation. Recommendations were made regarding cardiac catheterization, the risks and the complications were discussed with the patient who is in full understanding and agreement. 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 Using Xylocaine Anesthesia and modified Seldinger technique, a 6-Qatari sheath was introduced in the right radial artery . Subsequently, selective coronary angiography was performed using a 5-Qatari 4 bend Paul catheter. Multiple views of the coronary artery including hemiaxial views were obtained. The right Paul catheter was used to cross the aortic valve and LVEDP was calculated. Following that, catheter and sheath were removed. Hemostasis was obtained with deployment of vascular band . There was no immediate complication. Patient was returned to room in stable condition. Of note, the patient received a total of 4000 units of intravenous heparin as well as intra-arterial verapamil. Findings: Fluoroscopy: Mild calcification of the LAD was noted Left main: This is a short size vessel bifurcating into LAD and left circumflex, left main has no high-grade stenosis LAD: This is a large size vessel, reaching to the apex, giving rise to a moderately sized diagonal branch in the midsegment the LAD has mild disease in the midsegment of 20 to 30% with no high-grade stenosis Left circumflex: This is a codominant large size vessel, bifurcating distally to PDA and PLV. Giving rise to 2 obtuse marginal branch. The left circumflex has diffuse intimal disease of 30 to 40%. The takeoff of the second obtuse marginal branch has a 60 to 70% stenosis, it is small in caliber. RCA: This is a codominant vessel, small in caliber. The RCA is diffusely diseased but the caliber of the vessel is small to its course. Left Ventriculogram: Not performed Hemodynamics: There was no gradient across aortic valve, LVEDP was 16-20 mmHg Conclusion: 1. Diffuse mild triple-vessel disease 2. Codominant system 3. Mildly elevated LVEDP Recommendations: The patient will resume his anticoagulation. He will be evaluated for permanent pacemaker implantation possible ablation, aggressive coronary risks modifications will be continued. The findings and the recommendations were discussed with the patient and the family and they were in full understanding and agreement. Duration of sedation is 21 minutes.
[2024-01-17 16:45] VITALS: BP 129/60; PULSE 58
[2024-01-17] MEDS ORDERED: ATORVASTATIN 20 MG TAB PO SCH (21:00)
[2024-01-17] MEDS ORDERED: METOPROLOL TARTRATE 50 MG TAB PO SCH (21:00)
[2024-01-18] MEDS ORDERED: NON FORMULARY DRUG (Omeprazole Magnesium [Prilosec Otc] 20 MG Tablet) PO SCH (09:00)
[2024-01-18] MEDS ORDERED: amLODIPine 10 MG TAB PO SCH (09:00)
[2024-01-18] MEDS ORDERED: VENLAFAXINE HCL ER 150 MG CAP PO SCH (09:00)
[2024-01-18] MEDS ORDERED: LISINOPRIL-HCTZ 20-25 MG 1 EACH TAB PO SCH (09:00)
== END 2024-01-17 16:20 | disposition home or self-care (01) ==
LOC: CATHCVL 10:16
PROVIDERS: ATTEND Internal Medicine Interventional Cardiology
DX: I48.0 Paroxysmal atrial fibrillation (principal); I10 Essential (primary) hypertension; E78.5 Hyperlipidemia, unspecified; I47.20 Ventricular tachycardia, unspecified; Z79.899 Other long term (current) drug therapy
CPT/HCPCS: 93458; 99152; C1769 ×2; C1894; J2001; J1644; Q9967; J3010; J2305

== ENCOUNTER → 2024-02-15 | Outpatient (CLI) | payer MEDICARE, OTHER ==
[2024-02-15 15:46] LABS: BUN/Creat Ratio 18.67 Ratio (12.00-20.00); Blood Urea Nitrogen 16.8 mg/dL (9.0-27.0); Chol/HDL Ratio 3.14 Ratio; Glucose 112 mg/dL (70-110); LDL Cholesterol,Calculated 96.5 mg/dL (0.0-131.0); VLDL Calculation 17.26 mg/dL (5.00-40.00)
[2024-02-15 15:47] LABS: ALT 17 U/L (10-49); AST 17 U/L (14-35); Albumin 4.5 g/dL (3.8-4.9); Albumin/Globulin Ratio 2.05 Ratio (1.60-3.17); Alkaline Phosphatase 68 U/L (41-126); Calcium 9.4 mg/dL (8.7-10.3); Carbon Dioxide 26.1 mmol/L (21.6-31.8); Chloride 94 mmol/L (96-109); Globulin 2.2 g/dL (1.6-3.3); Potassium 4.6 mmol/L (3.5-5.5); Sodium 132 mmol/L (135-145); Total Bilirubin 0.4 mg/dL (0.3-1.2); Total Protein 6.7 g/dL (6.2-8.2)
== END | disposition home or self-care (01) ==
LOC: LABWHC1 10:06
PROVIDERS: ATTEND Internal Medicine Interventional Cardiology
DX: E78.2 Mixed hyperlipidemia (principal)
CPT/HCPCS: 36415; 80053; 80061

== ENCOUNTER 2024-02-18 11:25 | Day surgery (SDC) | payer MEDICARE, OTHER ==
[2024-02-12 15:17] VITALS: BMI 24.3
[2024-02-18] MEDS: SODIUM CHLORIDE 0.9% 1,000 ML IV SCH (12:17)
[2024-02-18] MEDS: IV FLUID CONTINUATION 1,000 ML IV ONE (12:30)
[2024-02-18 12:45] LABS: African American GFR (CKD) >90 (>60 ml/min/1.73 sqM); Anion Gap 7 mmol/L; Blood Urea Nitrogen 17 mg/dL (9-20); Calcium 9.4 mg/dL (8.4-10.2); Carbon Dioxide 26 mmol/L (22-30); Chloride 102 mmol/L (98-107); Glucose 111 mg/dL (74-99); Non-African American GFR(CKD) >90 (>60 ml/min/1.73 sqM); Potassium 4.6 mmol/L (3.5-5.1); Sodium 135 mmol/L (137-145)
[2024-02-18 13:01] LABS: Basophils # (A) 0.1 k/uL (0-0.2); Basophils % (A) 1 %; Eosinophils # (A) 0.1 k/uL (0-0.7); Eosinophils % (A) 1 %; HCT 46.7 % (39.0-53.0); HGB 15.2 gm/dL (13.0-17.5); Lymphocytes # (A) 1.8 k/uL (1.0-4.8); Lymphocytes % (A) 26 %; MCH 31.2 pg (25.0-35.0); MCHC 32.6 g/dL (31.0-37.0); MCV 95.7 fL (80.0-100.0); Monocytes # (A) 0.5 k/uL (0-1.0); Monocytes % (A) 7 %; Neutrophils # (A) 4.3 k/uL (1.3-7.7); Neutrophils % (A) 62 %; Platelet Count 168 k/uL (150-450); RBC 4.88 m/uL (4.30-5.90); RDW 13.2 % (11.5-15.5); WBC 6.9 k/uL (3.8-10.6)
[2024-02-18] MEDS: IOPAMIDOL-370 100ML BTL INJ ONE (14:47)
[2024-02-18] MEDS ORDERED: LIDOCAINE 1% INJ 10MG/ML (20 ML MDV) ONE ×2 (15:23→15:48)
[2024-02-18] MEDS: LIDOCAINE 1% INJ 10MG/ML (20 ML MDV) SQ ONE (15:31)
[2024-02-18] MEDS: ceFAZolin 1 GM in SODIUM CHLORIDE 0.9% IRRIG BTL 250 ML IRRIGATION PRN (17:02)
[2024-02-18] MEDS ORDERED: ACETAMINOPHEN TAB 325 MG TAB PO PRN (17:02)
[2024-02-18] MEDS: hydrALAZINE HCL 50 MG TAB PO STA (17:35)
[2024-02-18] MEDS: ACETAMINOPHEN IV (For NPO) 1,000 MG in EMPTY BAG 1 BAG IVPB ONE (19:00)
[2024-02-18] MEDS: ATORVASTATIN 20 MG TAB PO SCH (19:46)
[2024-02-18] MEDS: METOPROLOL TARTRATE 50 MG TAB PO SCH (19:46)
[2024-02-19 02:35] VITALS: RESP 16
[2024-02-19] MEDS: PANTOPRAZOLE 40 MG TABLET PO SCH (05:26)
[2024-02-19 07:04] VITALS: BP 162/81; TEMP 98.2
--- NOTE | 2024-02-19 08:21 | XR ---
EXAMINATION TYPE: XR chest 2V DATE OF EXAM: 02/19/2024 6:47 AM CLINICAL INDICATION:Male, 63 years old with history of Lead placement check; [facility] COMPARISON: 12/10/2023 TECHNIQUE: XR chest 2V Frontal view of the chest. FINDINGS: Lungs/Pleura: There is no evidence of pleural effusion, focal consolidation, or pneumothorax. Pulmonary vascularity: Unremarkable. Heart/mediastinum: Cardiomediastinal silhouette is unremarkable. Two lead cardiac conduction device o verlying the left hemithorax with lead tips projecting over the right ventricle and right atrium. Musculoskeletal: No acute osseous pathology. IMPRESSION: * No acute cardiopulmonary disease/process. * Cardiac conduction leads in appropriate position.
[2024-02-19] MEDS: VENLAFAXINE HCL ER 150 MG CAP PO SCH (09:41)
[2024-02-19] MEDS: APIXABAN 5 MG TAB PO SCH (09:41)
[2024-02-19] MEDS: amLODIPine 10 MG TAB PO SCH (09:41)
[2024-02-19] MEDS: LISINOPRIL-HCTZ 20-25 MG 1 EACH TAB PO SCH (09:41)
[2024-02-19 09:47] VITALS: PULSE 80
--- NOTE | 2024-02-19 12:56 | P.EPPROC ---
- EP Procedure Note Electrophysiology Procedure Note: Patient is doing well. He is looks comfortable no chest pain dizziness lightheadedness No hematoma On examination heart sounds are normal Breath sounds are clear Normal blood pressure Impression Significant sick sinus syndrome with sinus pauses greater than 7 seconds, sinus arrest, symptomatic Continues to have dizzy spells Successful dual-chamber pacemaker with left bundle pacing Selective left bundle pacing achieved with excellent thresholds Device interrogation this morning reveals normal device function Chest x-ray shows stable lead positions Plan Increase metoprolol to 50 mg twice daily Continue all other medication Follow-up with device clinic in 1 week and follow-up with Dr. Tomas as before
== END 2024-02-19 12:23 | disposition home or self-care (01) ==
LOC: CATHEP 11:25 → 6NMEDSUR 18:02 → CATHEP 02-19 12:23
PROVIDERS: ATTEND Internal Medicine Clinical Cardiac Electrophysiology
DX: R00.1 Bradycardia, unspecified (principal); I49.5 Sick sinus syndrome; I48.0 Paroxysmal atrial fibrillation; I73.9 Peripheral vascular disease, unspecified; I10 Essential (primary) hypertension; E78.2 Mixed hyperlipidemia; I65.29 Occlusion and stenosis of unspecified carotid artery; I47.20 Ventricular tachycardia, unspecified; G47.33 Obstructive sleep apnea (adult) (pediatric); Z82.49 Family history of ischemic heart disease and other diseases of the circulatory system; Z88.6 Allergy status to analgesic agent; Z87.891 Personal history of nicotine dependence; Z79.899 Other long term (current) drug therapy; Z79.01 Long term (current) use of anticoagulants; Z79.82 Long term (current) use of aspirin
CPT/HCPCS: 93005; 80048; 85025; 71046; 33208; C1769 ×2; C1730; C1887; C1892; C1898; J0690 ×2; J2001; J0131; Q9967

== ENCOUNTER 2024-04-24 12:10 | Inpatient (IN) | payer MEDICARE, OTHER ==
--- NOTE | 2024-04-24 12:33 | ED ---
General Adult HPI - General Stated complaint: Weakness Time Seen by Provider: 04/24/24 12:11 Source: patient, family, RN/MD, RN notes reviewed Mode of arrival: EMS Limitations: no limitations - History of Present Illness Initial comments: Patient is a 64-year-old male present to the emergency department not feeling well. Patient has been very fatigued and limited activity for the past 3 days. Patient has had nausea and vomiting. Patient has had fever up to 102. Occasional cough. - Related Data Home Medications Medication Instructions Recorded Confirmed Atorvastatin [Lipitor] 20 mg PO HS 05/05/19 04/24/24 Venlafaxine HCl [Effexor XR] 150 mg PO DAILY 02/09/20 04/24/24 Lisinopril-Hctz 20-25 mg 1 tab PO DAILY 12/10/23 04/24/24 [Zestoretic 20-25] Acetaminophen Tab [Tylenol Tab] 500 mg PO Q6H PRN 04/24/24 04/24/24 Omeprazole 20 mg PO DAILY 04/24/24 04/24/24 amLODIPine [Norvasc] 5 mg PO DAILY 04/24/24 04/24/24 Previous Rx's Medication Instructions Recorded Apixaban [Eliquis] 5 mg PO BID #90 tab 12/17/23 Metoprolol Tartrate [Lopressor] 50 mg PO BID #180 tab 02/18/24 Allergies Allergy/AdvReac Type Severity Reaction Status Date / Time naproxen [From Naprosyn] Allergy Rash/Hives Verified 04/24/24 12:41 Review of Systems ROS Statement: Those systems with pertinent positive or pertinent negative responses have been documented in the HPI. ROS Other: All systems not noted in ROS Statement are negative. Constitutional: Reports: fever, chills Eyes: Denies: eye pain ENT: Denies: ear pain Respiratory: Reports: cough Cardiovascular: Denies: chest pain Endocrine: Reports: fatigue Gastrointestinal: Reports: nausea, vomiting Genitourinary: Denies: dysuria Musculoskeletal: Denies: back pain Past Medical History Past Medical History: Atrial Fibrillation, Chest Pain / Angina, GERD/Reflux, Hyperlipidemia, Hypertension Additional Past Medical History / Comment(s): SEE DR. ZAMORA'S H&P. Borderline diabetic. History of Any Multi-Drug Resistant Organisms: MRSA Date of last positivie culture/infection: 02/09/20 MDRO Source:: HAND MRSA Past Surgical History: Cholecystectomy, Heart Catheterization, Heart Catheterization With Stent, Orthopedic Surgery Additional Past Surgical History / Comment(s): Carotid stent right side, fx femur repair Past Anesthesia/Blood Transfusion Reactions: No Reported Reaction Date of Last Stent Placement:: 2007 Smoking Status: Never smoker - Past Family History Mother Family Medical History: CVA/TIA Additional Family Medical History / Comment(s): of stroke Father Family Medical History: Coronary Artery Disease (CAD) Additional Family Medical History / Comment(s): of heart attack General Exam Limitations: no limitations General appearance: alert, in no apparent distress Head exam: Present: normocephalic Eye exam: Present: normal appearance Neck exam: Present: normal inspection Respiratory exam: Present: normal lung sounds bilaterally Cardiovascular Exam: Present: tachycardia GI/Abdominal exam: Present: soft. Absent: distended, tenderness Extremities exam: Present: normal inspection Neurological exam: Present: alert Psychiatric exam: Present: normal affect, normal mood Skin exam: Present: normal color Course Vital Signs 04/24/24 12:14 Temperature 97.1 F L Pulse Rate 140 H Respiratory 18 Rate Blood Pressure 121/95 O2 Sat by Pulse 99 Oximetry EKG Findings - EKG Results: EKG: interpreted by ERMD (Flutter with a rate of 145 lateral T wave inversion inferior T wave inversion), normal QRS Medical Decision Making - Medical Decision Making Was pt. sent in by a medical professional or institution (GENTRY Castaneda, MULTI DISCIPLINED LANGUAGE ANALYST, urgent care, hospital, or [place] health care facility...) When possible be specific @ -No Did you speak to anyone other than the patient for history (EMS, parent, family, police, friend...)? What history was obtained from this source @ - is present helps provide history including patient's symptoms over the past 3 days Did you review nursing and triage notes (agree or disagree)? Why? @ -I reviewed and agree with nursing and triage notes Were old charts reviewed (outside hosp., previous admission, EMS record, old EKG, old radiological studies, urgent care reports/EKG's, [place] health care facility records)? Report findings @ -Previous chest x-ray reviewed with similar findings Differential Diagnosis (chest pain, altered mental status, abdominal pain women, abdominal pain men, vaginal bleeding, weakness, fever, dyspnea, syncope, headache, dizziness, GI bleed, back pain, seizure, CVA, palpatations, mental health, musculoskeletal)? @ -Differential Weakness: Hypoglycemia, shock, sepsis, hyponatremia, anemia, infection, MO, ETOH, adverse medicine reaction, overdose, stroke, this is not meant to be an all-inclusive list. EKG interpreted by me (3pts min.). @ -As above X-rays interpreted by me (1pt min.). @ -X-ray shows no acute process CT interpreted by me (1pt min.). @ -None done U/S interpreted by me (1pt. min.). @ -None done What testing was considered but not performed or refused? (CT, X-rays, U/S, labs)? Why? @ -Patient complains of some abdominal discomfort however abdomen is nontender. Patient has reported fever, none in the emergency department. CT scan of abdomen and pelvis will be ordered What meds were considered but not given or refused? Why? @ -None Did you discuss the management of the patient with other professionals (professionals i.e. , PA, MULTI DISCIPLINED LANGUAGE ANALYST, lab, RT, psych nurse, social media strategist, benefit specialist, teacher, multisensor intelligence officer, piano case maker)? Give summary @ -[facility] Sheet who will admit covering hospital call Was smoking cessation discussed for >3mins.? @ -No Was critical care preformed (if so, how long)? @ -32 minutes critical care time Were there social determinants of health that impacted care today? How? (Homelessness, low income, unemployed, alcoholism, drug addiction, transportation, low edu. Level, literacy, decrease access to med. care, half-way, r ehab)? @ -No Was there de-escalation of care discussed even if they declined (Discuss DNR or withdrawal of care, Hospice)? DNR status @ -No What co-morbidities impacted this encounter? (DM, HTN, Smoking, COPD, CAD, Cancer, CVA, ARF, Chemo, Hep., AIDS, mental health diagnosis, sleep apnea, morbid obesity)? @ -None Was patient admitted / discharged? Hospital course, mention meds given and route, prescriptions, significant lab abnormalities, going to OR and other pertinent info. @ -Patient presents with fatigue and generalized weakness as well as decreased oral intake. Patient is dehydrated. Patient has A-flutter w RVR. Cardizem will be started. Patient will be admitted. Admission orders written. Consults placed Undiagnosed new problem with uncertain prognosis? @ -No Drug Therapy requiring intensive monitoring for toxicity (Heparin, Nitro, Insulin, Cardizem)? @ -Cardizem drip Were any procedures done? @ -No Diagnosis/symptom? @ -A flutter with RVR , dehydration Acute, or Chronic, or Acute on Chronic? @ -, Acute Uncomplicated (without systemic symptoms) or Complicated (systemic symptoms)? @ -Complicated with dehydration Side effects of treatment? @ -No Exacerbation, Progression, or Severe Exacerbation? @ -No Poses a threat to life or bodily function? How? (Chest pain, USA, MO, pneumonia, PE, COPD, DKA, ARF, appy, cholecystitis, CVA, Diverticulitis, Homicidal, Marina cidal, threat to staff... and all critical care pts) @ -To cardiac function and renal function - Lab Data Result diagrams: 04/24/24 12:45 04/24/24 12:45 Lab Results 04/24/24 04/24/24 04/24/24 Range/Units 12:45 12:45 12:45 WBC 10.0 (3.8-10.6) k/uL RBC 6.23 H (4.30-5.90) m/uL Hgb 19.1 H* D (13.0-17.5) gm/dL Hct 57.6 H* (39.0-53.0) % MCV 92.5 (80.0-100.0) fL MCH 30.7 (25.0-35.0) pg MCHC 33.2 (31.0-37.0) g/dL RDW 12.9 (11.5-15.5) % Plt Count 290 (150-450) k/uL MPV 8.3 Neutrophils % 70 % Lymphocytes % 21 % Monocytes % 6 % Eosinophils % 1 % Basophils % 0 % Neutrophils # 7.0 (1.3-7.7) k/uL Lymphocytes # 2.1 (1.0-4.8) k/uL Monocytes # 0.6 (0-1.0) k/uL Eosinophils # 0.1 (0-0.7) k/uL Basophils # 0.0 (0-0.2) k/uL PT (10.0-12.5) sec INR (<1.2) APTT (22.0-30.0) sec Sodium 133 L (137-145) mmol/L Potassium 5.2 H (3.5-5.1) mmol/L Chloride 98 (98-107) mmol/L Carbon Dioxide 22 (22-30) mmol/L Anion Gap 13 mmol/L BUN 36 H (9-20) mg/dL Creatinine 1.03 (0.66-1.25) mg/dL Est GFR (CKD-EPI)AfAm 88 (>60 ml/min/1.73 sqM) Est GFR (CKD-EPI)NonAf 76 (>60 ml/min/1.73 sqM) Glucose 161 H (74-99) mg/dL Plasma Lactic Acid Abdias 2.6 H* (0.7-2.0) mmol/L Calcium 9.8 (8.4-10.2) mg/dL Total Bilirubin 1.5 H (0.2-1.3) mg/dL AST 34 (17-59) U/L ALT 21 (4-49) U/L Alkaline Phosphatase 65 (38-126) U/L Total Protein 7.5 (6.3-8.2) g/dL Albumin 4.7 (3.5-5.0) g/dL Influenza Type A (PCR) (Not Detectd) Influenza Type B (PCR) (Not Detectd) RSV (PCR) (Not Detectd) SARS-CoV-2 (PCR) (Not Detectd) 04/24/24 04/24/24 Range/Units 13:22 14:13 WBC (3.8-10.6) k/uL RBC (4.30-5.90) m/uL Hgb (13.0-17.5) gm/dL Hct (39.0-53.0) % MCV (80.0-100.0) fL MCH (25.0-35.0) pg MCHC (31.0-37.0) g/dL RDW (11.5-15.5) % Plt Count (150-450) k/uL MPV Neutrophils % % Lymphocytes % % Monocytes % % Eosinophils % % Basophils % % Neutrophils # (1.3-7.7) k/uL Lymphocytes # (1.0-4.8) k/uL Monocytes # (0-1.0) k/uL Eosinophils # (0-0.7) k/uL Basophils # (0-0.2) k/uL PT 12.7 H (10.0-12.5) sec INR 1.2 H (<1.2) APTT 23.5 (22.0-30.0) sec Sodium (137-145) mmol/L Potassium (3.5-5.1) mmol/L Chloride (98-107) mmol/L Carbon Dioxide (22-30) mmol/L Anion Gap mmol/L BUN (9-20) mg/dL Creatinine (0.66-1.25) mg/dL Est GFR (CKD-EPI)AfAm (>60 ml/min/1.73 sqM) Est GFR (CKD-EPI)NonAf (>60 ml/min/1.73 sqM) Glucose (74-99) mg/dL Plasma Lactic Acid Abdias (0.7-2.0) mmol/L Calcium (8.4-10.2) mg/dL Total Bilirubin (0.2-1.3) mg/dL AST (17-59) U/L ALT (4-49) U/L Alkaline Phosphatase (38-126) U/L Total Protein (6.3-8.2) g/dL Albumin (3.5-5.0) g/dL Influenza Type A (PCR) Not Detected (Not Detectd) Influenza Type B (PCR) Not Detected (Not Detectd) RSV (PCR) Not Detected (Not Detectd) SARS-CoV-2 (PCR) Not Detected (Not Detectd) Critical Care Time Critical Care Time: Yes Disposition Clinical Impression: Atrial fibrillation with RVR, Dehydration Disposition: ADMITTED IP TO THIS HOSP Is patient prescribed a controlled substance at d/c from ED?: No Referrals: Nonstaff,Physician [Primary Care Provider] - 1-2 days Time of Disposition: 14:37
[2024-04-24 13:10] LABS: Basophils % (A) 0 %; Eosinophils # (A) 0.1 k/uL (0-0.7); Eosinophils % (A) 1 %; Lymphocytes # (A) 2.1 k/uL (1.0-4.8); Lymphocytes % (A) 21 %; MCH 30.7 pg (25.0-35.0); MCHC 33.2 g/dL (31.0-37.0); MCV 92.5 fL (80.0-100.0); Mean Platelet Volume 8.3; Monocytes # (A) 0.6 k/uL (0-1.0); Monocytes % (A) 6 %; Neutrophils % (A) 70 %; Platelet Count 290 k/uL (150-450); RBC 6.23 m/uL (4.30-5.90); RDW 12.9 % (11.5-15.5)
[2024-04-24 13:25] LABS: ALT 21 U/L (4-49); African American GFR (CKD) 88 (>60 ml/min/1.73 sqM); Albumin 4.7 g/dL (3.5-5.0); Anion Gap 13 mmol/L; Blood Urea Nitrogen 36 mg/dL (9-20); Calcium 9.8 mg/dL (8.4-10.2); Carbon Dioxide 22 mmol/L (22-30); Chloride 98 mmol/L (98-107); Glucose 161 mg/dL (74-99); Non-African American GFR(CKD) 76 (>60 ml/min/1.73 sqM); Sodium 133 mmol/L (137-145); Total Bilirubin 1.5 mg/dL (0.2-1.3); Total Protein 7.5 g/dL (6.3-8.2)
[2024-04-24] MEDS: ONDANSETRON 4 MG/2 ML VIAL IVP STA (13:25)
[2024-04-24] MEDS: SODIUM CHLORIDE 0.9% 500 ML 500 ML IV SCH (13:33)
[2024-04-24 13:38] LABS: HCT 57.6 % (39.0-53.0); HGB 19.1 gm/dL (13.0-17.5)
[2024-04-24 13:41] LABS: AST 34 U/L (17-59); Alkaline Phosphatase 65 U/L (38-126); Potassium 5.2 mmol/L (3.5-5.1)
[2024-04-24 14:39] LABS: INR 1.2 (<1.2); Partial Thromboplastin Time 23.5 sec (22.0-30.0); Prothrombin Time 12.7 sec (10.0-12.5)
[2024-04-24] MEDS ORDERED: ACETAMINOPHEN TAB 500 MG TAB PO PRN (14:40)
[2024-04-24] MEDS ORDERED: ONDANSETRON 4 MG/2 ML VIAL IVP PRN (14:41)
[2024-04-24] MEDS ORDERED: NALOXONE 0.4 MG/ML 1 ML VIAL IV PRN (14:41)
[2024-04-24] MEDS: SODIUM CHLORIDE 0.9% 1,000 ML IV STA (14:45)
[2024-04-24] MEDS: DILTIAZEM 125 MG in SODIUM CHLORIDE 0.9% 100 ML IV SCH (14:47)
--- NOTE | 2024-04-24 14:54 | XR ---
EXAMINATION TYPE: XR chest 2V DATE OF EXAM: 04/24/2024 COMPARISON: 02/19/2024 HISTORY: 64-year-old male complaining of weakness, dizziness, fever TECHNIQUE: AP and lateral views FINDINGS: Left anterior chest wall pacemaker generator with right atrial and ventricular leads. Heart normal si ze. Aorta and pulmonary vasculature within normal limits. No consolidation or pleural effusion. IMPRESSION: No acute cardiopulmonary process.
--- NOTE | 2024-04-24 15:02 | P.HPIM ---
History of Present Illness This is a pleasant 64 years old gentleman with past medical history of atrial fibrillation on Eliquis at home, sick sinus syndrome s/p dual-chamber pacemaker insertion with Dr. Ybarra. He has a history of coronary artery disease status post stent. Hypertension, hyperlipidemia. Presents today because of dizziness felt like presyncope going on for about 3 weeks really worse over the last 3 days. He has some chest pain on and off but mild. No breathing difficulty or coughing He complains from periumbilical abdominal pain about 8/10, nonradiating increased by movement nonspecific associated with constipation for the last 2 da ys prior to that he had diarrhea. No vomiting but he has low appetite No urinary complaint. No dizziness, unilateral limb weakness or numbness. Patient denies blurry vision or slurred speech He complains from chronic frontal headache as he describes. Denies smoking alcohol or illicit drugs There was suspicion of fever at home however here he has been afebrile so far He was tachycardic with a heart rate about 140, temperature 97.1, blood pressure 121/95 Labs reviewed showing elevated hemoglobin 19, WBC is 10 with mostly concentrated sample Creatinine 1.0, potassium 5.2, sodium 133, INR is unremarkable Influenza A and type B, RSV, SARS (coronavirus) are undetected Chest x-ray showing no acute process when I reviewed, pending final official report CT of the abdomen and pelvis ordered in the emergency room for his abdominal pain which is still pending results Echocardiogram on 11/2023 showing ejection fraction 55 to 60% Review of Systems Review of systems CONSTITUTIONAL: No fever, no malaise, no fatigue. HEENT: No recent visual problems or hearing problems. Denied any sore throat. CARDIOVASCULAR: No orthopnea, PND, no palpitations, no syncope. PULMONARY: No shortness of breath, no cough, no hemoptysis. GASTROINTESTINAL: No diarrhea, no nausea, no vomiting, . Normoactive bowel sounds. NEUROLOGICAL: , no weakness, no numbness. HEMATOLOGICAL: Denies any bleeding or petechiae. GENITOURINARY: Denies any burning micturition, frequency, or urgency. MUSCULOSKELETAL/RHEUMATOLOGICAL: Denies any joint pain, swelling, or any muscle pain. ENDOCRINE: Denies any polyuria or polydipsia. Past Medical History Past Medical History: Atrial Fibrillation, Chest Pain / Angina, GERD/Reflux, Hyperlipidemia, Hypertension Additional Past Medical History / Comment(s): SEE DR. ZAMORA'S H&P. Borderline diabetic. History of Any Multi-Drug Resistant Organisms: MRSA Date of last positivie culture/infection: 02/09/20 MDRO Source:: HAND MRSA Past Surgical History: Cholecystectomy, Heart Catheterization, Heart Catheterization With Stent, Orthopedic Surgery Additional Past Surgical History / Comment(s): Carotid stent right side, fx femur repair Past Anesthesia/Blood Transfusion Reactions: No Reported Reaction Date of Last Stent Placement:: 2007 Smoking Status: Never smoker - Past Family History Mother Family Medical History: CVA/TIA Additional Family Medical History / Comment(s): of stroke Father Family Medical History: Coronary Artery Disease (CAD) Additional Family Medical History / Comment(s): of heart attack Medications and Allergies Home Medications Medication Instructions Recorded Confirmed Type Atorvastatin [Lipitor] 20 mg PO HS 05/05/19 04/24/24 History Venlafaxine HCl [Effexor XR] 150 mg PO DAILY 02/09/20 04/24/24 History Lisinopril-Hctz 20-25 mg 1 tab PO DAILY 12/10/23 04/24/24 History [Zestoretic 20-25] Apixaban [Eliquis] 5 mg PO BID #90 tab 12/17/23 04/24/24 Rx Metoprolol Tartrate [Lopressor] 50 mg PO BID #180 tab 02/18/24 04/24/24 Rx Acetaminophen Tab [Tylenol Tab] 500 mg PO Q6H PRN 04/24/24 04/24/24 History Omeprazole 20 mg PO DAILY 04/24/24 04/24/24 History amLODIPine [Norvasc] 5 mg PO DAILY 04/24/24 04/24/24 History Allergies Allergy/AdvReac Type Severity Reaction Status Date / Time naproxen [From Naprosyn] Allergy Rash/Hives Verified 04/24/24 12:41 Physical Exam Vitals: Vital Signs Temp Pulse Resp BP Pulse Ox 04/24/24 12:14 97.1 F L 140 H 18 121/95 99 Intake and Output 04/23/24 04/24/24 04/24/24 22:59 06:59 14:59 Other: Weight 72.575 kg -GENERAL: The patient is alert and oriented x3, not in any acute distress. Well developed, well nourished. Generally weak HEENT: Pupils are round and equally reacting to light. EOMI. No scleral icterus. No conjunctival pallor. Normocephalic, atraumatic. No pharyngeal erythema. No thyromegaly. CARDIOVASCULAR: S1 and S2 present. No murmurs, rubs, or gallops. PULMONARY: Chest is clear to auscultation, no wheezing , no crackles. -ABDOMEN: Soft, mild LLQ tenderness with no rebound tenderness or guarding, nondistended, normoactive bowel sounds. No palpable organomegaly. MUSCULOSKELETAL: No joint swelling or deformity. EXTREMITIES: No cyanosis, clubbing, or pedal edema. NEUROLOGICAL: Gross neurological examination did not reveal any focal deficits. SKIN: No rashes. no petechiae. Results CBC & Chem 7: 04/24/24 12:45 04/24/24 12:45 Labs: Abnormal Lab Results - Last 24 Hours (Table) 04/24/24 04/24/24 04/24/24 Range/Units 12:45 12:45 12:45 RBC 6.23 H (4.30-5.90) m/uL Hgb 19.1 H* D (13.0-17.5) gm/dL Hct 57.6 H* (39.0-53.0) % PT (10.0-12.5) sec INR (<1.2) Sodium 133 L (137-145) mmol/L Potassium 5.2 H (3.5-5.1) mmol/L BUN 36 H (9-20) mg/dL Glucose 161 H (74-99) mg/dL Plasma Lactic Acid Abdias 2.6 H* (0.7-2.0) mmol/L Total Bilirubin 1.5 H (0.2-1.3) mg/dL 04/24/24 Range/Units 14:13 RBC (4.30-5.90) m/uL Hgb (13.0-17.5) gm/dL Hct (39.0-53.0) % PT 12.7 H (10.0-12.5) sec INR 1.2 H (<1.2) Sodium (137-145) mmol/L Potassium (3.5-5.1) mmol/L BUN (9-20) mg/dL Glucose (74-99) mg/dL Plasma Lactic Acid Abdias (0.7-2.0) mmol/L Total Bilirubin (0.2-1.3) mg/dL Assessment and Plan Assessment: Recurrent dizziness related to A-fib and RVR, rule out coronary artery disease Abdominal pain pending CT of the abdomen and pelvis. Differential diagnosis including bowel obstruction, inflammatory bowel disease, kidney stone, infection/sepsis of intra-abdominal organ versus other A-fib and RVR, present on admission Hypertension Hyperlipidemia Coronary artery disease s/p stent Plan: Continue with Cardizem drip Continue with anticoagulation Cardiology consult Follow-up CT of the abdomen pelvis Continue with hydration Follow-up culture results Labs and medication were reviewed.. Continue same treatment. Continue with symptomatic treatment. Resume home medication. Monitor labs and vitals. DVT and GI prophylaxis. Further recommendations as per clinical course of the patient DVT prophylaxis: Eliquis GI Prophylaxis: Pepcid PT/OT: Pending Prognosis is guarded
[2024-04-24 18:01] LABS: Appearance,Urine Clear (Clear); Bilirubin,Urine Negative (Negative); Blood,Urine Trace (Negative); Color,Urine Colorless; Glucose,Urine (UA) Negative (Negative); Ketones,Urine 2+ (Negative); Leukocyte Esterase,Urine Negative (Negative); Mucus,Urine Occasional /hpf; Nitrite,Urine Negative (Negative); PH, Urine 5.5 (5.0-8.0); Protein,Urine Negative (Negative); RBC,Urine 2 /hpf (0-5); Specific Gravity,Urine 1.017 (1.001-1.035); Urobilinogen,Urine <2.0 mg/dL (<2.0); WBC,Urine 1 /hpf (0-5)
[2024-04-24] MEDS: SODIUM CHLORIDE 0.9% 1,000 ML IV SCH (18:39)
[2024-04-24] MEDS: APIXABAN 5 MG TAB PO SCH (20:28)
[2024-04-24] MEDS: FAMOTIDINE 20 MG/2 ML VIAL IV SCH (20:29)
[2024-04-24] MEDS: ATORVASTATIN 20 MG TAB PO SCH (20:29)
--- NOTE | 2024-04-24 21:47 | CT ---
EXAMINATION TYPE: CT abdomen pelvis w con DATE OF EXAM: 04/24/2024 COMPARISON: None HISTORY: abdominal pain CT DLP: 709 mGycm CONTRAST: CT scan of the abdomen and pelvis is performed without Oral Contrast and with IV Contrast, patient in jected with 100ml mL of Isovue 300. FINDINGS: LUNG BASES-: No visible nodule. No infiltrate. Small hiatal hernia. LIVER/GB: The gallbladder is surgically absent. No space occupying hepatic lesion. Biliary tree is of normal caliber. PANCREAS: No inflammation. No distinct mass. SPLEEN: No splenic enlargement. No lesion seen. ADRENALS: No nodule. No thickening. KIDNEYS/BLADDER: No hydronephrosis. No nephrolithiasis. No distinct renal mass. Mild distention ur inary bladder. BOWEL: Normal appendix. Normal bowel caliber. No inflammation. GENITAL ORGANS: No gross abnormality. LYMPH NODES: No greater than 1cm abdominal or pelvic lymph nodes are appreciated. AORTA: No significant abnormality. OSSEOUS STRUCTURES: No significant abnormality is seen. OTHER: No significant additional abnormality is seen. IMPRESSION: 1. No acute process seen.
[2024-04-24] MEDS: METOPROLOL TARTRATE 50 MG TAB PO SCH (22:05)
[2024-04-25] MEDS: MORPHINE SULFATE 2 MG/ML SYRINGE IVP PRN (00:42)
[2024-04-25 07:23] LABS: Basophils % (A) 0 %; Eosinophils # (A) 0.1 k/uL (0-0.7); Eosinophils % (A) 1 %; HCT 42.9 % (39.0-53.0); Lymphocytes # (A) 2.3 k/uL (1.0-4.8); Lymphocytes % (A) 23 %; MCH 31.4 pg (25.0-35.0); MCHC 34.1 g/dL (31.0-37.0); MCV 92.1 fL (80.0-100.0); Monocytes # (A) 0.6 k/uL (0-1.0); Monocytes % (A) 6 %; Neutrophils # (A) 6.9 k/uL (1.3-7.7); Neutrophils % (A) 69 %; Platelet Count 172 k/uL (150-450); RBC 4.66 m/uL (4.30-5.90); RDW 13.3 % (11.5-15.5); WBC 10.1 k/uL (3.8-10.6)
[2024-04-25 07:25] LABS: HGB 14.6 gm/dL (13.0-17.5)
[2024-04-25 07:27] LABS: ALT 16 U/L (4-49); AST 28 U/L (17-59); African American GFR (CKD) >90 (>60 ml/min/1.73 sqM); Albumin 3.2 g/dL (3.5-5.0); Alkaline Phosphatase 53 U/L (38-126); Anion Gap 5 mmol/L; Blood Urea Nitrogen 19 mg/dL (9-20); Calcium 8.4 mg/dL (8.4-10.2); Carbon Dioxide 25 mmol/L (22-30); Chloride 103 mmol/L (98-107); Glucose 91 mg/dL (74-99); Lipase 107 U/L (23-300); Non-African American GFR(CKD) >90 (>60 ml/min/1.73 sqM); Potassium 3.7 mmol/L (3.5-5.1); Sodium 133 mmol/L (137-145); Total Bilirubin 1.4 mg/dL (0.2-1.3); Total Protein 5.5 g/dL (6.3-8.2)
[2024-04-25] MEDS: VENLAFAXINE HCL ER 150 MG CAP PO SCH (07:52)
[2024-04-25] MEDS: amLODIPine 5 MG TAB PO SCH (07:52)
[2024-04-25] MEDS: LISINOPRIL-HCTZ 20-25 MG 1 EACH TAB PO SCH (07:52)
[2024-04-25] MEDS: PANTOPRAZOLE 40 MG TABLET PO SCH (07:52)
--- NOTE | 2024-04-25 10:46 | P.CRDCN ---
History of Present Illness Consult date: 04/25/24 Reason for Consult (text): A-flutter with RVR History of present illness: This is a 64-year-old male patient of Dr. Tomas with past medical history of mild triple-vessel disease, paroxysmal atrial fibrillation and postconversion pauses status post permanent pacemaker completed on 02/19/2024. History of dyslipidemia, hypertension, PAD, history of right common carotid artery stent, history of V. tach, obstructive sleep apnea. We have been asked to evaluate the patient for a flutter with RVR. Patient states that he has been feeling weak fa tigued and has limited activity level for the past 3 days. He has had difficulty standing. He denies palpitations or sensation that his heart was racing. If he had any chest pain it would have been very little. Patient states he has had significant amount of diarrhea and dry heaves. He has missed doses of his medications due to this. Patient has been started on a Cardizem drip and status post IV fluids remains in atrial flutter in the 150s. Discussed options with the patient and he is agreeable to undergo cardioversion with SISSY as he has missed some of his Eliquis doses. Blood pressure 104/72, heart rate in the 150s, pulse ox 97% on room air. Patient is seen today in the emergency c enter waiting for a bed on the cardiac stepdown unit. EKG: Atrial flutter at 145 bpm Chest x-ray: No acute process Laboratory studies: CBC is unremarkable. Sodium 133, potassium 3.7, creatinine 0.85. TSH 0.809. Influenza A, influenza B, RSV, COVID-19 not detected. Home cardiac medications: Amlodipine 5 mg daily, Eliquis 5 mg twice daily, atorvastatin 20 mg at bedtime, lisinoprilhydrochlorothiazide 20-25 mg daily, Lopressor 50 mg twice daily. Cardiac catheterization performed 01/17/2024 revealed mild triple-vessel disease Echocardiogram performed 12/10/2023 revealed normal EF, mild MR. [employer] dual-chamber pacemaker implantation on 02/19/[address] Henriquez Review Of Systems: At the time of my exam: CONSTITUTIONAL: Denies fever or chills. Reports fatigue and weakness HEENT: Denies blurred vision, vision changes, or eye pain. Denies hemoptysis CARDIOVASCULAR: Denies chest pain. Denies orthopnea. Denies PND. Denies palpitations RESPIRATORY: Denies shortness of breath. GASTROINTESTINAL: Denies abdominal pain. Denies nausea or vomiting. HEMATOLOGIC: Denies bleeding disorders. GENITOURINARY: Denies any blood in urine. SKIN: Denies puritis. Denies rash. Physical examination: Gen: This is a 64-year-old male appears to be in no acute distress VS: reviewed HEENT: Head is atraumatic, normocephalic. Pupils equal, round. Sclerae is anicteric. NECK: Supple. No JVD. LUNGS: Clear to auscultation. No wheezes or rhonchi. No intercostal retractions. HEART: Regular rate and rhythm. No murmur. Tachycardic ABDOMEN: Soft No tenderness. EXTREMITIES: No pedal edema. No calf tenderness. NEUROLOGICAL: Patient is awake, alert and oriented x3. Assessment: New onset atrial flutter with RVR, typical Paroxysmal atrial fibrillation Status post permanent pacemaker Mild triple-vessel coronary artery disease Hypertension Hyperlipidemia PAD Obstructive sleep apnea Plan: Resume patient's home cardiac medications except hold lisinopril/hydrochlorothiazide due to hypotension Continue Cardizem drip Schedule patient for SISSY and cardioversion today with Dr. Tomas No need to repeat echocardiogram Further recommendations to follow based upon clinical course Thank you kindly for this consultation. Nurse practitioner note has been reviewed, I agree with documented findings and plan of care. Patient was seen and examined. Past Medical History Past Medical History: Atrial Fibrillation, Chest Pain / Angina, GERD/Reflux, Hyperlipidemia, Hypertension Additional Past Medical History / Comment(s): SEE DR. HENRIQUEZ'S H&P. Borderline diabetic. History of Any Multi-Drug Resistant Organisms: MRSA Date of last positivie culture/infection: 02/09/20 MDRO Source:: HAND MRSA Past Surgical History: Cholecystectomy, Heart Catheterization, Heart Catheterization With Stent, Orthopedic Surgery Additional Past Surgical History / Comment(s): Carotid stent right side, fx femur repair Past Anesthesia/Blood Transfusion Reactions: No Reported Reaction Date of Last Stent Placement:: 2007 Smoking Status: Never smoker - Past Family History Mother Family Medical History: CVA/TIA Additional Family Medical History / Comment(s): of stroke Father Family Medical History: Coronary Artery Disease (CAD) Additional Family Medical History / Comment(s): of heart attack Medications and Allergies Home Medications Medication Instructions Recorded Confirmed Type Atorvastatin [Lipitor] 20 mg PO HS 05/05/19 04/24/24 History Venlafaxine HCl [Effexor XR] 150 mg PO DAILY 02/09/20 04/24/24 History Lisinopril-Hctz 20-25 mg 1 tab PO DAILY 12/10/23 04/24/24 History [Zestoretic 20-25] Apixaban [Eliquis] 5 mg PO BID #90 tab 12/17/23 04/24/24 Rx Metoprolol Tartrate [Lopressor] 50 mg PO BID #180 tab 02/18/24 04/24/24 Rx Acetaminophen Tab [Tylenol Tab] 500 mg PO Q6H PRN 04/24/24 04/24/24 History Omeprazole 20 mg PO DAILY 04/24/24 04/24/24 History amLODIPine [Norvasc] 5 mg PO DAILY 04/24/24 04/24/24 History Allergies Allergy/AdvReac Type Severity Reaction Status Date / Time naproxen [From Naprosyn] Allergy Rash/Hives Verified 04/24/24 12:41 Physical Exam Vitals: Vital Signs Temp Pulse Resp BP Pulse Ox 04/25/24 06:00 97.5 F L 104 H 16 116/62 100 04/25/24 03:06 97.3 F L 109 H 16 113/65 98 04/24/24 22:56 97.6 F 110 H 16 106/68 100 04/24/24 22:00 137 H 16 104/77 04/24/24 21:30 128 H 14 98 04/24/24 21:00 151 H 23 94/72 04/24/24 20:30 129 H 13 93/67 04/24/24 20:00 151 H 28 H 103/62 04/24/24 19:30 101 H 20 04/24/24 19:00 151 H 14 106/83 04/24/24 18:30 126 H 18 04/24/24 18:00 149 H 16 93/57 04/24/24 17:30 154 H 20 04/24/24 17:00 152 H 21 96 04/24/24 16:30 151 H 24 105/88 99 04/24/24 16:00 147 H 14 98/63 97 04/24/24 15:30 144 H 21 110/70 96 04/24/24 15:00 141 H 21 109/88 98 04/24/24 14:30 144 H 17 99 04/24/24 14:00 142 H 16 98 04/24/24 13:30 146 H 24 99 04/24/24 13:00 100 04/24/24 12:30 100 04/24/24 12:21 121/95 04/24/24 12:14 97.1 F L 140 H 18 121/95 99 Results 04/25/24 06:08 04/25/24 06:08 Cardiac Enzymes 04/24/24 Range/Units 12:45 AST 34 (17-59) U/L Coagulation 04/24/24 Range/Units 14:13 PT 12.7 H (10.0-12.5) sec APTT 23.5 (22.0-30.0) sec CBC 04/24/24 04/25/24 Range/Units 12:45 06:08 WBC 10.0 10.1 (3.8-10.6) k/uL RBC 6.23 H 4.66 (4.30-5.90) m/uL Hgb 19.1 H* D 14.6 D (13.0-17.5) gm/dL Hct 57.6 H* 42.9 (39.0-53.0) % Plt Count 290 172 (150-450) k/uL Comprehensive Metabolic Panel 04/24/24 Range/Units 12:45 Sodium 133 L (137-145) mmol/L Potassium 5.2 H (3.5-5.1) mmol/L Chloride 98 (98-107) mmol/L Carbon Dioxide 22 (22-30) mmol/L BUN 36 H (9-20) mg/dL Creatinine 1.03 (0.66-1.25) mg/dL Glucose 161 H (74-99) mg/dL Calcium 9.8 (8.4-10.2) mg/dL AST 34 (17-59) U/L ALT 21 (4-49) U/L Alkaline Phosphatase 65 (38-126) U/L Total Protein 7.5 (6.3-8.2) g/dL Albumin 4.7 (3.5-5.0) g/dL Current Medications Generic Name Dose Route Start Last Admin Trade Name Freq PRN Reason Stop Dose Admin Acetaminophen 500 mg 04/24/24 14:40 Acetaminophen Tab 500 Mg Tab PO Q6H PRN Pain or Fever > 100.5 Amlodipine Besylate 5 mg 04/25/24 09:00 Amlodipine 5 Mg Tab PO DAILY [facility] Apixaban 5 mg 04/24/24 21:00 04/24/24 20:28 Apixaban 5 Mg Tab PO 5 mg BID MICHAEL Administration Protocol Atorvastatin Calcium 20 mg 04/24/24 21:00 04/24/24 20:29 Atorvastatin 20 Mg Tab PO 20 mg HS MICHAEL Administration Famotidine 20 mg 04/24/24 21:00 04/24/24 20:29 Famotidine 20 Mg/2 Ml Vial IV 20 mg Q12HR MICHAEL Administration Lisinopril/HCTZ 1 each 04/25/24 09:00 Lisinopril-Hctz 20-25 Mg 1 Each Tab PO DAILY [facility] Diltiazem HCl 125 mg/ Sodium 125 mls @ 5 mls/hr 04/24/24 14:45 04/24/24 14:47 Chloride IV 5 mg/hr .Q24H [facility] 5 mls/hr Administration 5 MG/HR Sodium Chloride 1,000 mls @ 130 mls/hr 04/24/24 14:45 04/25/24 06:45 Saline 0.9% IV Not Given .Q7H42M [facility] Metoprolol Tartrate 50 mg 04/24/24 21:00 04/24/24 22:05 Metoprolol Tartrate 50 Mg Tab PO Not Given BID [facility] Morphine Sulfate 2 mg 04/24/24 22:04 04/25/24 00:42 Morphine Sulfate 2 Mg/Ml Syringe IVP 2 mg Q6HR PRN Administration Pain/Discomfort Naloxone HCl 0.2 mg 04/24/24 14:41 Naloxone 0.4 Mg/Ml 1 Ml Vial IV Q2M PRN Opioid Reversal Ondansetron HCl 4 mg 04/24/24 14:41 Ondansetron 4 Mg/2 Ml Vial IVP Q8HR PRN Nausea And Vomiting Pantoprazole Sodium 40 mg 04/25/24 07:30 Pantoprazole 40 Mg Tablet PO AC-BRKFST [facility] Venlafaxine HCl 150 mg 04/25/24 09:00 Venlafaxine Hcl Er 150 Mg Cap PO DAILY [facility] 04/25/24 06:08 04/24/24 12:45
[2024-04-25] MEDS: AMIODARONE 360 MG in DEXTROSE 5% IN WATER 200 ML IV ONE (11:09)
[2024-04-25] MEDS: DEXTROSE 5% IN WATER 100 ML with AMIODARONE 150 MG IV ONE (11:10)
[2024-04-25] MEDS: LACTATED RINGERS 1,000 ML IV ONE (12:43)
[2024-04-25] MEDS: BENZOCAINE SPRAY 1 EACH MM ONE (12:54)
[2024-04-25] MEDS ORDERED: PROPOFOL 10 MG/ML 20 ML VIAL IV ONE (13:02)
[2024-04-25] MEDS ORDERED: LIDOCAINE 1% INJ 10MG/ML (20 ML MDV) ONE (13:02)
--- NOTE | 2024-04-25 13:17 | P.PCN ---
Date of Procedure: 04/25/24 Description of Procedure: Indication: Atrial flutter Procedure Description: After explaining the procedure to the patient, it's risk and complications, blood pressure, heart rate and O2 saturation were monitored. The throat was sprayed with Cetacaine. Patient received sedation per anesthesia department. The probe was introduced into the esophagus without difficulty. Images were obtained. Following that, the probe was removed. There was no immediate complication. Findings: Left atrial size is mildly dilated, left atrial appendage is normal. Left ventricular size and systolic function are normal. The aortic valve appears to be normal. Mitral valve revealed mild calcification. The tricuspid valve and pulmonic valve are normal. A wire was noted in the right ventricle. Descending thoracic aorta appears to be normal. No pericardial fusion was noted. Contrast bubble study revealed no shunting across the interatrial septum. Doppler: Pulse wave and color Doppler were obtained, and revealed mild mitral and tricuspid regurgitation, there was no shunting by color Doppler study. Conclusion: 1. Mildly dilated left atrium with normal appearance of the left atrial appendage 2. Normal ventricle size and systolic function 3. Mild mitral and tricuspid regurgitation 4. A wire was noted in the right ventricle 5. No pericardial fusion Cardioversion: After performing SISSY and obtaining a sedated state a synchronized biphasic cardioversion using 150 J was performed with gnosticist of sinus mechanism, there was no immediate complications.
[2024-04-25] MEDS ORDERED: AMIODARONE 450 MG in DEXTROSE 5% IN WATER 250 ML IV SCH (13:30)
--- NOTE | 2024-04-25 14:34 | P.PN ---
Subjective Progress Note Date: 04/25/24 64 years old gentleman with past medical history of atrial fibrillation on Eliquis at home, sick sinus syndrome s/p dual-chamber pacemaker insertion with Dr. Ybarra. He has a history of coronary artery disease status post stent. Hypertension, hyperlipidemia. Presents today because of dizziness felt like presyncope going on for about 3 weeks really worse over the last 3 days. He has some chest pain on and off but mild. No breathing difficulty or coughing He complains from periumbilical abdominal pain about 8/10, nonradiating increased by movement nonspecific associated with constipation for the last 2 days prior to that he had diarrhea. No vomiting but he has low appetite No urinary complaint. No dizziness, unilateral limb weakness or numbness. Patient denies blurry vision or slurred speech He complains from chronic frontal headache as he describes. Denies smoking alcohol or illicit drugs There was suspicion of fever at home however here he has been afebrile so far He was tachycardic with a heart rate about 140, temperature 97.1, blood pressure 121/95 Labs reviewed showing elevated hemoglobin 19, WBC is 10 with mostly concentrated sample Creatinine 1.0, potassium 5.2, sodium 133, INR is unremarkable Influenza A and type B, RSV, SARS (coronavirus) are undetected Chest x-ray showing no acute process when I reviewed, pending final official report CT of the abdomen and pelvis ordered in the emergency room for his abdominal pain which is still pending results Echocardiogram on 11/2023 showing ejection fraction 55 to 60% -- Patient scheduled for SISSY and cardioversion this morning Objective - Vital Signs Vital signs: Vital Signs Temp 97.5 F L 04/25/24 06:00 Pulse 144 H 04/25/24 10:16 Resp 18 04/25/24 10:16 BP 91/78 04/25/24 10:16 Pulse Ox 97 04/25/24 07:45 FiO2 Intake & Output 04/24/24 04/25/24 04/25/24 18:59 06:59 18:59 Weight 72.575 kg - Exam -GENERAL: The patient is alert and oriented x3, not in any acute distress. Well developed, well nourished. Generally weak HEENT: Pupils are round and equally reacting to light. EOMI. No scleral icterus. No conjunctival pallor. Normocephalic, atraumatic. No pharyngeal erythema. No thyromegaly. CARDIOVASCULAR: S1 and S2 present. No murmurs, rubs, or gallops. PULMONARY: Chest is clear to auscultation, no wheezing , no crackles. -ABDOMEN: Soft, mild LLQ tenderness with no rebound tenderness or guarding, nondistended, normoactive bowel sounds. No palpable organomegaly. MUSCULOSKELETAL: No joint swelling or deformity. EXTREMITIES: No cyanosis, clubbing, or pedal edema. NEUROLOGICAL: Gross neurological examination did not reveal any focal deficits. SKIN: No rashes. no petechiae. - Labs CBC & Chem 7: 04/25/24 06:08 04/25/24 06:08 Labs: Abnormal Lab Results - Last 24 Hours (Table) 04/24/24 04/24/24 04/24/24 Range/Units 12:45 12:45 12:45 RBC 6.23 H (4.30-5.90) m/uL Hgb 19.1 H* D (13.0-17.5) gm/dL Hct 57.6 H* (39.0-53.0) % PT (10.0-12.5) sec INR (<1.2) Sodium 133 L (137-145) mmol/L Potassium 5.2 H (3.5-5.1) mmol/L BUN 36 H (9-20) mg/dL Glucose 161 H (74-99) mg/dL Plasma Lactic Acid Abdias 2.6 H* (0.7-2.0) mmol/L Total Bilirubin 1.5 H (0.2-1.3) mg/dL Total Protein (6.3-8.2) g/dL Albumin (3.5-5.0) g/dL Urine Ketones (Negative) Urine Blood (Negative) Urine Mucus (None) /hpf 04/24/24 04/24/24 04/25/24 Range/Units 14:13 17:34 06:08 RBC (4.30-5.90) m/uL Hgb (13.0-17.5) gm/dL Hct (39.0-53.0) % PT 12.7 H (10.0-12.5) sec INR 1.2 H (<1.2) Sodium 133 L (137-145) mmol/L Potassium (3.5-5.1) mmol/L BUN (9-20) mg/dL Glucose (74-99) mg/dL Plasma Lactic Acid Abdias (0.7-2.0) mmol/L Total Bilirubin 1.4 H (0.2-1.3) mg/dL Total Protein 5.5 L (6.3-8.2) g/dL Albumin 3.2 L (3.5-5.0) g/dL Urine Ketones 2+ H (Negative) Urine Blood Trace H (Negative) Urine Mucus Occasional H (None) /hpf Assessment and Plan Assessment: Recurrent dizziness related to A-fib and RVR, rule out coronary artery disease Abdominal pain pending CT of the abdomen and pelvis. Differential diagnosis including bowel obstruction, inflammatory bowel disease, kidney stone, infection/sepsis of intra-abdominal organ versus other A-fib and RVR, present on admission Hypertension Hyperlipidemia Coronary artery disease s/p stent Plan: Continue with Cardizem drip Continue with anticoagulation Cardiology consult Follow-up CT of the abdomen pelvis Continue with hydration Follow-up culture results Labs and medication were reviewed.. Continue same treatment. Continue with symptomatic treatment. Resume home medication. Monitor labs and vitals. DVT and GI prophylaxis. Further recommendations as per clinical course of the patient DVT prophylaxis: Eliquis GI Prophylaxis: Pepcid PT/OT: Pending Prognosis is guarded
[2024-04-25] MEDS: SODIUM CHLORIDE 0.9% 1,000 ML IV SCH (16:47)
[2024-04-26 04:48] VITALS: RESP 18
[2024-04-26 08:11] VITALS: BP 121/70; PULSE 80; TEMP 98.5
--- NOTE | 2024-04-26 08:32 | P.PN ---
Subjective Progress Note Date: 04/26/24 The patient was seen and evaluated this morning with he is maintaining sinus rhythm. He is on oral anticoagulation and also he is on AV jake bailey agents. From the cardiovascular standpoint of view, the patient can be discharged home. The physical examination is remarkable for regular rhythm with a soft systolic murmur and clear breathing sounds bilaterally and no edema was noted in the lower extremities Assessment Atrial flutter status post cardioversion Known history of paroxysmal atrial fibrillation Multiple comorbid conditions Plan Continue the current medical regimen The patient can be discharged home Objective - Vital Signs Vital signs: Vital Signs Temp 98.5 F 04/26/24 08:09 Pulse 80 04/26/24 08:09 Resp 18 04/26/24 08:09 BP 121/70 04/26/24 08:09 Pulse Ox 100 04/26/24 08:09 FiO2 Intake & Output 04/25/24 04/26/24 04/26/24 18:59 06:59 18:59 Intake Total 200 Balance 200 Weight 72.575 kg 69 kg Intake: IV 200 Other: Voiding Method Toilet # Voids 0 1 - Labs CBC & Chem 7: 04/25/24 06:08 04/25/24 06:08 Labs: Microbiology - Last 24 Hours (Table) 04/24/24 13:22 Blood Culture - Preliminary Blood
--- NOTE | 2024-04-26 12:50 | P.DS ---
Providers Date of admission: 04/24/24 14:42 Expected date of discharge: 04/26/24 Attending physician: Salima Wong Consults: 04/24/24 14:41 Consult Physician Urgent Consulting Provider: Phil Jessica Consult Reason/Comments: a fluuter w rvr Do you want consulting provider notified?: Yes Primary care physician: Physician Nonsta Hospital Course: 64 years old gentleman with past medical history of atrial fibrillation on Eliquis at home, sick sinus syndrome s/p dual-chamber pacemaker insertion with Dr. Ybarra. He has a history of coronary artery disease status post stent. Hypertension, hyperlipidemia. Presents today because of dizziness felt like presyncope going on for about 3 weeks really worse over the last 3 days. He has some chest pain on and off but mild. No breathing difficulty or coughing He complains from periumbilical abdominal pain about 8/10, nonradiating increased by movement nonspecific associated with constipation for the last 2 days prior to that he had diarrhea. No vomiting but he has low appetite No urinary complaint. No dizziness, unilateral limb weakness or numbness. Patient denies blurry vision or slurred speech He complains from chronic frontal headache as he describes. Denies smoking alcohol or illicit drugs There was suspicion of fever at home however here he has been afebrile so far He was tachycardic with a heart rate about 140, temperature 97.1, blood pressure 121/95 Labs reviewed showing elevated hemoglobin 19, WBC is 10 with mostly concentrated sample Creatinine 1.0, potassium 5.2, sodium 133, INR is unremarkable Influenza A and type B, RSV, SARS (coronavirus) are undetected Chest x-ray showing no acute process when I reviewed, pending final official report CT of the abdomen and pelvis ordered in the emergency room for his abdominal pain which is still pending results Echocardiogram on 11/2023 showing ejection fraction 55 to 60% Recurrent dizziness related to A-fib and RVR, rule out coronary artery disease Abdominal pain pending CT of the abdomen and pelvis. Differential diagnosis including bowel obstruction, inflammatory bowel disease, kidney stone, infection/sepsis of intra-abdominal organ versus other A-fib and RVR, present on admission Hypertension Hyperlipidemia Coronary artery disease s/p stent ---Continue with Cardizem drip Continue with anticoagulation Cardiology consult Follow-up CT of the abdomen pelvis Continue with hydration Follow-up culture results Labs and medication were reviewed.. Continue same treatment. Continue with symptomatic treatment. Resume home medication. Monitor labs and vitals. DVT and GI prophylaxis. Further recommendations as per clinical course of the patient DVT prophylaxis: Eliquis Atrial flutter status post cardioversion Known history of paroxysmal atrial fibrillation Plan - Discharge Summary Discharge Rx Participant: No New Discharge Prescriptions: Continue Atorvastatin [Lipitor] 20 mg PO HS Venlafaxine HCl [Effexor XR] 150 mg PO DAILY Lisinopril-Hctz 20-25 mg [Zestoretic 20-25] 1 tab PO DAILY Acetaminophen Tab [Tylenol] 500 mg PO Q6H PRN PRN Reason: Pain Or Fever > 100.5 Apixaban [Eliquis] 5 mg PO BID #90 tab Metoprolol Tartrate [Lopressor] 50 mg PO BID #180 tab amLODIPine [Norvasc] 5 mg PO DAILY Omeprazole 20 mg PO DAILY Discharge Medication List Atorvastatin [Lipitor] 20 mg PO HS 05/05/19 [History] Venlafaxine HCl [Effexor XR] 150 mg PO DAILY 02/09/20 [History] Lisinopril-Hctz 20-25 mg [Zestoretic 20-25] 1 tab PO DAILY 12/10/23 [History] Apixaban [Eliquis] 5 mg PO BID #90 tab 12/17/23 [Rx] Metoprolol Tartrate [Lopressor] 50 mg PO BID #180 tab 02/18/24 [Rx] Acetaminophen Tab [Tylenol] 500 mg PO Q6H PRN 04/24/24 [History] Omeprazole 20 mg PO DAILY 04/24/24 [History] amLODIPine [Norvasc] 5 mg PO DAILY 04/24/24 [History] Follow up Appointment(s)/Referral(s): Marcial Tomas MD [STAFF PHYSICIAN] - 1 Week Nonstaff,Physician [Primary Care Provider] - 1-2 days Patient Instructions/Handouts: Atrial Flutter (DC), Cardioversion (DC) Discharge/Stand Alone Forms: Area PCPs Discharge Disposition: HOME SELF-CARE
== END 2024-04-26 12:59 | disposition home or self-care (01) | DRG 310 ==
LOC: EC 12:10 → 3SCARD 14:42
PROVIDERS: ADMIT Internal Medicine; ATTEND Internal Medicine
PROC: B24BZZ4 Ultrasonography of Heart with Aorta, Transesophageal (ICD-10-PCS; 2024-04-25)
PROC: 5A2204Z Restoration of Cardiac Rhythm, Single (ICD-10-PCS; principal; 2024-04-25 07:30)
DX: I48.0 Paroxysmal atrial fibrillation (principal); I48.92 Unspecified atrial flutter; K21.9 Gastro-esophageal reflux disease without esophagitis; E78.5 Hyperlipidemia, unspecified; I10 Essential (primary) hypertension; I25.10 Atherosclerotic heart disease of native coronary artery without angina pectoris; I73.9 Peripheral vascular disease, unspecified; E86.0 Dehydration; G47.33 Obstructive sleep apnea (adult) (pediatric); I49.5 Sick sinus syndrome; Z95.0 Presence of cardiac pacemaker; Z79.899 Other long term (current) drug therapy; Z95.5 Presence of coronary angioplasty implant and graft; Z79.01 Long term (current) use of anticoagulants
CPT/HCPCS: 36415; 71046; 74177; 80053; 81001; 83605; 83690; 84443; 85025; 85610; 85730; 87040; 87636; 92960; 93005; 93312; 93320; 93325; 96365; 96366; 96375; 96376; 99291

== ENCOUNTER 2025-02-09 17:46 | Inpatient (IN) | payer MEDICARE, OTHER ==
--- NOTE | 2025-02-09 18:02 | ED ---
Arrhythmia/Palpitations HPI - General Stated Complaint: AFIB Time Seen by Provider: 02/09/25 17:47 Source: RN notes reviewed, old records reviewed Mode of arrival: ambulatory Limitations: no limitations - History of Present Illness Initial Comments: This is a 64-year-old male to the ER for evaluation patient coming in for weakness lightheadedness dizziness chest pain. Patient feels like his heart is racing concerned that it could be as A-fib or other cause of shortness of breath and chest pain MD Complaint: rapid heart beat, "heart racing", palpitations, irregular heart beat, atrial fibrillation Associated Symptoms: chest pain, shortness of breath, near-syncope Treatments Prior to Arrival: other (0) - Related Data Home Medications Medication Instructions Recorded Confirmed Atorvastatin [Lipitor] 20 mg PO HS 05/05/19 02/10/25 Venlafaxine HCl [Effexor XR] 150 mg PO DAILY 02/09/20 02/10/25 Lisinopril-Hctz 20-25 mg 1 tab PO DAILY 12/10/23 02/10/25 [Zestoretic 20-25] Omeprazole 20 mg PO DAILY 04/24/24 02/10/25 amLODIPine [Norvasc] 10 mg PO DAILY 02/10/25 02/10/25 Previous Rx's Medication Instructions Recorded Apixaban [Eliquis] 5 mg PO BID #90 tab 12/17/23 Metoprolol Tartrate [Lopressor] 50 mg PO BID #180 tab 02/18/24 Allergies Allergy/AdvReac Type Severity Reaction Status Date / Time naproxen [From Naprosyn] Allergy Rash/Hives Verified 02/10/25 07:37 Review of Systems ROS Statement: Those systems with pertinent positive or pertinent negative responses have been documented in the HPI. ROS Other: All systems not noted in ROS Statement are negative. Past Medical History Past Medical History: Atrial Fibrillation, Chest Pain / Angina, GERD/Reflux, Hyperlipidemia, Hypertension, Seizure Disorder Additional Past Medical History / Comment(s): -seizure, bloood infection, a-fib/a-aflutter History of Any Multi-Drug Resistant Organisms: MRSA Date of last positivie culture/infection: 02/09/20 MDRO Source:: HAND MRSA Past Surgical History: Cholecystectomy, Heart Catheterization, Orthopedic Surgery, Pacemaker Additional Past Surgical History / Comment(s): Carotid stent right side, fx femur repair, cardioversion-04/25/[address] Tomas, [facility] February 2024 Past Anesthesia/Blood Transfusion Reactions: No Reported Reaction Date of Last Stent Placement:: 2007 Type of Cardiac Device: Permanent Pacemaker Device Placement Date:: 02/18/2024 Past Psychological History: No Psychological Hx Reported Smoking Status: Never smoker Past Alcohol Use History: None Reported Additional Past Alcohol Use History / Comment(s): . Past Drug Use History: Marijuana Additional Drug Use History / Comment(s): . - Past Family History Mother Family Medical History: CVA/TIA Additional Family Medical History / Comment(s): of stroke Father Family Medical History: Coronary Artery Disease (CAD) Additional Family Medical History / Comment(s): of heart attack General Exam General appearance: alert, in no apparent distress Head exam: Present: atraumatic, normocephalic, normal inspection Eye exam: Present: normal appearance, PERRL, EOMI. Absent: scleral icterus, conjunctival injection, periorbital swelling ENT exam: Present: normal exam, mucous membranes moist Neck exam: Present: normal inspection. Absent: tenderness, meningismus, lymphadenopathy Respiratory exam: Present: normal lung sounds bilaterally. Absent: respiratory distress, wheezes, rales, rhonchi, stridor Cardiovascular Exam: Present: tachycardia, irregular rhythm, normal heart sounds. Absent: systolic murmur, diastolic murmur, rubs, gallop, clicks GI/Abdominal exam: Present: soft, normal bowel sounds. Absent: distended, tenderness, guarding, rebound, rigid Extremities exam: Present: normal inspection, full ROM, normal capillary refill. Absent: tenderness, pedal edema, joint swelling, calf tenderness Back exam: Present: normal inspection Neurological exam: Present: alert, oriented X3, CN II-XII intact Psychiatric exam: Present: normal affect, normal mood Skin exam: Present: warm, dry, intact, normal color. Absent: rash Course Vital Signs 02/09/25 02/09/25 02/09/25 17:52 18:44 20:00 Temperature 97.9 F Pulse Rate 181 H 87 78 Pulse Rate [ Alarm Field Technician ] Respiratory 20 12 16 Rate Blood Pressure 93/75 111/63 106/73 Blood Pressure [Left Arm] O2 Sat by Pulse 99 100 98 Oximetry 0702/10/25 02/10/25 01:24 02:31 03:22 Temperature 98.6 F Pulse Rate 129 H 117 H 99 Pulse Rate [ Alarm Field Technician ] Respiratory 16 16 Rate Blood Pressure 105/70 117/58 Blood Pressure [Left Arm] O2 Sat by Pulse 96 Oximetry 02/10/25 02/10/25 02/10/25 04:01 05:01 05:21 Temperature 98 F Pulse Rate 101 H 93 108 H Pulse Rate [ Alarm Field Technician ] Respiratory 16 18 Rate Blood Pressure 125/80 106/58 Blood Pressure [Left Arm] O2 Sat by Pulse 96 98 Oximetry 02/10/25 02/10/25 02/10/25 06:05 08:00 12:00 Temperature 98.1 F Pulse Rate 101 H Pulse Rate [ 92 87 Alarm Field Technician ] Respiratory 16 18 18 Rate Blood Pressure 104/76 Blood Pressure 98/76 100/70 [Left Arm] O2 Sat by Pulse 95 98 96 Oximetry 02/10/25 02/10/25 02/10/25 15:58 16:38 18:00 Temperature Pulse Rate 113 H 60 64 Pulse Rate [ Alarm Field Technician ] Respiratory 16 16 Rate Blood Pressure 91/66 93/56 Blood Pressure [Left Arm] O2 Sat by Pulse 98 97 Oximetry 02/10/25 02/11/25 19:45 01:25 Temperature 98.2 F Pulse Rate 75 69 Pulse Rate [ Alarm Field Technician ] Respiratory 18 18 Rate Blood Pressure 134/72 138/79 Blood Pressure [Left Arm] O2 Sat by Pulse 98 98 Oximetry - Reevaluation(s) Reevaluation #1: 02/09/25 19:42 Medical records reviewed Reevaluation #2: 02/09/25 19:42 Patient heart rate was improved but is continued to bounce back into atrial fibrillation with elevated rate Reevaluation #3: 02/09/25 19:42 Patient informed of results questions answered Reevaluation #4: Was pt. sent in by a medical professional or institution (, PA, SQL SSIS DEVELOPER, urgent care, hospital, or [facility]...) When possible be specific @ -no Did you speak to anyone other than the patient for history (EMS, parent, family, police, friend...)? What history was obtained from this source @ -no Did you review nursing and triage notes (agree or disagree)? Why? @ -agree Are old charts reviewed (outside hosp., previous admission, EMS record, old EKG, old radiological studies, urgent care reports/EKG's, [facility] records)? Report findings @ -yes Differential Diagnosis (chest pain, altered mental status, abdominal pain women, abdominal pain men, vaginal bleeding, weakness, fever, dyspnea, syncope, hea dache, dizziness, GI bleed, back pain, seizure, CVA, palpatations, mental health, musculoskeletal)? @ -prior EKG interpreted by me (3pts min.). @ -yes X-rays interpreted by me (1pt min.). @ -no CT interpreted by me (1pt min.). @ -no U/S interpreted by me (1pt. min.). @ -no What testing was considered but not performed or refused? (CT, X-rays, U/S, labs)? Why? @ -none What meds were considered but not given or refused? Why? @ -none Did you discuss the management of the patient with other professionals (professionals i.e. , PA, SQL SSIS DEVELOPER, lab, RT, psych nurse, social science teacher, machinery dismantler, teacher, retail loss prevention officer, case planner)? Give summary @ -no Was smoking cessation discussed for >3mins.? @ -no Was critical care preformed (if so, how long)? @ -[id number] Were there social determinants of health that impacted care today? How? (Homelessness, low income, unemployed, alcoholism, drug addiction, transportation, low edu. Level, literacy, decrease access to med. care, alf, rehab)? @ -none Was there de-escalation of care discussed even if they declined (Discuss DNR or withdrawal of care, Hospice)? DNR status @ -no What co-morbidities impacted this encounter? (DM, HTN, Smoking, COPD, CAD, Ca ncer, CVA, ARF, Chemo, Hep., AIDS, mental health diagnosis, sleep apnea, morbid obesity)? @ -none Was patient admitted / discharged? Hospital course, mention meds given and route, prescriptions, significant lab abnormalities, going to OR and other pertinent info. @ - 64 male to the ER for evaluation patient will be admitted for uncontrolled atrial fibrillation with RVR. Patient is currently on still on blood thinners has been taking all medications as prescribed. Heart rate difficult to control here in the ER Admitted Undiagnosed new problem with uncertain prognosis? @ -no Drug Therapy requiring intensive monitoring for toxicity (Heparin, Nitro, Insulin, Cardizem)? @ -no Were any procedures done? @ -no Diagnosis/symptom? @ -Uncontrolled atrial fibrillation with RVR Acute, or Chronic, or Acute on Chronic? @ -Acute Uncomplicated (without systemic symptoms) or Complicated (systemic symptoms)? @ -Complicated Side effects of treatment? @ -no Exacerbation, Progression, or Severe Exacerbation? @ -exacerbation Poses a threat to life or bodily function? How? (Chest pain, [place], [place], pneumonia, PE, COPD, DKA, ARF, appy, cholecystitis, CVA, Diverticulitis, Homicidal, Suicidal, threat to staff... and all critical care pts) @ -yes arrhythmia Reevaluation #5: Differential Palpitations Ventricular arrhythmias, atrial arrhythmias, myocardial infarction, anemia, thyrotoxicosis, electrolyte imbalance, hypokalemia, pulmonary embolism, pulmonary disease, drugs, alcohol, anxiety, stress.... This is not meant to be an all-inclusive list. - Consultations Consultation #1: Spoke with with Dr. Cindy thomas who agrees to admit this patient EKG Findings - EKG Comments: EKG Findings:: EKG is A-fib with RVR 160 QRS 80 QTc 340 - EKG Results: EKG: interpreted by [facility] Medical Decision Making - Medical Decision Making 64 male to the ER for evaluation patient will be admitted for uncontrolled atrial fibrillation with RVR. Patient is currently on still on blood thinners has been taking all medications as prescribed. Heart rate difficult to control here in the ER - Lab Data Result diagrams: 02/11/25 08:49 02/11/25 08:49 Lab Results 02/09/25 02/09/25 02/09/25 Range/Units 18:21 18:21 18:21 WBC 10.70 H (4.50-10.00) 10*3/uL RBC 5.32 (4.40-5.60) 10*6/uL Hgb 17.0 (13.0-17.0) g/dL Hct 45.7 (39.6-50.0) % MCV 85.9 (80.0-97.0) fL MCH 32.0 (27.0-32.0) pg MCHC 37.2 H (32.0-37.0) g/dL Plt Count 232 (140-440) 10*3/uL MPV 11.9 (9.5-12.2) fL Immature Gran % (Auto) 0.3 % Neutrophils % 60.3 % Lymphocytes % 31.3 % Monocytes % 7.6 % Eosinophils % 0.3 % Basophils % 0.2 % Immature Gran # 0.03 (0.00-0.04) 10*3/uL Neutrophils # 6.46 (1.80-7.70) 10*3/uL Lymphocytes # 3.35 (0.90-5.00) 10*3/uL Monocytes # 0.81 (0.20-1.00) 10*3/uL Eosinophils # 0.03 L (0.04-0.35) 10*3/uL Basophils # 0.02 (0.00-0.10) 10*3/uL PT 13.7 H (10.0-12.5) sec INR 1.3 H (<1.2) APTT 22.3 (22.0-30.0) sec Sodium 127 L (137-145) mmol/L Potassium 3.3 L (3.5-5.1) mmol/L Chloride 90 L (98-107) mmol/L Carbon Dioxide 20 L (22-30) mmol/L Anion Gap 17 mmol/L BUN 29 H (9-20) mg/dL Creatinine 1.24 (0.66-1.25) mg/dL Est GFR (CKD-EPI)AfAm 70 (>60 ml/min/1.73 sqM) Est GFR (CKD-EPI)NonAf 61 (>60 ml/min/1.73 sqM) Glucose 148 H (74-99) mg/dL Lactic Ac Sepsis Rflx Plasma Lactic Acid Abdias (0.7-2.0) mmol/L Calcium 9.0 (8.4-10.2) mg/dL Phosphorus 4.0 (2.5-4.5) mg/dL Magnesium 1.8 (1.6-2.3) mg/dL Total Bilirubin 1.2 (0.2-1.3) mg/dL AST 31 (17-59) U/L ALT 20 (4-49) U/L Alkaline Phosphatase 72 (38-126) U/L Troponin I (0.000-0.034) ng/mL NT-Pro-B Natriuret Pep 5630 pg/mL Total Protein 6.6 (6.3-8.2) g/dL Albumin 4.2 (3.5-5.0) g/dL TSH 2.730 (0.465-4.680) mIU/L 02/09/25 02/09/25 02/09/25 Range/Units 18:21 18:21 19:25 WBC (4.50-10.00) 10*3/uL RBC (4.40-5.60) 10*6/uL Hgb (13.0-17.0) g/dL Hct (39.6-50.0) % MCV (80.0-97.0) fL MCH (27.0-32.0) pg MCHC (32.0-37.0) g/dL Plt Count (140-440) 10*3/uL MPV (9.5-12.2) fL Immature Gran % (Auto) % Neutrophils % % Lymphocytes % % Monocytes % % Eosinophils % % Basophils % % Immature Gran # (0.00-0.04) 10*3/uL Neutrophils # (1.80-7.70) 10*3/uL Lymphocytes # (0.90-5.00) 10*3/uL Monocytes # (0.20-1.00) 10*3/uL Eosinophils # (0.04-0.35) 10*3/uL Basophils # (0.00-0.10) 10*3/uL PT (10.0-12.5) sec INR (<1.2) APTT (22.0-30.0) sec Sodium (137-145) mmol/L Potassium (3.5-5.1) mmol/L Chloride (98-107) mmol/L Carbon Dioxide (22-30) mmol/L Anion Gap mmol/L BUN (9-20) mg/dL Creatinine (0.66-1.25) mg/dL Est GFR (CKD-EPI)AfAm (>60 ml/min/1.73 sqM) Est GFR (CKD-EPI)NonAf (>60 ml/min/1.73 sqM) Glucose (74-99) mg/dL Lactic Ac Sepsis Rflx Y Plasma Lactic Acid Abdias 2.2 H* (0.7-2.0) mmol/L Calcium (8.4-10.2) mg/dL Phosphorus (2.5-4.5) mg/dL Magnesium (1.6-2.3) mg/dL Total Bilirubin (0.2-1.3) mg/dL AST (17-59) U/L ALT (4-49) U/L Alkaline Phosphatase (38-126) U/L Troponin I 0.056 H* (0.000-0.034) ng/mL NT-Pro-B Natriuret Pep pg/mL Total Protein (6.3-8.2) g/dL Albumin (3.5-5.0) g/dL TSH (0.465-4.680) mIU/L - EKG Data -: EKG Interpreted by Me Critical Care Time Critical Care Time: Yes Total Critical Care Time: 31 Disposition Clinical Impression: Atrial fibrillation with RVR, Dehydration Disposition: ADMITTED IP TO THIS HOSP Condition: Good Is patient prescribed a controlled substance at d/c from ED?: No Time of Disposition: 19:20
[2025-02-09] MEDS: DILTIAZEM 125 MG in DEXTROSE 5% IN WATER 100 ML IV SCH ×2 (18:25→22:47)
[2025-02-09] MEDS: DILTIAZEM 5 MG/ML 5 ML VIAL IVP STA (18:29)
[2025-02-09] MEDS: SODIUM CHLORIDE 0.9% 1,000 ML IV ONE (18:29)
[2025-02-09 18:33] LABS: Basophils # (A) 0.02 10*3/uL (0.00-0.10); Basophils % (A) 0.2 %; Eosinophils # (A) 0.03 10*3/uL (0.04-0.35); Eosinophils % (A) 0.3 %; HCT 45.7 % (39.6-50.0); HGB 17.0 g/dL (13.0-17.0); Lymphocytes # (A) 3.35 10*3/uL (0.90-5.00); Lymphocytes % (A) 31.3 %; MCH 32.0 pg (27.0-32.0); MCHC 37.2 g/dL (32.0-37.0); MCV 85.9 fL (80.0-97.0); Monocytes # (A) 0.81 10*3/uL (0.20-1.00); Monocytes % (A) 7.6 %; Neutrophils # (A) 6.46 10*3/uL (1.80-7.70); Neutrophils % (A) 60.3 %; Platelet Count 232 10*3/uL (140-440); RBC 5.32 10*6/uL (4.40-5.60); RDW 11.5 % (11.5-14.5); WBC 10.70 10*3/uL (4.50-10.00)
[2025-02-09 18:41] LABS: ALT 20 U/L (4-49); AST 31 U/L (17-59); African American GFR (CKD) 70 (>60 ml/min/1.73 sqM); Albumin 4.2 g/dL (3.5-5.0); Alkaline Phosphatase 72 U/L (38-126); Anion Gap 17 mmol/L; Blood Urea Nitrogen 29 mg/dL (9-20); Calcium 9.0 mg/dL (8.4-10.2); Carbon Dioxide 20 mmol/L (22-30); Chloride 90 mmol/L (98-107); Glucose 148 mg/dL (74-99); Magnesium 1.8 mg/dL (1.6-2.3); Non-African American GFR(CKD) 61 (>60 ml/min/1.73 sqM); Potassium 3.3 mmol/L (3.5-5.1); Sodium 127 mmol/L (137-145); Total Protein 6.6 g/dL (6.3-8.2)
[2025-02-09 18:42] LABS: INR 1.3 (<1.2); Partial Thromboplastin Time 22.3 sec (22.0-30.0); Prothrombin Time 13.7 sec (10.0-12.5)
[2025-02-09 18:50] LABS: NT-Pro-B-Type Natriuretic Pept 5630 pg/mL
[2025-02-09] MEDS: MAGNESIUM OXIDE 400 MG TAB PO STA ×2 (19:10)
[2025-02-09] MEDS: POTASSIUM BICARBONATE/CIT AC 20 MEQ TABLET.EFF PO ONE (19:11)
[2025-02-09] MEDS: MAGNESIUM SULFATE-D5W PMX 1 GM in DEXTROSE/WATER 1 100ML.BAG IVPB ONE (19:12)
[2025-02-09] MEDS ORDERED: ONDANSETRON 4 MG/2 ML VIAL IVP PRN (19:40)
[2025-02-09] MEDS ORDERED: MORPHINE SULFATE 4 MG/ML SYRINGE IV PRN (19:40)
[2025-02-09] MEDS ORDERED: NALOXONE 0.4 MG/ML 1 ML VIAL IV PRN (19:40)
[2025-02-09] MEDS: POTASSIUM CHLORIDE ER 20 MEQ TAB.ER PO STA (19:48)
[2025-02-09] MEDS: SODIUM CHLORIDE 0.9% 1,000 ML IV SCH (19:51)
[2025-02-09] MEDS: METOPROLOL TARTRATE 5 MG/5 ML VIAL IVP STA (19:53)
[2025-02-10 07:56] LABS: Basophils # (A) 0.02 10*3/uL (0.00-0.10); Basophils % (A) 0.2 %; Eosinophils # (A) 0.08 10*3/uL (0.04-0.35); Eosinophils % (A) 0.9 %; HCT 41.2 % (39.6-50.0); HGB 15.1 g/dL (13.0-17.0); Lymphocytes # (A) 2.78 10*3/uL (0.90-5.00); Lymphocytes % (A) 30.4 %; MCH 32.1 pg (27.0-32.0); MCHC 36.7 g/dL (32.0-37.0); MCV 87.5 fL (80.0-97.0); Monocytes # (A) 0.77 10*3/uL (0.20-1.00); Monocytes % (A) 8.4 %; Neutrophils # (A) 5.47 10*3/uL (1.80-7.70); Neutrophils % (A) 59.8 %; Platelet Count 189 10*3/uL (140-440); RBC 4.71 10*6/uL (4.40-5.60); RDW 11.6 % (11.5-14.5); WBC 9.15 10*3/uL (4.50-10.00)
[2025-02-10 08:04] LABS: ALT 16 U/L (4-49); AST 27 U/L (17-59); African American GFR (CKD) >90 (>60 ml/min/1.73 sqM); Albumin 3.6 g/dL (3.5-5.0); Alkaline Phosphatase 61 U/L (38-126); Anion Gap 11 mmol/L; Blood Urea Nitrogen 21 mg/dL (9-20); Calcium 8.7 mg/dL (8.4-10.2); Carbon Dioxide 24 mmol/L (22-30); Chloride 94 mmol/L (98-107); Glucose 94 mg/dL (74-99); Magnesium 1.9 mg/dL (1.6-2.3); Non-African American GFR(CKD) 78 (>60 ml/min/1.73 sqM); Potassium 4.0 mmol/L (3.5-5.1); Sodium 129 mmol/L (137-145); Total Protein 5.7 g/dL (6.3-8.2)
[2025-02-10] MEDS: METOPROLOL TARTRATE 50 MG TAB PO SCH (08:56)
[2025-02-10] MEDS: APIXABAN 5 MG TAB PO SCH (08:56)
[2025-02-10] MEDS: FLECAINIDE 50 MG TAB PO SCH (08:57)
--- NOTE | 2025-02-10 13:04 | P.CRDCN ---
History of Present Illness Consult date: 02/10/25 Reason for Consult (text): A-fib with RVR History of present illness: This is a 64-year-old male patient of Dr. Tomas with past medical history of paroxysmal atrial fibrillation on Eliquis, history of right common carotid artery stent placement, hypertension, hyperlipidemia, ventricular tachycardia, PAD under the care of Dr. Marquez, status post permanent pacemaker mild CAD. We have been asked to evaluate the patient for A-fib with RVR. Patient developed symptoms about 4 to 5 days ago with weakness, lightheadedness and dizziness. He denies having any chest pain. He denies syncopal episodes. Symptoms kept worsening until he was to the point where he could not stand up. He states he has been taking all of his medications as directed. He is currently in atrial fibrillation running 120s. Blood pressure 98/76, heart rate 92, pulse ox 98% on room air. Patient is seen today in the emergency center waiting for a bed on the cardiac stepdown unit. Patient remains in atrial fibrillation with ventricular rate of 120. He is status post Cardizem bolus of 20 mg followed by Cardizem drip at 15 mg/h. Patient is seen today in the emergency center waiting for a bed on the cardiac stepdown unit. -EKG: Atrial fibrillation with ventricular rate of 160 bpm -Laboratory studies: WBC 9.1, hemoglobin 15.1, sodium 129, potassium 4. BUN 21, creatinine 1.0. Troponin 0.056, 0.043, 0.039. Lactic acid initially 2.2 and now 1.4. TSH 2.73. -Home cardiac medications: Amlodipine 10 mg daily, Eliquis 5 mg twice daily, atorvastatin 20 mg at bedtime, lisinopril hydrochlorothiazide 20-25 mg 1 tablet daily, Lopressor 50 mg twice daily. -Cardiac catheterization performed 01/17/2024 revealed mild triple-vessel disease. -Echocardiogram performed 12/10/2023 revealed normal EF, mild MR. -Medtronic dual-chamber pacemaker implantation 02/19/[address] Henriquez. Review Of Systems: At the time of my exam: CONSTITUTIONAL: Denies fever or chills. HEENT: Denies blurred vision, vision changes, or eye pain. Denies hemoptysis CARDIOVASCULAR: Denies chest pain. Denies orthopnea. Denies PND. Denies palpitations RESPIRATORY: Denies shortness of breath. GASTROINTESTINAL: Denies abdominal pain. Denies nausea or vomiting. HEMATOLOGIC: Denies bleeding disorders. GENITOURINARY: Denies any blood in urine. SKIN: Denies puritis. Denies rash. Physical examination: Gen: This is a 64-year-old male in no acute distress VS: reviewed HEENT: Head is atraumatic, normocephalic. Pupils equal, round. Sclerae is anicteric. NECK: Supple. No JVD. LUNGS: Clear to auscultation. No wheezes or rhonchi. No intercostal retractions. HEART: Irregular rhythm. No murmur. ABDOMEN: Soft No tenderness. EXTREMITIES: No pedal edema. No calf tenderness. NEUROLOGICAL: Patient is awake, alert and oriented x3. Assessment: Paroxysmal atrial fibrillation with RVR Hyponatremia Hypokalemia Lactic acidosis Right common carotid artery stent placement Hypertension Hyperlipidemia Ventricular tachycardia PAD Permanent pacemaker Mild CAD Plan: Resume patient's home cardiac medications Start patient on flecainide 50 mg twice daily Continue Cardizem drip Potassium and magnesium replacement Obtain 2-D echocardiogram and Doppler study to assess cardiac structure and fu nction N.p.o. after midnight for possible cardioversion Further recommendations to follow based upon clinical course Thank you kindly for this consultation. Nurse practitioner note has been reviewed, I agree with documented findings and plan of care. Patient was seen and examined. Past Medical History Past Medical History: Atrial Fibrillation, Chest Pain / Angina, GERD/Reflux, Hyperlipidemia, Hypertension, Seizure Disorder Additional Past Medical History / Comment(s): -seizure, bloood infection, a-fib/a-aflutter History of Any Multi-Drug Resistant Organisms: MRSA Date of last positivie culture/infection: 02/09/20 MDRO Source:: HAND MRSA Past Surgical History: Cholecystectomy, Heart Catheterization, Orthopedic Surge ry, Pacemaker Additional Past Surgical History / Comment(s): Carotid stent right side, fx femur repair, cardioversion-04/25/[address] Tomas, [facility] February 2024 Past Anesthesia/Blood Transfusion Reactions: No Reported Reaction Date of Last Stent Placement:: 2007 Type of Cardiac Device: Permanent Pacemaker Device Placement Date:: 02/18/2024 Past Psychological History: No Psychological Hx Reported Smoking Status: Never smoker Past Alcohol Use History: None Reported Additional Past Alcohol Use History / Comment(s): . Past Drug Use History: Marijuana Additional Drug Use History / Comment(s): . - Past Family History Mother Family Medical History: CVA/TIA Additional Family Medical History / Comment(s): of stroke Father Family Medical History: Coronary Artery Disease (CAD) Additional Family Medical History / Comment(s): of heart attack Medications and Allergies Home Medications Medication Instructions Recorded Confirmed Type Atorvastatin [Lipitor] 20 mg PO HS 05/05/19 02/10/25 History Venlafaxine HCl [Effexor XR] 150 mg PO DAILY 02/09/20 02/10/25 History Lisinopril-Hctz 20-25 mg 1 tab PO DAILY 12/10/23 02/10/25 History [Zestoretic 20-25] Apixaban [Eliquis] 5 mg PO BID #90 tab 12/17/23 02/10/25 Rx Metoprolol Tartrate [Lopressor] 50 mg PO BID #180 tab 02/18/24 02/10/25 Rx Omeprazole 20 mg PO DAILY 04/24/24 02/10/25 History amLODIPine [Norvasc] 10 mg PO DAILY 02/10/25 02/10/25 History Allergies Allergy/AdvReac Type Severity Reaction Status Date / Time naproxen [From Naprosyn] Allergy Rash/Hives Verified 02/10/25 07:37 Physical Exam Vitals: Vital Signs Temp Pulse Resp BP Pulse Ox 02/10/25 06:05 101 H 16 104/76 95 02/10/25 05:21 98 F 108 H 18 106/58 98 02/10/25 05:01 93 02/10/25 04:01 101 H 16 125/80 96 02/10/25 03:22 99 02/10/25 02:31 117 H 16 117/58 02/10/25 01:24 98.6 F 129 H 16 105/70 96 02/09/25 20:00 78 16 106/73 98 02/09/25 18:44 87 12 111/63 100 02/09/25 17:52 97.9 F 181 H 20 93/75 99 Intake and Output 02/09/25 02/10/25 02/10/25 22:59 06:59 14:59 Intake Total 9.833 67.917 Balance 9.833 67.917 Intake: Intake, IV Titration ..7 Amount Diltiazem 125 mg In 9.833 Dextrose 5% in Water 100 ml @ 5 MG/HR 5 mls/hr IV .Q24H [facility] Rx#:[id number] Diltiazem 125 mg In 67.917 Dextrose 5% in Water 100 ml @ 5 MG/HR 5 mls/hr IV .Q24H [facility] Rx#:[id number] Other: Weight 77.111 kg Results 02/10/25 06:58 02/10/25 06:58 Cardiac Enzymes 02/09/25 02/09/25 02/09/25 Range/Units 18:21 18:21 22:31 AST 31 (17-59) U/L Troponin I 0.056 H* 0.043 H* (0.000-0.034) ng/mL 02/09/25 02/10/25 Range/Units 23:59 06:58 AST 27 (17-59) U/L Troponin I 0.039 H* (0.000-0.034) ng/mL Coagulation 02/09/25 Range/Units 18:21 PT 13.7 H (10.0-12.5) sec APTT 22.3 (22.0-30.0) sec CBC 02/09/25 02/10/25 Range/Units 18:21 06:58 WBC 10.70 H 9.15 (4.50-10.00) 10*3/uL RBC 5.32 4.71 (4.40-5.60) 10*6/uL Hgb 17.0 15.1 (13.0-17.0) g/dL Hct 45.7 41.2 (39.6-50.0) % Plt Count 232 189 (140-440) 10*3/uL Comprehensive Metabolic Panel 02/09/25 02/10/25 Range/Units 18:21 06:58 Sodium 127 L 129 L (137-145) mmol/L Potassium 3.3 L 4.0 (3.5-5.1) mmol/L Chloride 90 L 94 L (98-107) mmol/L Carbon Dioxide 20 L 24 (22-30) mmol/L BUN 29 H 21 H (9-20) mg/dL Creatinine 1.24 1.00 (0.66-1.25) mg/dL Glucose 148 H 94 (74-99) mg/dL Calcium 9.0 8.7 (8.4-10.2) mg/dL AST 31 27 (17-59) U/L ALT 20 16 (4-49) U/L Alkaline Phosphatase 72 61 (38-126) U/L Total Protein 6.6 5.7 L (6.3-8.2) g/dL Albumin 4.2 3.6 (3.5-5.0) g/dL Current Medications Generic Name Dose Route Start Last Admin Trade Name Freq PRN Reason Stop Dose Admin Apixaban 5 mg 02/10/25 09:00 Apixaban 5 Mg Tab PO BID MICHAEL Protocol Flecainide Acetate 50 mg 02/10/25 09:00 Flecainide 50 Mg Tab PO Q12HR [facility] Sodium Chloride 1,000 mls @ 75 mls/hr 02/09/25 19:45 02/09/25 19:51 Saline 0.9% IV 75 mls/hr .[id number] MICHAEL Administration Diltiazem HCl 125 mg/ Dextrose 125 mls @ 5 mls/hr 02/09/25 21:30 02/10/25 05:18 /Water IV 15 mg/hr .Q24H MICHAEL 15 mls/hr Administration Protocol 5 MG/HR Metoprolol Tartrate 50 mg 02/10/25 09:00 Metoprolol Tartrate 50 Mg Tab PO BID [facility] Morphine Sulfate 4 mg 02/09/25 19:40 Morphine Sulfate 4 Mg/Ml Syringe IV Q4HR PRN Severe Pain (Scale 7 to 10) Naloxone HCl 0.2 mg 02/09/25 19:40 Naloxone 0.4 Mg/Ml 1 Ml Vial IV Q2M PRN Opioid Reversal Ondansetron HCl 4 mg 02/09/25 19:40 Ondansetron 4 Mg/2 Ml Vial IVP Q8HR PRN Nausea And Vomiting Intake and Output 02/09/25 02/10/25 02/10/25 22:59 06:59 14:59 Intake Total 9.833 67.917 Balance 9.833 67.917 Intake: Intake, IV Titration .833 67.917 Amount Diltiazem 125 mg In 9.833 Dextrose 5% in Water 100 ml @ 5 MG/HR 5 mls/hr IV .Q24H [facility] Rx#:[id number] Diltiazem 125 mg In 67.917 Dextrose 5% in Water 100 ml @ 5 MG/HR 5 mls/hr IV .Q24H [facility] Rx#:[id number] Other: Weight 77.111 kg 02/10/25 06:58 02/10/25 06:58
--- NOTE | 2025-02-10 13:22 | P.HPIM ---
History of Present Illness H&P Date: 02/10/25 Reagan Lloyd is a 64-year-old male patient who presented with complaints of lightheadedness and weakness that has been increasing over the past 4 to 5 days patient reports that he felt like he had food poisoning 4 to 5 days ago but felt that his symptoms were getting worse and was worried he was in A-fib. Patient does have a past medical history of atrial fibrillation in which she is maintained on Eliquis. Additional history includes GERD, hyperlipidemia, hypertension, seizure disorder and permanent pacemaker. Patient also had cardioversion in April 2024. EKG completed in ER showing atrial fibrillation with RVR rate of 160. Patient was started on IV Cardizem and cardiology services have been consulted. Lab work completed showing white blood cell 10.7, hemoglobin 17.0, sodium 127, potassium 3.3, creatinine 1.24 and bun 29. Patient also had mildly elevated troponin 0.056, 0.043 and 0.039. At this time patient will be admitted patient remains on IV Cardizem home dose of Eliquis resumed per cardiology. Potassium replaced per protocol. 2D echo ordered possible plans for cardioversion per cardiology on 02/11/2025. At this time patient denies chest pain or shortness of breath. Patient denies nausea vomiting or diarrhea. Patient denies any urinary symptoms. Current vital signs temp 98.1, heart rate 87, respiratory rate 18, blood pressure 100/70 with pulse ox 96% on room air Review of Systems Please refer to HPI otherwise unremarkable All systems: negative Constitutional: Denies chills, Denies fever Eyes: denies blurred vision, denies pain Ears, nose, mouth and throat: Denies headache, Denies sore throat Cardiovascular: Denies chest pain, Denies shortness of breath Respiratory: Denies cough Gastrointestinal: Denies abdominal pain, Denies diarrhea, Denies nausea, Denies vomiting Musculoskeletal: Denies myalgias Integumentary: Denies pruritus, Denies rash Neurological: Denies numbness, Denies weakness Psychiatric: Denies anxiety, Denies depression Endocrine: Denies fatigue, Denies weight change Past Medical History Past Medical History: Atrial Fibrillation, Chest Pain / Angina, GERD/Reflux, Hyperlipidemia, Hypertension, Seizure Disorder Additional Past Medical History / Comment(s): -seizure, bloood infection, a-fib/a-aflutter History of Any Multi-Drug Resistant Organisms: MRSA Date of last positivie culture/infection: 02/09/20 MDRO Source:: HAND MRSA Past Surgical History: Cholecystectomy, Heart Catheterization, Orthopedic Surgery, Pacemaker Additional Past Surgical History / Comment(s): Carotid stent right side, fx femur repair, cardioversion-04/25/[address] Tomas, [facility] February 2024 Past Anesthesia/Blood Transfusion Reactions: No Reported Reaction Date of Last Stent Placement:: 2007 Type of Cardiac Device: Permanent Pacemaker Device Placement Date:: 02/18/2024 Past Psychological History: No Psychological Hx Reported Smoking Status: Never smoker Past Alcohol Use History: None Reported Additional Past Alcohol Use History / Comment(s): . Past Drug Use History: Marijuana Additional Drug Use History / Comment(s): . - Past Family History Mother Family Medical History: CVA/TIA Additional Family Medical History / Comment(s): of stroke Father Family Medical History: Coronary Artery Disease (CAD) Additional Family Medical History / Comment(s): of heart attack Medications and Allergies Home Medications Medication Instructions Recorded Confirmed Type Atorvastatin [Lipitor] 20 mg PO HS 05/05/19 02/10/25 History Venlafaxine HCl [Effexor XR] 150 mg PO DAILY 02/09/20 02/10/25 History Lisinopril-Hctz 20-25 mg 1 tab PO DAILY 12/10/23 02/10/25 History [Zestoretic 20-25] Apixaban [Eliquis] 5 mg PO BID #90 tab 12/17/23 02/10/25 Rx Metoprolol Tartrate [Lopressor] 50 mg PO BID #180 tab 02/18/24 02/10/25 Rx Omeprazole 20 mg PO DAILY 04/24/24 02/10/25 History amLODIPine [Norvasc] 10 mg PO DAILY 02/10/25 02/10/25 History Allergies Allergy/AdvReac Type Severity Reaction Status Date / Time naproxen [From Naprosyn] Allergy Rash/Hives Verified 02/10/25 07:37 Physical Exam Vitals: Vital Signs Temp Pulse Pulse Resp BP BP Pulse Ox 02/10/25 12:00 98.1 F 87 18 100/70 96 02/10/25 08:00 92 18 98/76 98 02/10/25 06:05 101 H 16 104/76 95 02/10/25 05:21 98 F 108 H 18 106/58 98 02/10/25 05:01 93 02/10/25 04:01 101 H 16 125/80 96 02/10/25 03:22 99 02/10/25 02:31 117 H 16 117/58 02/10/25 01:24 98.6 F 129 H 16 105/70 96 02/09/25 20:00 78 16 106/73 98 02/09/25 18:44 87 12 111/63 100 02/09/25 17:52 97.9 F 181 H 20 93/75 99 Intake and Output 02/09/25 02/10/25 02/10/25 22:59 06:59 14:59 Intake Total 9.833 67.917 72.167 Balance 9.833 67.917 72.167 Intake: Intake, IV Titration 9.833 67.917 72.167 Amount Diltiazem 125 mg In 9.833 Dextrose 5% in Water 100 ml @ 5 MG/HR 5 mls/hr IV .Q24H [facility] Rx#:[id number] Diltiazem 125 mg In 67.917 72.167 Dextrose 5% in Water 100 ml @ 5 MG/HR 5 mls/hr IV .Q24H [facility] Rx#:[id number] Other: Weight 77.111 kg Head normocephalic Neck supple Lungs clear to auscultation bilaterally no wheezing or crackles Heart irregular rate known atrial fibrillation Abdomen is soft nontender nondistended positive bowel sounds no hepatosplenomegaly Extremities no edema Neuro alert and orientated to 3 Results CBC & Chem 7: 02/10/25 06:58 02/10/25 06:58 Labs: Abnormal Lab Results - Last 24 Hours (Table) 02/09/25 02/09/25 02/09/25 Range/Units 18:21 18:21 18:21 WBC 10.70 H (4.50-10.00) 10*3/uL MCH (27.0-32.0) pg MCHC 37.2 H (32.0-37.0) g/dL Eosinophils # 0.03 L (0.04-0.35) 10*3/uL PT 13.7 H (10.0-12.5) sec INR 1.3 H (<1.2) Sodium 127 L (137-145) mmol/L Potassium 3.3 L (3.5-5.1) mmol/L Chloride 90 L (98-107) mmol/L Carbon Dioxide 20 L (22-30) mmol/L BUN 29 H (9-20) mg/dL Glucose 148 H (74-99) mg/dL Plasma Lactic Acid Abdias (0.7-2.0) mmol/L Troponin I (0.000-0.034) ng/mL Total Protein (6.3-8.2) g/dL 02/09/25 02/09/25 02/09/25 Range/Units 18:21 18:21 22:31 WBC (4.50-10.00) 10*3/uL MCH (27.0-32.0) pg MCHC (32.0-37.0) g/dL Eosinophils # (0.04-0.35) 10*3/uL PT (10.0-12.5) sec INR (<1.2) Sodium (137-145) mmol/L Potassium (3.5-5.1) mmol/L Chloride (98-107) mmol/L Carbon Dioxide (22-30) mmol/L BUN (9-20) mg/dL Glucose (74-99) mg/dL Plasma Lactic Acid Abdias 2.2 H* (0.7-2.0) mmol/L Troponin I 0.056 H* 0.043 H* (0.000-0.034) ng/mL Total Protein (6.3-8.2) g/dL 02/09/25 02/10/25 02/10/25 Range/Units 23:59 06:58 06:58 WBC (4.50-10.00) 10*3/uL MCH 32.1 H (27.0-32.0) pg MCHC (32.0-37.0) g/dL Eosinophils # (0.04-0.35) 10*3/uL PT (10.0-12.5) sec INR (<1.2) Sodium 129 L (137-145) mmol/L Potassium (3.5-5.1) mmol/L Chloride 94 L (98-107) mmol/L Carbon Dioxide (22-30) mmol/L BUN 21 H (9-20) mg/dL Glucose (74-99) mg/dL Plasma Lactic Acid Abdias (0.7-2.0) mmol/L Troponin I 0.039 H* (0.000-0.034) ng/mL Total Protein 5.7 L (6.3-8.2) g/dL Assessment and Plan Assessment: Paroxysmal atrial fibrillation with RVR Hyponatremia Hypokalemia History of previous cardioversion History of essential hypertension History of right carotid artery stent placement History of ventricular tachycardia with permanent pacemaker placement History of peripheral arterial disease DVT prophylaxis Eliquis. GI prophylax Protonix Patient started on IV Cardizem Potassium replaced per protocol Continue normal saline at 75 for hyponatremia Repeat labs ordered Possible cardioversion per cardiology Time with Patient: Greater than 30 (Greater than 60% of the total time spent in counseling and coordination of care)
[2025-02-10] MEDS: ATORVASTATIN 20 MG TAB PO SCH (23:02)
[2025-02-11] MEDS: PANTOPRAZOLE 40 MG TABLET PO SCH (06:23)
[2025-02-11] MEDS: VENLAFAXINE HCL ER 150 MG CAP PO SCH (08:32)
[2025-02-11] MEDS: DILTIAZEM 5 MG/ML 5 ML VIAL IVP STA (08:51)
[2025-02-11 09:45] LABS: Basophils # (A) 0.01 10*3/uL (0.00-0.10); Basophils % (A) 0.2 %; Eosinophils # (A) 0.04 10*3/uL (0.04-0.35); Eosinophils % (A) 0.6 %; HCT 37.1 % (39.6-50.0); HGB 13.3 g/dL (13.0-17.0); Lymphocytes # (A) 1.25 10*3/uL (0.90-5.00); Lymphocytes % (A) 19.6 %; MCH 31.4 pg (27.0-32.0); MCHC 35.8 g/dL (32.0-37.0); MCV 87.5 fL (80.0-97.0); Monocytes # (A) 0.46 10*3/uL (0.20-1.00); Monocytes % (A) 7.2 %; Neutrophils # (A) 4.59 10*3/uL (1.80-7.70); Neutrophils % (A) 72.1 %; Platelet Count 159 10*3/uL (140-440); RBC 4.24 10*6/uL (4.40-5.60); RDW 11.7 % (11.5-14.5); WBC 6.37 10*3/uL (4.50-10.00)
[2025-02-11 10:06] LABS: ALT 15 U/L (4-49); AST 23 U/L (17-59); African American GFR (CKD) >90 (>60 ml/min/1.73 sqM); Albumin 3.4 g/dL (3.5-5.0); Alkaline Phosphatase 62 U/L (38-126); Anion Gap 9 mmol/L; Blood Urea Nitrogen 21 mg/dL (9-20); Calcium 8.9 mg/dL (8.4-10.2); Carbon Dioxide 25 mmol/L (22-30); Chloride 97 mmol/L (98-107); Glucose 94 mg/dL (74-99); Non-African American GFR(CKD) 87 (>60 ml/min/1.73 sqM); Potassium 3.7 mmol/L (3.5-5.1); Sodium 131 mmol/L (137-145); Total Protein 5.6 g/dL (6.3-8.2)
[2025-02-11] MEDS: LISINOPRIL-HCTZ 20-12.5 MG 1 EACH TAB PO SCH (12:45)
--- NOTE | 2025-02-11 13:04 | CA ---
Transthoracic Echo Report Name: Reagan Lloyd Age: 64 Gender: M : 1960 Exam Date: 02/11/2025 09:10 Exam Location: [facility] Ht (in): 69 Wt (lb): 170 Ordering Physician: Spring Rich Attending/Referring Phys: [id number], Layla [employer] Registrar Maureen Herring RDCS Procedure CPT: Indications: LVF, AF RVR Cardiac Hx: Pacemaker Technical Quality: Contrast 1: Definity Total Dose (mL): 2 Contrast 2: Total Dose (mL): MEASUREMENTS (Male / Female) Normal Values 2D ECHO LV Diastolic Diameter PLAX 4.2 cm 4.2 - 5.9 / 3.9 - 5.3 cm LV Systolic Diameter PLAX 2.3 cm IVS Diastolic Thickness 1.0 cm 0.6 - 1.0 / 0.6 - 0.9 cm LVPW Diastolic Thickness 1.0 cm 0.6 - 1.0 / 0.6 - 0.9 cm LV Relative Wall Thickness 0.5 RV Internal Dim ED PLAX 2.4 cm LVOT Diameter 1.6 cm Aortic Root Diameter 3.0 cm LA Systolic Diameter LX 3.9 cm 3.0 - 4.0 / 2.7 - 3.8 cm LA Volume 81.5 cm??? 18 - 58 / 22 - 52 cm??? LA Volume Index 41.9 cm???/m??? 16 - 28 cm???/m??? DOPPLER TR Peak Velocity 218.6 cm/s TR Peak Gradient 19.1 mmHg FINDINGS Left Ventricle Left ventricular ejection fraction is estimated at 65-70 %. Hyperdynamic left ventricular systolic function. No obvious regional wall motion abnormalities. Left ventricular cavity size normal. Left ventricular wall thickness normal. Right Ventricle Normal right ventricular size and function. Right ventricular systolic pressure within normal limits. Right Atrium Normal right atrial size. Left Atrium Severely increased left atrial volume. Mildly increased left atrial area. Mitral Valve Structurally normal mitral valve. No mitral stenosis. Trace mitral regurgitation. Aortic Valve Trileaflet aortic valve. Diffuse thickening (sclerosis) of the aortic valve cusps without reduced excursion. No aortic regurgitation. Tricuspid Valve Structurally normal tricuspid valve. No tricuspid stenosis. Trace tricuspid regurgitation. Pulmonic Valve Structurally normal pulmonic valve. No pulmonic stenosis. Trace pulmonic regurgitation. Pericardium Minimal pericardial effusion (normal variant). Aorta Aortic annulus normal. CONCLUSIONS Normal LV function Aortic sclerosis without significant stenosis Previewed by: Dr. Jose Galindo MD (Electronically Signed) Final Date: 11 February 2025 13:03
--- NOTE | 2025-02-11 13:30 | P.PN ---
Subjective Progress Note Date: 02/11/25 Reason for Consult (text): A-fib with RVR History of present illness: This is a 64-year-old male patient of Dr. Tomas with past medical history of paroxysmal atrial fibrillation on Eliquis, history of right common carotid artery stent placement, hypertension, hyperlipidemia, ventricular tachycardia, PAD under the care of Dr. Marquez, status post permanent pacemaker mild CAD. We have been asked to evaluate the patient for A-fib with RVR. Patient developed symptoms about 4 to 5 days ago with weakness, lightheadedness and dizziness. He denies having any chest pain. He denies syncopal episodes. Symptoms kept worsening until he was to the point where he could not stand up. He states he has been taking all of his medications as directed. He is currently in atrial fibrillation running 120s. Blood pressure 98/76, heart rate 92, pulse ox 98% on room air. Patient is seen today in the emergency center waiting for a bed on the cardiac stepdown unit. Patient remains in atrial fibrillation with ventricular rate of 120. He is status post Cardizem bolus of 20 mg followed by Cardizem drip at 15 mg/h. Patient is seen today in the emergency center waiting for a bed on the cardiac stepdown unit. -EKG: Atrial fibrillation with ventricular rate of 160 bpm -Laboratory studies: WBC 9.1, hemoglobin 15.1, sodium 129, potassium 4. BUN 21, creatinine 1.0. Troponin 0.056, 0.043, 0.039. Lactic acid initially 2.2 and now 1.4. TSH 2.73. -Home cardiac medications: Amlodipine 10 mg daily, Eliquis 5 mg twice daily, atorvastatin 20 mg at bedtime, lisinopril hydrochlorothiazide 20-25 mg 1 tablet daily, Lopressor 50 mg twice daily. -Cardiac catheterization performed 01/17/2024 revealed mild triple-vessel disease. -Echocardiogram performed 12/10/2023 revealed normal EF, mild MR. -Medtronic dual-chamber pacemaker implantation 02/19/[address] Henriquez. 02/11/2025 Patient seen and examined on the cardiac stepdown unit. Patient remains in A- fib with RVR. Yesterday he was started on flecainide 50 mg twice daily and continued on Cardizem drip. He is currently n.p.o. for possible cardioversion. Dr. Jessica discussed with the patient plan for attempting conversion with medication and will be resumed back on Cardizem drip with a bolus of 5 mg. Blood pressure 114/72, heart rate 140, pulse ox 98% on room air. Repeat blood work reveals hemoglobin 13.3, BUN 21 creatinine 0.92. Echocardiogram is pending. Physical examination: Gen: This is a 64-year-old male in no acute distress VS: reviewed HEENT: Head is atraumatic, normocephalic. Pupils equal, round. Sclerae is anicteric. NECK: Supple. No JVD. LUNGS: Clear to auscultation. No wheezes or rhonchi. No intercostal retractions. HEART: Irregular rhythm. No murmur. ABDOMEN: Soft No tenderness. EXTREMITIES: No pedal edema. No calf tenderness. NEUROLOGICAL: Patient is awake, alert and oriented x3. Assessment: Paroxysmal atrial fibrillation with RVR Hyponatremia Hypokalemia Lactic acidosis Right common carotid artery stent placement Hypertension Hyperlipidemia Ventricular tachycardia PAD Permanent pacemaker Mild CAD Plan: Continue patient's home cardiac medications Continue patient on flecainide 50 mg twice daily Resume Cardizem bolus 5 mg followed by Cardizem drip Potassium and magnesium replacement Obtain 2-D echocardiogram and Doppler study to assess cardiac structure and function N.p.o. after midnight for possible cardioversion Further recommendations to follow based upon clinical course Thank you kindly for this consultation. Nurse practitioner note has been reviewed, I agree with documented findings and plan of care. Patient was seen and examined. Objective - Vital Signs Vital signs: Vital Signs Temp 98.2 F 02/11/25 12:03 Pulse 74 02/11/25 12:03 Resp 14 02/11/25 12:03 BP 108/63 02/11/25 12:03 Pulse Ox 100 02/11/25 12:03 FiO2 Intake & Output 02/10/25 02/11/25 02/11/25 18:59 06:59 18:59 Intake Total 101.501 0 Balance 101.501 0 Weight 77.111 kg Intake: Intake, IV Titration 101.501 0 Amount Diltiazem 125 mg In 101.501 0 Dextrose 5% in Water 100 ml @ 5 MG/HR 5 mls/hr IV .Q24H [facility] Rx#:[id number] Other: Voiding Method Toilet # Voids 2 - Labs CBC & Chem 7: 02/11/25 08:49 02/11/25 08:49 Labs: Abnormal Lab Results - Last 24 Hours (Table) 02/11/25 02/11/25 Range/Units 08:49 08:49 RBC 4.24 L (4.40-5.60) 10*6/uL Hct 37.1 L (39.6-50.0) % Sodium 131 L (137-145) mmol/L Chloride 97 L (98-107) mmol/L BUN 21 H (9-20) mg/dL Total Protein 5.6 L (6.3-8.2) g/dL Albumin 3.4 L (3.5-5.0) g/dL
[2025-02-11] MEDS: ACETAMINOPHEN TAB 500 MG TAB PO PRN (17:32)
[2025-02-12] MEDS ORDERED: SODIUM CHLORIDE 0.9% 1,000 ML IV SCH (09:45)
--- NOTE | 2025-02-12 11:33 | P.PN ---
Subjective Progress Note Date: 02/12/25 Reason for Consult (text): A-fib with RVR History of present illness: This is a 64-year-old male patient of Dr. Tomas with past medical history of paroxysmal atrial fibrillation on Eliquis, history of right common carotid artery stent placement, hypertension, hyperlipidemia, ventricular tachycardia, PAD under the care of Dr. Marquez, status post permanent pacemaker mild CAD. We have been asked to evaluate the patient for A-fib with RVR. Patient developed symptoms about 4 to 5 days ago with weakness, lightheadedness and dizziness. He denies having any chest pain. He denies syncopal episodes. Symptoms kept worsening until he was to the point where he could not stand up. He states he has been taking all of his medications as directed. He is currently in atrial fibrillation running 120s. Blood pressure 98/76, heart rate 92, pulse ox 98% on room air. Patient is seen today in the emergency center waiting for a bed on the cardiac stepdown unit. Patient remains in atrial fibrillation with ventricular rate of 120. He is status post Cardizem bolus of 20 mg followed by Cardizem drip at 15 mg/h. Patient is seen today in the emergency center waiting for a bed on the cardiac stepdown unit. -EKG: Atrial fibrillation with ventricular rate of 160 bpm -Laboratory studies: WBC 9.1, hemoglobin 15.1, sodium 129, potassium 4. BUN 21, creatinine 1.0. Troponin 0.056, 0.043, 0.039. Lactic acid initially 2.2 and now 1.4. TSH 2.73. -Home cardiac medications: Amlodipine 10 mg daily, Eliquis 5 mg twice daily, atorvastatin 20 mg at bedtime, lisinopril hydrochlorothiazide 20-25 mg 1 tablet daily, Lopressor 50 mg twice daily. -Cardiac catheterization performed 01/17/2024 revealed mild triple-vessel disease. -Echocardiogram performed 12/10/2023 revealed normal EF, mild MR. -[employer] dual-chamber pacemaker implantation 02/19/[address] Henriquez. 02/11/2025 Patient seen and examined on the cardiac stepdown unit. Patient remains in A- fib with RVR. Yesterday he was started on flecainide 50 mg twice daily and continued on Cardizem drip. He is currently n.p.o. for possible cardioversion. Dr. Jessica discussed with the patient plan for attempting conversion with medication and will be resumed back on Cardizem drip with a bolus of 5 mg. Blood pressure 114/72, heart rate 140, pulse ox 98% on room air. Repeat blood work reveals hemoglobin 13.3, BUN 21 creatinine 0.92. Echocardiogram is pending. 02/12/2025 Patient seen and examined. He continues to have RVR up into the 120s. Yesterday, patient was resumed back on Cardizem bolus followed by drip currently at 5 mg/h. He denies any palpitations no chest pain no shortness of breath. He has been n.p.o. with plan for cardioversion today but due to scheduling difficulties, this will be held until possibly tomorrow. Patient is continued on Cardizem drip, flecainide 50 mg twice daily, Lopressor 50 mg twice daily and also on Eliquis. Blood pressure 111/67, pulse ox 97% on room air. Echocardiogram reveals normal LV function, aortic sclerosis without significant stenosis. Physical examination: Gen: This is a 64-year-old male in no acute distress VS: reviewed HEENT: Head is atraumatic, normocephalic. Pupils equal, round. Sclerae is anicteric. NECK: Supple. No JVD. LUNGS: Clear to auscultation. No wheezes or rhonchi. No intercostal retractions. HEART: Irregular rhythm. No murmur. ABDOMEN: Soft No tenderness. EXTREMITIES: No pedal edema. No calf tenderness. NEUROLOGICAL: Patient is awake, alert and oriented x3. Assessment: Paroxysmal atrial fibrillation with RVR Hyponatremia Hypokalemia Lactic acidosis Right common carotid artery stent placement Hypertension Hyperlipidemia Ventricular tachycardia PAD Permanent pacemaker Mild CAD Plan: Continue patient's home cardiac medications Continue patient on flecainide 50 mg twice daily, metoprolol tartrate 50 mg twi ce daily, Eliquis 5 mg twice daily N.p.o. after midnight for possible cardioversion Further recommendations to follow based upon clinical course Nurse practitioner note has been reviewed, I agree with documented findings and plan of care. Patient was seen and examined. Objective - Vital Signs Vital signs: Vital Signs Temp 98.3 F 02/12/25 09:04 Pulse 96 02/12/25 09:04 Resp 14 02/12/25 09:04 BP 111/67 02/12/25 09:04 Pulse Ox 97 02/12/25 09:04 FiO2 Intake & Output 02/11/25 02/12/25 02/12/25 18:59 06:59 18:59 Intake Total 360 0 Balance 360 0 Weight 70.4 kg Intake: Intake, IV Titration 0 Amount Diltiazem 125 mg In 0 Dextrose 5% in Water 100 ml @ 5 MG/HR 5 mls/hr IV .Q24H [facility] Rx#:[id number] Oral 360 0 Other: Voiding Method Toilet Toilet # Voids 2 1 - Labs CBC & Chem 7: 02/11/25 08:49 02/11/25 08:49 Labs: Abnormal Lab Results - Last 24 Hours (Table) 02/11/25 02/11/25 Range/Units 08:49 08:49 RBC 4.24 L (4.40-5.60) 10*6/uL Hct 37.1 L (39.6-50.0) % Sodium 131 L (137-145) mmol/L Chloride 97 L (98-107) mmol/L BUN 21 H (9-20) mg/dL Total Protein 5.6 L (6.3-8.2) g/dL Albumin 3.4 L (3.5-5.0) g/dL
--- NOTE | 2025-02-12 13:26 | P.PN ---
Subjective Progress Note Date: 02/11/25 Reagan Lloyd is a 64-year-old male patient who presented with complaints of lightheadedness and weakness that has been increasing over the past 4 to 5 days patient reports that he felt like he had food poisoning 4 to 5 days ago but felt that his symptoms were getting worse and was worried he was in A-fib. Patient does have a past medical history of atrial fibrillation in which she is maintained on Eliquis. Additional history includes GERD, hyperlipidemia, hypertension, seizure disorder and permanent pacemaker. Patient also had cardioversion in April 2024. EKG completed in ER showing atrial fibrillation with RVR rate of 160. Patient was started on IV Cardizem and cardiology services have been consulted. Lab work completed showing white blood cell 10.7, hemoglobin 17.0, sodium 127, potassium 3.3, creatinine 1.24 and bun 29. Patient also had mildly elevated troponin 0.056, 0.043 and 0.039. At this time patient will be admitted patient remains on IV Cardizem home dose of Eliquis resumed per cardiology. Potassium replaced per protocol. 2D echo ordered possible plans for cardioversion per cardiology on 02/11/2025. At this time patient denies chest pain or shortness of breath. Patient denies nausea vomiting or diarrhea. Patient denies any urinary symptoms. Current vital signs temp 98.1, heart rate 87, respiratory rate 18, blood pressure 100/70 with pulse ox 96% on room air On 02/11/2025 patient is alert and oriented x 3. Tentative plans for possible cardioversion.Patient denies chest pain or shortness of breath. Patient denies nausea vomiting or diarrhea. Patient denies any urinary burning or frequency. Objective - Vital Signs Vital signs: Vital Signs Temp 98.2 F 02/11/25 16:35 Pulse 115 H 02/11/25 16:35 Resp 14 02/11/25 16:35 BP 109/59 02/11/25 16:35 Pulse Ox 99 02/11/25 16:35 FiO2 Intake & Output 02/10/25 02/11/25 02/11/25 18:59 06:59 18:59 Intake Total 101.501 360 Balance 101.501 360 Weight 77.111 kg Intake: Intake, IV Titration 101.501 0 Amount Diltiazem 125 mg In 101.501 0 Dextrose 5% in Water 100 ml @ 5 MG/HR 5 mls/hr IV .Q24H [facility] Rx#:[id number] Oral 360 Other: Voiding Method Toilet # Voids 2 - Exam In general patient is alert and oriented x 3 in no distress HEENT head normocephalic and atraumatic Neck is supple no JVD no goiter no lymphadenopathy no carotid bruit Chest examination is clear to auscultation no crackles no wheezing Cardiac exam reveals regular heart sounds S1 and S2 no gallops no murmurs Abdomen is soft nontender no organomegaly with normal bowel sounds Extremity exam reveals no edema no cyanosis or clubbing Neurological examination reveals no gross focal deficits - Labs CBC & Chem 7: 02/11/25 08:49 02/11/25 08:49 Labs: Abnormal Lab Results - Last 24 Hours (Table) 02/11/25 02/11/25 Range/Units 08:49 08:49 RBC 4.24 L (4.40-5.60) 10*6/uL Hct 37.1 L (39.6-50.0) % Sodium 131 L (137-145) mmol/L Chloride 97 L (98-107) mmol/L BUN 21 H (9-20) mg/dL Total Protein 5.6 L (6.3-8.2) g/dL Albumin 3.4 L (3.5-5.0) g/dL Assessment and Plan Assessment: Paroxysmal atrial fibrillation with RVR Hyponatremia Hypokalemia History of previous cardioversion History of essential hypertension History of right carotid artery stent placement History of ventricular tachycardia with permanent pacemaker placement History of peripheral arterial disease DVT prophylaxis Eliquis. GI prophylax Protonix Patient started on IV Cardizem Potassium replaced per protocol Continue normal saline at 75 for hyponatremia Repeat labs ordered Possible cardioversion per cardiology
--- NOTE | 2025-02-12 13:27 | P.PN ---
Subjective Progress Note Date: 02/12/25 Reagan Lloyd is a 64-year-old male patient who presented with complaints of lightheadedness and weakness that has been increasing over the past 4 to 5 days patient reports that he felt like he had food poisoning 4 to 5 days ago but felt that his symptoms were getting worse and was worried he was in A-fib. Patient does have a past medical history of atrial fibrillation in which she is maintained on Eliquis. Additional history includes GERD, hyperlipidemia, hypertension, seizure disorder and permanent pacemaker. Patient also had cardioversion in April 2024. EKG completed in ER showing atrial fibrillation with RVR rate of 160. Patient was started on IV Cardizem and cardiology services have been consulted. Lab work completed showing white blood cell 10.7, hemoglobin 17.0, sodium 127, potassium 3.3, creatinine 1.24 and bun 29. Patient also had mildly elevated troponin 0.056, 0.043 and 0.039. At this time patient will be admitted patient remains on IV Cardizem home dose of Eliquis resumed per cardiology. Potassium replaced per protocol. 2D echo ordered possible plans for cardioversion per cardiology on 02/11/2025. At this time patient denies chest pain or shortness of breath. Patient denies nausea vomiting or diarrhea. Patient denies any urinary symptoms. Current vital signs temp 98.1, heart rate 87, respiratory rate 18, blood pressure 100/70 with pulse ox 96% on room air On 02/11/2025 patient is alert and oriented x 3. Tentative plans for possible cardioversion.Patient denies chest pain or shortness of breath. Patient denies nausea vomiting or diarrhea. Patient denies any urinary burning or frequency. On 02/12/2025 patient is alert and oriented x 3. Patient frustrated in discussing leaving AMA. Patient's at bedside trying to convince him to stay. Patient remains on IV Cardizem possible plans for cardioversion tomorrow 02/13/2025. Patient denies chest pain or shortness of breath. Patient denies nausea vomiting or diarrhea. Patient denies any urinary burning or frequency. Current vital signs temp 97.6, heart rate 71, respiratory rate 14, blood pressure 123/70 with pulse ox of 98% on room air Objective - Vital Signs Vital signs: Vital Signs Temp 97.6 F 02/12/25 12:21 Pulse 71 02/12/25 12:21 Resp 14 02/12/25 12:21 BP 123/70 02/12/25 12:21 Pulse Ox 98 02/12/25 12:21 FiO2 Intake & Output 02/11/25 02/12/25 02/12/25 18:59 06:59 18:59 Intake Total 360 0 Balance 360 0 Weight 70.4 kg Intake: Intake, IV Titration 0 Amount Diltiazem 125 mg In 0 Dextrose 5% in Water 100 ml @ 5 MG/HR 5 mls/hr IV .Q24H [facility] Rx#:[id number] Oral 360 0 Other: Voiding Method Toilet Toilet # Voids 2 1 - Exam In general patient is alert and oriented x 3 in no distress HEENT head normocephalic and atraumatic Neck is supple no JVD no goiter no lymphadenopathy no carotid bruit Chest examination is clear to auscultation no crackles no wheezing Cardiac exam reveals regular heart sounds S1 and S2 no gallops no murmurs Abdomen is soft nontender no organomegaly with normal bowel sounds Extremity exam reveals no edema no cyanosis or clubbing Neurological examination reveals no gross focal deficits - Labs CBC & Chem 7: 02/11/25 08:49 02/11/25 08:49 Assessment and Plan Assessment: Paroxysmal atrial fibrillation with RVR Hyponatremia Hypokalemia History of previous cardioversion History of essential hypertension History of right carotid artery stent placement History of ventricular tachycardia with permanent pacemaker placement History of peripheral arterial disease DVT prophylaxis Eliquis. GI prophylax Protonix Patient started on IV Cardizem Potassium replaced per protocol Continue normal saline at 75 for hyponatremia Repeat labs ordered Possible cardioversion per cardiology
[2025-02-12 16:26] VITALS: BP 112/71; PULSE 61; RESP 16; TEMP 97.8
== END 2025-02-12 20:05 | disposition home or self-care (01) | DRG 309 ==
LOC: SUPCPDRO 17:46 → EC 17:46 → 3SCARD 19:41
PROVIDERS: ADMIT Internal Medicine; ATTEND Internal Medicine
DX: I48.0 Paroxysmal atrial fibrillation (principal); E87.1 Hypo-osmolality and hyponatremia; E87.20 Acidosis, unspecified; I47.20 Ventricular tachycardia, unspecified; I73.9 Peripheral vascular disease, unspecified; I10 Essential (primary) hypertension; Z95.828 Presence of other vascular implants and grafts; E86.0 Dehydration; E78.5 Hyperlipidemia, unspecified; E87.6 Hypokalemia; I25.10 Atherosclerotic heart disease of native coronary artery without angina pectoris; K21.9 Gastro-esophageal reflux disease without esophagitis; R79.89 Other specified abnormal findings of blood chemistry; Z79.01 Long term (current) use of anticoagulants; Z79.899 Other long term (current) drug therapy; Z95.0 Presence of cardiac pacemaker; Z86.14 Personal history of Methicillin resistant Staphylococcus aureus infection; Z88.6 Allergy status to analgesic agent
CPT/HCPCS: 36415; 80053; 83605; 83735; 83880; 84100; 84443; 84484; 85025; 85610; 85730; 93005; 93306; 96361; 96365; 96366; 96368; 96375; 99291